=== PATIENT | female | born 1935 | race Caucasian/White ===

== ENCOUNTER → 2016-11-20 | Outpatient (CLI) | payer MEDICARE ==
--- NOTE | 2016-11-21 09:03 | MM ---
Reason for exam: screening (asymptomatic). Last mammogram was performed 1 year ago. History: Patient is postmenopausal and has history of endometrial cancer at age 31. Family history of premenopausal breast cancer in maternal grandmother at age 40 and breast cancer in maternal aunt. Taking estrogen for 38 years beginning at age 57. Physical Findings: A clinical breast exam by your physician is recommended on an annual basis and results should be correlated with mammographic findings. MG 3D Screening Mammo W/Cad Bilateral CC and MLO view(s) were taken. Prior study comparison: November 17, 2015, bilateral MG 3d screening mammo w/cad. September 23, 2014, bilateral MG screening mammo w CAD. September 11, 2013, bilateral digital screening mammo w/CAD. There are scattered fibroglandular densities. Finding: There are typically benign round calcifications in both breasts. There is no discrete abnormality. ASSESSMENT: Benign, BI-RAD 2 RECOMMENDATION: Routine screening mammogram of both breasts in 1 year.
== END | disposition home or self-care (01) ==
LOC: RADMAMWWP 12:46 → EEVIPCON 13:00
PROVIDERS: ATTEND Family Medicine
DX: Z12.31 Encounter for screening mammogram for malignant neoplasm of breast (principal); Z80.3 Family history of malignant neoplasm of breast; Z98.82 Breast implant status
CPT/HCPCS: 77063; G0202

== ENCOUNTER → 2017-11-26 | Outpatient (CLI) | payer MEDICARE ==
--- NOTE | 2017-11-27 14:30 | MM ---
Reason for exam: screening (asymptomatic). Last mammogram was performed 1 year ago. History: Patient is postmenopausal and has history of endometrial cancer at age 31. Family history of premenopausal breast cancer in maternal grandmother at age 40 and breast cancer in maternal aunt. Taking estrogen for 38 years beginning at age 57. Physical Findings: A clinical breast exam by your physician is recommended on an annual basis and results should be correlated with mammographic findings. MG 3D Screening Mammo W/Cad Bilateral CC and MLO view(s) were taken. Prior study comparison: November 20, 2016, bilateral MG 3d screening mammo w/cad. November 17, 2015, bilateral MG 3d screening mammo w/cad. There are scattered fibroglandular densities. There is a stable left breast mass back to 11/17/15. Benign calcifications bilaterally. No suspicious abnormality. ASSESSMENT: Benign, BI-RAD 2 RECOMMENDATION: Routine screening mammogram of both breasts in 1 year.
== END | disposition home or self-care (01) ==
LOC: RADMAMWWP 13:06
PROVIDERS: ATTEND Family Medicine
DX: Z12.31 Encounter for screening mammogram for malignant neoplasm of breast (principal)
CPT/HCPCS: 77063; 77067

== ENCOUNTER 2018-09-10 15:34 | Inpatient (IN) | payer MEDICARE ==
[2018-09-10] MEDS ORDERED: SODIUM CHLORIDE 0.9% 1,000 ML IV STA (17:04)
[2018-09-10] MEDS ORDERED: SODIUM CHLORIDE 0.9% 500 ML 500 ML IV STA (17:04)
[2018-09-10] MEDS ORDERED: cefTRIAXone 2,000 MG in SODIUM CHLORIDE 0.9% 100 ML IVPB STA (17:05)
--- NOTE | 2018-09-10 17:23 | ED ---
Skin/Abscess/FB HPI - General Chief complaint: Skin/Abscess/Foreign Body Stated complaint: Rash groin area Time Seen by Provider: 09/10/18 16:41 Source: patient Mode of arrival: ambulatory Limitations: no limitations - History of Present Illness Initial comments: This is an 83-year-old female to the ER for evaluation she presents today for evaluation regards to rash. Patient has 2 rashes or rashes on her lower back area on the right side that is painful she also has rash since under her legs and her vagina or vaginal area. Patient also states she has burning and itching or vaginal area as well as dysuria. Patient denies fevers she does have history of diabetes. No current abdominal pain. No modifying factors for symptoms of been increasing for the last 3 days. Family does state the patient does not have very good hygiene or showers. MD complaint: rash (Posterior back and vaginal perineal area), other (Cellulitis ) -: days(s) Tetanus Up to Date: yes Location: buttocks, genitals Severity: moderate Severity scale (1-10): 4 Quality: aching, constant Consistency: constant Improves with: none Worsens with: none Context: none Associated symptoms: other (Dysuria) Treatments Prior to Arrival: none - Related Data Home Medications Medication Instructions Recorded Confirmed Omeprazole 20 mg PO DAILY 11/29/16 09/10/18 ARIPiprazole [Abilify Maintena] 300 mg IM Q28D 09/10/18 09/10/18 Cephalexin [Keflex] 500 mg PO DAILY 09/10/18 09/10/18 Levothyroxine Sodium [Synthroid] 75 mcg PO DAILY 09/10/18 09/10/18 amLODIPine [Norvasc] 5 mg PO DAILY 09/10/18 09/10/18 Allergies Allergy/AdvReac Type Severity Reaction Status Date / Time grape [Raisin] Allergy Severe Anaphylaxis Verified 09/11/18 15:42 acetaminophen Allergy Chest Pain Verified 09/10/18 16:46 [From Darvocet-N 100] atorvastatin Allergy Dyspnea Verified 09/10/18 16:46 codeine Allergy Hallucinati Verified 09/10/18 16:46 ons erythromycin base Allergy Chest Pain Verified 09/10/18 16:46 hydrocodone Allergy Chest Pain Verified 09/10/18 16:46 hydromorphone HCl Allergy Dyspnea Verified 09/10/18 16:46 [From Dilaudid] levofloxacin [From Levaquin] Allergy Hallucinati Verified 09/10/18 16:46 ons loratadine Allergy Chest Pain Verified 09/10/18 16:46 meperidine Allergy Chest Pain Verified 09/10/18 16:46 montelukast Allergy Unknown Verified 09/10/18 16:46 morphine Allergy Unknown Verified 09/10/18 16:46 Mushroom Allergy Anaphylaxis Verified 09/11/18 15:42 oxycodone HCl Allergy Hallucinati Verified 09/10/18 16:46 [From OxyContin] ons Penicillins Allergy Unknown Verified 09/10/18 16:46 pentazocine lactate Allergy "BLOOD Verified 09/10/18 16:46 [From Talwin] PRESSURE DROPPED" prednisone Allergy Unknown Verified 09/10/18 16:46 propoxyphene napsylate Allergy Chest Pain Verified 09/10/18 16:46 [From Darvocet-N 100] risperidone [From Risperdal] Allergy Rash/Hives Verified 09/10/18 16:46 tramadol HCl [From Ultram] Allergy Hallucinati Verified 09/10/18 16:46 ons ramipril AdvReac LIGHTHEADED Verified 09/10/18 16:46 NESS sulfamethoxazole AdvReac THRUSH Verified 09/10/18 16:46 [From Bactrim] trimethoprim [From Bactrim] AdvReac THRUSH Verified 09/10/18 16:46 Review of Systems ROS Statement: Those systems with pertinent positive or pertinent negative responses have been documented in the HPI. ROS Other: All systems not noted in ROS Statement are negative. Past Medical History Past Medical History: COPD, CVA/TIA, Dementia, Diabetes Mellitus, Fibromyalgia, Hypertension, Renal Disease, Sleep Apnea/CPAP/BIPAP, Thyroid Disorder Additional Past Medical History / Comment(s): Celiac disease. NIDDMdiet controlled. MILD CVA in 2006. Hypothyroidism. 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 CATARACT. History of Any Multi-Drug Resistant Organisms: None Reported Past Surgical History: Appendectomy, Cholecystectomy, Hysterectomy, Joint Replacement, Orthopedic Surgery Additional Past Surgical History / Comment(s): TOTAL KARTIK Knees. Cervical fusion ; Left Shoulder; Thyroid surgery. CTR. EXC RT CATARACT 12/07/15. left eye surgery Past Anesthesia/Blood Transfusion Reactions: No Reported Reaction Past Psychological History: No Psychological Hx Reported Smoking Status: Never smoker Past Alcohol Use History: None Reported Past Drug Use History: None Reported - Past Family History Father Family Medical History: Cancer Additional Family Medical History / Comment(s): Father at age 79 from lung cancer. Mother Family Medical History: Diabetes Mellitus Additional Family Medical History / Comment(s): Mother at age 78 from complications from diabetes. Brother(s) Family Medical History: Myocardial Infarction (VT) Additional Family Medical History / Comment(s): Patient has one sister that lives in [place] and she does not know any medical history. General Exam - General Exam Comments Initial Comments: Patient does have zoster-like rash to right upper back Patient does have significant edema and erythema to right pelvic, perineal, vulvar area, edema and tenderness and warmth Limitations: no limitations General appearance: alert, in no apparent distress Head exam: Present: atraumatic, normocephalic, normal inspection Eye exam: Present: normal appearance, PERRL, EOMI. Absent: scleral icterus, conjunctival injection, periorbital swelling ENT exam: Present: normal exam, mucous membranes moist Neck exam: Present: normal inspection. Absent: tenderness, meningismus, lymphadenopathy Respiratory exam: Present: normal lung sounds bilaterally. Absent: respiratory distress, wheezes, rales, rhonchi, stridor Cardiovascular Exam: Present: regular rate, normal rhythm, normal heart sounds. Absent: systolic murmur, diastolic murmur, rubs, gallop, clicks GI/Abdominal exam: Present: soft, normal bowel sounds. Absent: distended, tenderness, guarding, rebound, rigid Extremities exam: Present: normal inspection, full ROM, normal capillary refill. Absent: tenderness, pedal edema, joint swelling, calf tenderness Back exam: Present: normal inspection Neurological exam: Present: alert, oriented X3, CN II-XII intact Psychiatric exam: Present: normal affect, normal mood Skin exam: Present: warm, dry, intact, normal color. Absent: rash Course Vital Signs 09/10/18 09/10/18 09/10/18 15:46 18:31 18:38 Temperature 98.4 F Pulse Rate 94 Respiratory 18 18 18 Rate Blood Pressure 134/68 150/75 155/75 O2 Sat by Pulse 96 97 Oximetry 09/10/18 20:54 Temperature 99.3 F Pulse Rate 81 Respiratory 16 Rate Blood Pressure 151/75 O2 Sat by Pulse 96 Oximetry - Reevaluation(s) Reevaluation #1: Patient medical record is reviewed Reevaluation #2: Social patient at length regarding findings, need for IV antibiotics, family is agreeable for admission - Consultations Consultation #1: spoke w Dr Horton, re admission he is aware and agreeable Medical Decision Making - Medical Decision Making 83 female the ER for evaluation patient does have pelvic cellulitis, I do believe patient also has zoster, and contact with urinary tract infection, which she with IV antibiotics and admit for continued IV antibiotics. Wound care. - Lab Data Result diagrams: 09/10/18 18:07 09/10/18 18:07 Lab Results 09/10/18 09/10/18 09/10/18 Range/Units 18:07 18:07 18:07 WBC 7.6 (3.8-10.6) k/uL RBC 5.29 (3.80-5.40) m/uL Hgb 14.7 (11.4-16.0) gm/dL Hct 45.5 (34.0-46.0) % MCV 86.0 (80.0-100.0) fL MCH 27.8 (25.0-35.0) pg MCHC 32.3 (31.0-37.0) g/dL RDW 14.9 (11.5-15.5) % Plt Count 209 (150-450) k/uL Neutrophils % 81 % Lymphocytes % 9 % Monocytes % 6 % Eosinophils % 1 % Basophils % 1 % Neutrophils # 6.1 (1.3-7.7) k/uL Lymphocytes # 0.7 L (1.0-4.8) k/uL Monocytes # 0.4 (0-1.0) k/uL Eosinophils # 0.1 (0-0.7) k/uL Basophils # 0.0 (0-0.2) k/uL Sodium 140 (137-145) mmol/L Potassium 5.4 H (3.5-5.1) mmol/L Chloride 108 H (98-107) mmol/L Carbon Dioxide 22 (22-30) mmol/L Anion Gap 10 mmol/L BUN 22 H (7-17) mg/dL Creatinine 0.95 (0.52-1.04) mg/dL Est GFR (CKD-EPI)AfAm 65 (>60 ml/min/1.73 sqM) Est GFR (CKD-EPI)NonAf 57 (>60 ml/min/1.73 sqM) Glucose 112 H (74-99) mg/dL Plasma Lactic Acid Benedict (0.7-2.0) mmol/L Calcium 9.2 (8.4-10.2) mg/dL Phosphorus 4.4 (2.5-4.5) mg/dL Magnesium 2.2 (1.6-2.3) mg/dL Total Bilirubin 1.0 (0.2-1.3) mg/dL AST 48 H (14-36) U/L ALT 26 (9-52) U/L Alkaline Phosphatase 76 (38-126) U/L Total Creatine Kinase 50 (30-135) U/L CK-MB (CK-2) 0.3 (0.0-2.4) ng/mL CK-MB (CK-2) Rel Index 0.6 Troponin I <0.012 (0.000-0.034) ng/mL Total Protein 8.1 (6.3-8.2) g/dL Albumin 4.2 (3.5-5.0) g/dL Urine Color Urine Appearance (Clear) Urine pH (5.0-8.0) Ur Specific [place] (1.001-1.035) Urine Protein (Negative) Urine Glucose (UA) (Negative) Urine Ketones (Negative) Urine Blood (Negative) Urine Nitrite (Negative) Urine Bilirubin (Negative) Urine Urobilinogen (<2.0) mg/dL Ur Leukocyte Esterase (Negative) Urine RBC (0-5) /hpf Urine WBC (0-5) /hpf Ur Squamous Epith Cells (0-4) /hpf Calcium Oxalate Crystal (None) /hpf Urine Bacteria (None) /hpf Hyaline Casts (0-2) /lpf Urine Mucus (None) /hpf 09/10/18 09/10/18 Range/Units 18:07 18:07 WBC (3.8-10.6) k/uL RBC (3.80-5.40) m/uL Hgb (11.4-16.0) gm/dL Hct (34.0-46.0) % MCV (80.0-100.0) fL MCH (25.0-35.0) pg MCHC (31.0-37.0) g/dL RDW (11.5-15.5) % Plt Count (150-450) k/uL Neutrophils % % Lymphocytes % % Monocytes % % Eosinophils % % Basophils % % Neutrophils # (1.3-7.7) k/uL Lymphocytes # (1.0-4.8) k/uL Monocytes # (0-1.0) k/uL Eosinophils # (0-0.7) k/uL Basophils # (0-0.2) k/uL Sodium (137-145) mmol/L Potassium (3.5-5.1) mmol/L Chloride (98-107) mmol/L Carbon Dioxide (22-30) mmol/L Anion Gap mmol/L BUN (7-17) mg/dL Creatinine (0.52-1.04) mg/dL Est GFR (CKD-EPI)AfAm (>60 ml/min/1.73 sqM) Est GFR (CKD-EPI)NonAf (>60 ml/min/1.73 sqM) Glucose (74-99) mg/dL Plasma Lactic Acid Benedict 1.5 (0.7-2.0) mmol/L Calcium (8.4-10.2) mg/dL Phosphorus (2.5-4.5) mg/dL Magnesium (1.6-2.3) mg/dL Total Bilirubin (0.2-1.3) mg/dL AST (14-36) U/L ALT (9-52) U/L Alkaline Phosphatase (38-126) U/L Total Creatine Kinase (30-135) U/L CK-MB (CK-2) (0.0-2.4) ng/mL CK-MB (CK-2) Rel Index Troponin I (0.000-0.034) ng/mL Total Protein (6.3-8.2) g/dL Albumin (3.5-5.0) g/dL Urine Color Yellow Urine Appearance Cloudy H (Clear) Urine pH 5.5 (5.0-8.0) Ur Specific [place] 1.021 (1.001-1.035) Urine Protein Trace H (Negative) Urine Glucose (UA) Negative (Negative) Urine Ketones Negative (Negative) Urine Blood Small H (Negative) Urine Nitrite Negative (Negative) Urine Bilirubin Negative (Negative) Urine Urobilinogen <2.0 (<2.0) mg/dL Ur Leukocyte Esterase Large H (Negative) Urine RBC 12 H (0-5) /hpf Urine WBC 50 H (0-5) /hpf Ur Squamous Epith Cells 3 (0-4) /hpf Calcium Oxalate Crystal Few H (None) /hpf Urine Bacteria Rare H (None) /hpf Hyaline Casts 6 H (0-2) /lpf Urine Mucus Many H (None) /hpf - Radiology Data Radiology results: report reviewed (CT of the pelvis that show cellulitis), image reviewed Disposition Clinical Impression: UTI (urinary tract infection), Pyelonephritis, Shingles, Vulvar cellulitis Disposition: ADMITTED IP TO THIS HOSP Condition: Fair Is patient prescribed a controlled substance at d/c from ED?: No
[2018-09-10 18:37] LABS: Basophils % (A) 1 %; Eosinophils # (A) 0.1 k/uL (0-0.7); Eosinophils % (A) 1 %; HCT 45.5 % (34.0-46.0); HGB 14.7 gm/dL (11.4-16.0); Lymphocytes # (A) 0.7 k/uL (1.0-4.8); Lymphocytes % (A) 9 %; MCH 27.8 pg (25.0-35.0); MCHC 32.3 g/dL (31.0-37.0); Monocytes # (A) 0.4 k/uL (0-1.0); Monocytes % (A) 6 %; Neutrophils # (A) 6.1 k/uL (1.3-7.7); Neutrophils % (A) 81 %; Platelet Count 209 k/uL (150-450); RBC 5.29 m/uL (3.80-5.40); RDW 14.9 % (11.5-15.5); WBC 7.6 k/uL (3.8-10.6)
[2018-09-10 18:44] LABS: Appearance,Urine Cloudy (Clear); Bacteria,Urine Rare /hpf; Bilirubin,Urine Negative (Negative); Blood,Urine Small (Negative); Calcium Oxalate Crystals,Urine Few /hpf; Color,Urine Yellow; Glucose,Urine (UA) Negative (Negative); Hyaline Casts,Urine 6 /lpf (0-2); Ketones,Urine Negative (Negative); Leukocyte Esterase,Urine Large (Negative); Mucus,Urine Many /hpf; Nitrite,Urine Negative (Negative); PH, Urine 5.5 (5.0-8.0); Protein,Urine Trace (Negative); RBC,Urine 12 /hpf (0-5); Specific Gravity,Urine 1.021 (1.001-1.035); Squamous Epithelial Cell,Urine 3 /hpf (0-4); Urobilinogen,Urine <2.0 mg/dL (<2.0); WBC,Urine 50 /hpf (0-5)
[2018-09-10 18:54] LABS: Albumin 4.2 g/dL (3.5-5.0); Calcium 9.2 mg/dL (8.4-10.2); Magnesium 2.2 mg/dL (1.6-2.3); Phosphorus 4.4 mg/dL (2.5-4.5); Total Protein 8.1 g/dL (6.3-8.2)
[2018-09-10 18:55] LABS: Potassium 5.4 mmol/L (3.5-5.1)
[2018-09-10 19:02] LABS: Creatine Kinase 50 U/L (30-135)
[2018-09-10 19:15] LABS: Creatine Kinase MB 0.3 ng/mL (0.0-2.4); Troponin I <0.012 ng/mL (0.000-0.034)
--- NOTE | 2018-09-10 20:04 | CT ---
EXAMINATION TYPE: CT pelvis w con DATE OF EXAM: 09/10/2018 COMPARISON: None HISTORY: Rash on buttocks to vaginal region CT DLP: 615.2 mGycm Automated exposure control for dose reduction was used. CONTRAST: Performed with IV Contrast, patient injected with 80 mL of Isovue 300. FINDINGS: The bladder distends smoothly. There is some fecal material retained in the large bowel. There is no free fluid in the pelvis. I see no pelvic mass. There is no evidence of pelvic lymphadenopathy. Appen sanjay is not seen. There is subcutaneous and cutaneous increased density posteriorly over the upper thighs and lower but tocks. This is more on the right side. There is no soft tissue air. There is no discrete fluid collec tion. The [place] femurs and hip joints are intact. Bony pelvis is intact. There are some spondylotic changes in the lower lumbar spine. There is no compression fracture. IMPRESSION: THERE IS SUBCUTANEOUS EDEMA ABOVE ON THE RIGHT SIDE MORE THAN THE LEFT OVER THE POSTERIOR BUTTOCKS CONSISTENT WITH CELLULITIS. NO ABSCESS SEEN. NO ACUTE ABNORMALITY SEEN WITHIN THE PELVIS.
[2018-09-10] MEDS ORDERED: ONDANSETRON 4 MG/2 ML VIAL IVP STA (20:11)
[2018-09-10] MEDS ORDERED: VANCOMYCIN IV PER PHARMACY 1 EACH MISC MISCELLANE PRN (20:27)
[2018-09-10] MEDS ORDERED: VANCOMYCIN 1,500 MG in SODIUM CHLORIDE 0.9% 250 ML IVPB STA (20:37)
[2018-09-10 22:26] LABS: Partial Thromboplastin Time 23.8 sec (22.0-30.0); Prothrombin Time 10.3 sec (9.0-12.0)
[2018-09-10] MEDS ORDERED: ONDANSETRON 4 MG/2 ML VIAL IVP PRN (23:44)
[2018-09-11] MEDS: amLODIPine 5 MG TAB PO SCH (08:07)
[2018-09-11] MEDS: LEVOTHYROXINE 75 MCG TAB PO SCH (08:07)
[2018-09-11] MEDS: ENOXAPARIN 40 MG/0.4 ML SYRINGE SQ SCH (08:08)
[2018-09-11] MEDS: PANTOPRAZOLE 40 MG TABLET PO SCH (08:23)
[2018-09-11] MEDS ORDERED: VANCOMYCIN 1,500 MG in SODIUM CHLORIDE 0.9% 250 ML IVPB SCH (09:00)
[2018-09-11] MEDS: ASPIRIN 325 MG TAB PO PRN (14:30)
[2018-09-11] MEDS: valACYclovir 500 MG TAB PO SCH ×2 (15:09→23:13)
[2018-09-11] MEDS: PREGABALIN 50 MG CAP PO SCH (20:19)
--- NOTE | 2018-09-11 23:27 | HP ---
HISTORY AND PHYSICAL CHIEF COMPLAINT: An 83-year-old female came into the emergency room due to cellulitis and rash on the right lower buttock, painful, and also left lower quadrant abdominal pain. She was found to have a UTI of significant nature and cellulitis of the right buttock and shingles of the right buttock. Pain is 6/10, associated with dysuria. Very painful rash to her right buttock. HOME MEDICATIONS: 1. Abilify injection every 28 days, 300 mg. 2. Synthroid 75 mcg daily. 3. Keflex 500 daily. 4. Norvasc 5 mg daily. 5. Omeprazole 20 daily. ALLERGIES: Multiple, see list. PAST MEDICAL HISTORY: COPD, CVA, TIA, dementia, diabetes mellitus, fibromyalgia, hypertension, renal disease, sleep apnea, hypothyroidism. SURGERIES: Appendectomy, cholecystectomy, hysterectomy, joint replacement, orthopedic surgery, bilateral knee surgery. FAMILY HISTORY: Father with lung cancer, mother with diabetes mellitus. FAMILY HISTORY: Brother with myocardial infarction. REVIEW OF SYSTEMS: Fourteen point review of systems negative except for as mentioned in HPI. PHYSICAL EXAM: Vital signs stable, afebrile. CARDIOVASCULAR: S1, S2. LUNGS: Clear. GI: Soft. INTEGUMENT: Pruritic pustules with scab formation over the right buttock area with severe erythema and perivesicular rash on the entire right buttock. LUNGS: Clear. CARDIOVASCULAR: S1, S2. MUSCULOSKELETAL: She is up ambulating. VITAL SIGNS: T-max 98.4, respiratory rate 16 to 18, blood pressure 130 to 150/60 to 70. EXTREMITIES: Cellulitis of the lower right buttock. ASSESSMENT: 1. Acute herpes simplex of the right buttock. 2. Gastroesophageal reflux disease. 3. Bipolar. PLAN: Please see further orders. IV antibiotics and antivirals. She is allergic to steroids. Maybe some Neurontin will be given for pain. Please see further orders. MMODL / IJN: [id number] /
--- NOTE | 2018-09-11 23:56 | CONS ---
CONSULTATION DATE OF SERVICE: 09/11/2018 REASON FOR CONSULTATION: 1. Gluteal rash. 2. UTI. HISTORY OF PRESENT ILLNESS: The patient is an 83-year-old wound female who was brought into the ER at [facility] on 09/10/2018 with chief complaint of a painful rash to her right gluteal area that apparently had been going on for the last few days. The patient described the rash to be painful; pain is mostly burning, 5 to 6 out of 10, and no radiation. The patient did mention it is hard to sit on that area because of the pain, so she has to change her position. She did have a small blister but no drainage or any open wound. The patient denies high-grade fever, rigors or chills. Patient also noticed some burning of urine but no frequency or any suprapubic or flank pain. With these symptoms, the patient was evaluated by the ER physician on arrival in the ER. Patient did have a CT of the pelvic area which showed some cellulitis of the gluteal area, but no other abnormality or drainable abscess. She did have a low-grade fever of 99.1; however, white count was not elevated. Urine was positive with large leukocyte esterase with 50 WBCs. Cultures are currently pending. The patient was started on vancomycin and Rocephin. Infectious Disease was consulted for further recommendations regarding antibiotic therapy. REVIEW OF SYSTEMS: Positive points have been mentioned in the HPI. Rest of the 14 systems are negative. PAST MEDICAL HISTORY: 1. COPD. 2. CVA, TIA. 3. Diabetes mellitus. 4. Fibromyalgia. 5. Hypertension. 6. Renal insufficiency. 7. Hypothyroidism. 8. Sleep apnea. 9. Celiac disease. PAST SURGICAL HISTORY: 1. Appendectomy. 2. Cholecystectomy. 3. Hysterectomy. 4. Total bilateral knee replacement. 5. Cervical fusion. SOCIAL HISTORY: No history of smoking, drinking or drug use. FAMILY HISTORY: Father from lung cancer at age of 79. Mother with history of diabetes mellitus. ALLERGIES: MULTIPLE MEDICATIONS, INCLUDING SULFA, PENICILLIN, LEVAQUIN. CURRENT MEDICATIONS: 1. Norvasc. 2. Aspirin. 3. Rocephin 1 gram daily q.12. 4. Lovenox. 5. Synthroid. 6. Zofran. 7. Protonix. 8. Vancomycin, Pharmacy to dose. PHYSICAL EXAMINATION: Blood pressure is 114/65, pulse of 78, temperature 98.8. She is 97% on room air. General description is an elderly female lying in bed in no distress. No tachypnea or accessory muscle of respiration use. HEENT examination shows no pallor or scleral icterus. Oral mucosa membrane is dry. No pharyngeal erythema or thrush. NECK: Trachea is central. No thyromegaly. LUNGS: Unlabored breathing. Clear to auscultation anteriorly. No wheeze or crackle. HEART: S1, S2. Regular rate and rhythm. ABDOMEN: Soft. No tenderness. No guarding or rigidity. EXTREMITIES: No edema of the feet. Examination of the gluteal area in the presence of the RN showed a vesicular rash involving the S2 dermatome on the right side. Minimal surrounding redness. No induration or purulent drainage. Neurologically the patient is awake, alert, oriented x3. Mood and affect normal. LABS: Urine has been cloudy with large leukocyte esterase and WBCs. Hemoglobin is 14.7, white count 7.6, BUN of 22, creatinine 0.95. DIAGNOSTIC IMPRESSION AND PLAN: 1. Patient with a right S3 dermatome zoster and less likely a secondary cellulitis. Would recommend antiviral therapy only with Lyrica for the neuropathic pain. 2. Patient who did have a positive urinalysis with a component of urinary tract infection likely. 3. Patient does have MULTIPLE ANTIBIOTIC ALLERGIES. That will limit the number of antibiotic therapies it will be safe to use. PLAN: 1. Discontinue vancomycin to decrease risk of nephrotoxicity. 2. Start the patient on Valtrex 1 gram q.8 hours. 3. Rocephin 1 gram daily for underlying UTI. 4. 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 5. We will follow up on the clinical condition and culture to further adjust medication if needed. Thank you for this consultation. Will follow this patient along with you. MMODL / IJN: [id number] / MTDD
[2018-09-12] MEDS: ASPIRIN 325 MG TAB PO PRN ×2 (00:25→13:23)
[2018-09-12] MEDS: LEVOTHYROXINE 75 MCG TAB PO SCH (05:30)
[2018-09-12] MEDS: PREGABALIN 50 MG CAP PO SCH ×2 (08:29→22:11)
[2018-09-12] MEDS: valACYclovir 500 MG TAB PO SCH ×3 (08:30→22:11)
[2018-09-12] MEDS: amLODIPine 5 MG TAB PO SCH (08:30)
[2018-09-12] MEDS: ENOXAPARIN 40 MG/0.4 ML SYRINGE SQ SCH (08:30)
[2018-09-12] MEDS: PANTOPRAZOLE 40 MG TABLET PO SCH (08:30)
[2018-09-12 09:37] LABS: Albumin 3.3 g/dL (3.5-5.0); Basophils % (A) 1 %; Calcium 8.5 mg/dL (8.4-10.2); Eosinophils # (A) 0.1 k/uL (0-0.7); Eosinophils % (A) 2 %; HGB 12.5 gm/dL (11.4-16.0); Lymphocytes # (A) 0.9 k/uL (1.0-4.8); Lymphocytes % (A) 14 %; MCH 27.1 pg (25.0-35.0); MCHC 31.2 g/dL (31.0-37.0); MCV 86.6 fL (80.0-100.0); Mean Platelet Volume 6.7; Monocytes # (A) 0.4 k/uL (0-1.0); Monocytes % (A) 6 %; Neutrophils # (A) 4.5 k/uL (1.3-7.7); Neutrophils % (A) 73 %; Platelet Count 181 k/uL (150-450); Potassium 4.3 mmol/L (3.5-5.1); RBC 4.62 m/uL (3.80-5.40); RDW 14.8 % (11.5-15.5); Total Bilirubin 0.4 mg/dL (0.2-1.3); Total Protein 6.4 g/dL (6.3-8.2); WBC 6.2 k/uL (3.8-10.6)
--- NOTE | 2018-09-12 15:40 | PN ---
PROGRESS NOTE DATE OF SERVICE: 09/12/2018 REASON FOR FOLLOWUP: 1. Right S3 dermatome zoster. 2. UTI. INTERVAL HISTORY: The patient did spike a fever of 100.7 last night for which the blood culture was repeated. Patient complaining of pain to the right gluteal area though slightly decreased in intensity. Patient denies having any chest pain or shortness of breath. No cough, no abdominal pain, no diarrhea. PHYSICAL EXAMINATION: Blood pressure 139/72 with a pulse of 69, temperature 98, she is 96% on room air. General description is an elderly female, up in the room, in no distress. RESPIRATORY SYSTEM: Unlabored breathing, clear to auscultation anteriorly. HEART: S1, S2. Regular rate and rhythm. ABDOMEN: Soft, no tenderness. LABS: Hemoglobin 12.1, white count 6.2 with a BUN of 14, creatinine 0.82. Urine culture currently pending. DIAGNOSTIC IMPRESSION AND PLAN: 1. Patient with right S3 dermatome zoster with no evidence of any secondary cellulitis. Recommend Valtrex 1 g q.8 for total of 8 days. 2. Patient with urinary tract infection, possible nephritis. We are waiting for the urine culture to finalize. Keep the patient on the Rocephin with discharge depending upon the culture report. Continue supportive care. Daughter was present at bedside. Questions were answered. MMODL / IJN: [id number] /
[2018-09-13 00:26] VITALS: RESP 16
[2018-09-13] MEDS: ASPIRIN 325 MG TAB PO PRN ×2 (04:09→12:56)
[2018-09-13 07:39] VITALS: BP 120/69; PULSE 65; TEMP 98.2
[2018-09-13 08:35] LABS: Calcium 8.5 mg/dL (8.4-10.2); Potassium 4.2 mmol/L (3.5-5.1)
[2018-09-13] MEDS: amLODIPine 5 MG TAB PO SCH (09:40)
[2018-09-13] MEDS: PANTOPRAZOLE 40 MG TABLET PO SCH (09:40)
[2018-09-13] MEDS: LEVOTHYROXINE 75 MCG TAB PO SCH (09:40)
[2018-09-13] MEDS: valACYclovir 500 MG TAB PO SCH ×2 (09:41→15:29)
[2018-09-13] MEDS: PREGABALIN 50 MG CAP PO SCH (09:41)
[2018-09-13] MEDS: ENOXAPARIN 40 MG/0.4 ML SYRINGE SQ SCH (09:41)
--- NOTE | 2018-09-13 16:08 | PN ---
PROGRESS NOTE DATE OF SERVICE: 09/13/2018 REASON FOR FOLLOWUP: 1. Right S3 dermatome zoster. 2. UTI. INTERVAL HISTORY: The patient is currently afebrile. She is breathing comfortably. Pain to the right gluteal area has decreased in intensity. The patient denies having any chest pain or shortness of breath or cough. No abdominal pain or diarrhea. PHYSICAL EXAMINATION: Blood pressure 120/69 with a pulse 55, temperature 98.2. She is 96% on room air. General description is an elderly female up in the room in no distress. RESPIRATORY SYSTEM: Unlabored breathing. Clear to auscultation anteriorly. HEART: S1, S2. Regular rate and rhythm. ABDOMEN: Soft. No tenderness. The right gluteal rash is crusting off. No new vesical lesion has been noted. The redness has decreased as well. LABS: BUN of 14, creatinine 0.96. Blood culture negative. Urine culture so far negative. DIAGNOSTIC IMPRESSION AND PLAN: 1. Patient with right S3 dermatome zoster with no cellulitis. Recommend finishing therapy with Valtrex 1 gram q.8 hours for a total of 7 days and Lyrica for post- herpetic neurologic pain. 2. Patient with possible mild urinary tract infection; short course of oral Ceftin and close outpatient followup. Daughter was present at bedside. Questions were answered. MMODL / IJN: [id number] /
== END 2018-09-13 15:37 | disposition home health service (06) | DRG 596 ==
LOC: EC 15:34 → 4SSUR 20:32 → INTOOBSV 20:32 → OBSVTOIN 09-12 14:50
PROVIDERS: ADMIT Family Medicine; ATTEND Family Medicine
DX: B02.9 Zoster without complications (principal); N39.0 Urinary tract infection, site not specified; E03.9 Hypothyroidism, unspecified; E11.9 Type 2 diabetes mellitus without complications; F03.90 Unspecified dementia, unspecified severity, without behavioral disturbance, psychotic disturbance, mood disturbance, and anxiety; G47.30 Sleep apnea, unspecified; I10 Essential (primary) hypertension; J44.9 Chronic obstructive pulmonary disease, unspecified; K21.9 Gastro-esophageal reflux disease without esophagitis; K90.0 Celiac disease; M79.7 Fibromyalgia; Z79.890 Hormone replacement therapy; Z79.899 Other long term (current) drug therapy; Z88.6 Allergy status to analgesic agent; Z88.1 Allergy status to other antibiotic agents; Z88.5 Allergy status to narcotic agent; Z88.0 Allergy status to penicillin; Z88.2 Allergy status to sulfonamides; Z88.8 Allergy status to other drugs, medicaments and biological substances; Z91.018 Allergy to other foods; Z86.73 Personal history of transient ischemic attack (TIA), and cerebral infarction without residual deficits; Z90.710 Acquired absence of both cervix and uterus; Z96.653 Presence of artificial knee joint, bilateral; Z98.1 Arthrodesis status; Z90.49 Acquired absence of other specified parts of digestive tract; Z98.42 Cataract extraction status, left eye; Z98.41 Cataract extraction status, right eye; Z96.1 Presence of intraocular lens; Z80.1 Family history of malignant neoplasm of trachea, bronchus and lung; Z82.49 Family history of ischemic heart disease and other diseases of the circulatory system; Z83.3 Family history of diabetes mellitus
CPT/HCPCS: 36415; 72193; 80048; 80053; 81001; 82550; 82553; 83605; 83735; 84100; 84484; 85025; 85610; 85730; 87040; 87086; 96361; 96365; 96366; 96375; 99284

== ENCOUNTER → 2019-01-02 | Outpatient (CLI) | payer MEDICARE ==
[2019-01-02 11:22] LABS: Basophils # (A) 0.1 k/uL (0-0.2); Basophils % (A) 1 %; Eosinophils # (A) 0.3 k/uL (0-0.7); Eosinophils % (A) 4 %; HCT 48.2 % (34.0-46.0); HGB 15.1 gm/dL (11.4-16.0); Hypochromasia Slight; Lymphocytes # (A) 1.1 k/uL (1.0-4.8); Lymphocytes % (A) 16 %; MCH 27.7 pg (25.0-35.0); MCHC 31.3 g/dL (31.0-37.0); MCV 88.4 fL (80.0-100.0); Mean Platelet Volume 7.1; Monocytes # (A) 0.3 k/uL (0-1.0); Monocytes % (A) 4 %; Neutrophils # (A) 5.4 k/uL (1.3-7.7); Neutrophils % (A) 74 %; Platelet Count 215 k/uL (150-450); RBC 5.45 m/uL (3.80-5.40); RDW 14.4 % (11.5-15.5); WBC 7.3 k/uL (3.8-10.6)
[2019-01-02 16:07] LABS: Albumin 4.3 g/dL (3.80-4.90); Albumin/Globulin Ratio 1.59 (1.60-3.17); Anion Gap 12.1 mmol/L (4.00-12.00); Calcium 9.4 mg/dL (8.7-10.3); Carbon Dioxide 22.9 mmol/L (21.6-31.8); Globulin 2.7 g/dL (1.6-3.3); LDL Cholesterol,Calculated 124.2 mg/dL (0.0-131.0); Potassium 4.2 mmol/L (3.5-5.5); Total Bilirubin 0.4 mg/dL (0.2-1.2); VLDL Calculation 39.8 mg/dL (5.00-40.00)
[2019-01-02 16:14] LABS: T4, Free (Free Thyroxine) 1.2 ng/dL (0.80-1.80)
[2019-01-02 19:58] LABS: Hemoglobin A1C 6.2 % (4.0-6.0)
== END | disposition home or self-care (01) ==
LOC: LABWHC1 10:52
PROVIDERS: ATTEND Family Medicine
DX: I10 Essential (primary) hypertension (principal); E06.3 Autoimmune thyroiditis; R73.01 Impaired fasting glucose; F03.90 Unspecified dementia, unspecified severity, without behavioral disturbance, psychotic disturbance, mood disturbance, and anxiety
CPT/HCPCS: 36415; 80053; 80061; 82607; 83036; 84439; 84443; 85025

== ENCOUNTER 2020-04-14 14:30 | Emergency (ER) | payer MEDICARE ==
[2020-04-14 14:50] VITALS: RESP 18; TEMP 98
--- NOTE | 2020-04-14 16:03 | ED ---
Back Pain HPI - General Chief Complaint: Back Pain/Injury Stated Complaint: Pulled muscle in back Time Seen by Provider: 04/14/20 14:56 Source: patient, RN notes reviewed, old records reviewed Limitations: no limitations - History of Present Illness Initial Comments: This is an 82-year-old female DF for evaluation patient Dese for evaluation of back pain right-sided back pain right-sided paraspinal pain no trauma. Taken aspirin at home for pain with no help. Symptoms 3 weeks no neurological issues no loss of bowel or bladder no weakness, no other complaints, symptoms are just not gotten better over that period of time MD Complaint: back pain, other (right back and rib injuries) -: week(s) (3) Similar Symptoms Previously: No Place: home Radiation: none Severity: moderate Severity scale (1-10): 7 Quality: sharp, aching Consistency: constant Improves With: none Worsens With: movement Context: while lifting, turning/twisting Associated Symptoms: denies other symptoms - Related Data Home Medications Medication Instructions Recorded Confirmed Omeprazole 20 mg PO DAILY 11/29/16 04/01/20 ARIPiprazole patients own 300 mg IM Q28D 09/10/18 04/01/20 [Abiliffranklin Maintena Patients Own] Levothyroxine Sodium [Synthroid] 75 mcg PO DAILY 09/10/18 04/01/20 hydrALAZINE HCL 25 mg PO BID 05/01/19 04/01/20 Losartan [Cozaar] 50 mg PO DAILY 05/29/19 04/01/20 Previous Rx's Medication Instructions Recorded Aspirin 650 mg PO BID PRN tab 09/12/18 Cephalexin [Keflex] 500 mg PO Q6HR 14 Days #64 cap 10/30/19 Allergies Allergy/AdvReac Type Severity Reaction Status Date / Time grape [Raisin] Allergy Severe Anaphylaxis Verified 04/14/20 14:50 acetaminophen Allergy Chest Pain Verified 04/14/20 14:50 [From Darvocet-N 100] atorvastatin Allergy Dyspnea Verified 04/14/20 14:50 codeine Allergy Hallucinati Verified 04/14/20 14:50 ons erythromycin base Allergy Chest Pain Verified 04/14/20 14:50 hydrocodone Allergy Chest Pain Verified 04/14/20 14:50 hydromorphone HCl Allergy Dyspnea Verified 04/14/20 14:50 [From Dilaudid] levofloxacin [From Levaquin] Allergy Hallucinati Verified 04/14/20 14:50 ons loratadine Allergy Chest Pain Verified 04/14/20 14:50 meperidine Allergy Chest Pain Verified 04/14/20 14:50 montelukast Allergy Unknown Verified 04/14/20 14:50 morphine Allergy Unknown Verified 04/14/20 14:50 Mushroom Allergy Anaphylaxis Verified 04/14/20 14:50 oxycodone HCl Allergy Hallucinati Verified 04/14/20 14:50 [From OxyContin] ons Penicillins Allergy Unknown Verified 04/14/20 14:50 pentazocine lactate Allergy "BLOOD Verified 04/14/20 14:50 [From Talwin] PRESSURE DROPPED" prednisone Allergy Unknown Verified 04/14/20 14:50 propoxyphene napsylate Allergy Chest Pain Verified 04/14/20 14:50 [From Darvocet-N 100] risperidone [From Risperdal] Allergy Rash/Hives Verified 04/14/20 14:50 tramadol HCl [From Ultram] Allergy Hallucinati Verified 04/14/20 14:50 ons ramipril AdvReac LIGHTHEADED Verified 04/14/20 14:50 NESS sulfamethoxazole AdvReac THRUSH Verified 04/14/20 14:50 [From Bactrim] trimethoprim [From Bactrim] AdvReac THRUSH Verified 04/14/20 14:50 Review of Systems ROS Statement: Those systems with pertinent positive or pertinent negative responses have been documented in the HPI. ROS Other: All systems not noted in ROS Statement are negative. Past Medical History Past Medical History: COPD, CVA/TIA, Dementia, Diabetes Mellitus, Fibromyalgia, Renal Disease, Sleep Apnea/CPAP/BIPAP, Thyroid Disorder Additional Past Medical History / Comment(s): Celiac disease. NIDDMdiet controlled. MILD CVA in 2006. Hypothyroidism. 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 CATARACT.shingles 09/28,uti History of Any Multi-Drug Resistant Organisms: None Reported Past Surgical History: Appendectomy, Cholecystectomy, Hysterectomy, Joint Replacement, Orthopedic Surgery Additional Past Surgical History / Comment(s): TOTAL KARTIK Knees. Cervical fusion; Left Shoulder; Thyroid surgery. CTR. EXC RT CATARACT 12/07/15. Past Anesthesia/Blood Transfusion Reactions: No Reported Reaction Past Psychological History: No Psychological Hx Reported Smoking Status: Never smoker Past Alcohol Use History: None Reported Past Drug Use History: None Reported - Past Family History Father Family Medical History: Cancer Additional Family Medical History / Comment(s): Father at age 79 from lung cancer. Mother Family Medical History: Diabetes Mellitus Additional Family Medical History / Comment(s): Mother at age 78 from complications from diabetes. Brother(s) Family Medical History: Myocardial Infarction ([place]) Additional Family Medical History / Comment(s): Patient has one sister that lives in [place] and she does not know any medical history. General Exam - General Exam Comments Initial Comments: Right-sided rib pain right paraspinal tenderness right chest wall tenderness Limitations: no limitations General appearance: alert, in no apparent distress Head exam: Present: atraumatic, normocephalic, normal inspection Eye exam: Present: normal appearance, PERRL, EOMI. Absent: scleral icterus, conjunctival injection, periorbital swelling ENT exam: Present: normal exam, mucous membranes moist Neck exam: Present: normal inspection. Absent: tenderness, meningismus, lymphadenopathy Respiratory exam: Present: normal lung sounds bilaterally. Absent: respiratory distress, wheezes, rales, rhonchi, stridor Cardiovascular Exam: Present: regular rate, normal rhythm, normal heart sounds. Absent: systolic murmur, diastolic murmur, rubs, gallop, clicks GI/Abdominal exam: Present: soft, normal bowel sounds. Absent: distended, tenderness, guarding, rebound, rigid Extremities exam: Present: normal inspection, full ROM, normal capillary refill. Absent: tenderness, pedal edema, joint swelling, calf tenderness Back exam: Present: normal inspection Neurological exam: Present: alert, oriented X3, CN II-XII intact Psychiatric exam: Present: normal affect, normal mood Skin exam: Present: warm, dry, intact, normal color. Absent: rash Course Vital Signs 04/14/20 14:46 Temperature 98.0 F Pulse Rate 97 Respiratory 18 Rate Blood Pressure 157/66 O2 Sat by Pulse 97 Oximetry - Reevaluation(s) Reevaluation #1: 04/14/20 16:02 Medical records reviewed Reevaluation #2: 04/14/20 16:02 Patient has significant ALLERGIES to pain medications Medical Decision Making - Radiology Data Radiology results: report reviewed (CT head and pelvis and chest x-ray with rib series negative for acute disease), image reviewed Disposition Clinical Impression: Thoracic back pain, Mid back pain Disposition: HOME SELF-CARE Condition: Good Instructions (If sedation given, give patient instructions): Acute Low Back Pain (ED) Is patient prescribed a controlled substance at d/c from ED?: No Referrals: Kaushik Love [Primary Care Provider] - 1-2 days
--- NOTE | 2020-04-14 16:04 | CT ---
EXAMINATION TYPE: CT abdomen pelvis wo con DATE OF EXAM: 04/14/2020 HISTORY: Right flank pain. CT DLP: 655 mGycm. Automated Exposure Control for Dose Reduction was Utilized. TECHNIQUE: CT scan of the abdomen and pelvis is performed without oral or IV contrast. COMPARISON: CT abdomen and pelvis October 30, 2019 FINDINGS: Within the limitations of a non-contrast study, the following observations are made. LUNG BASES: Portion visualization for coronary artery calcification and/or stent. Calcifications righ t infrahilar level partially imaged probable lymph nodes centrally. LIVER/GB: Gallbladder not seen and presumed surgically absent similar to prior. PANCREAS: Mild generalized fat replaced atrophy. SPLEEN: A few calcifications throughout the spleen consistent with product of old granulomatous disea se. ADRENALS: No significant abnormality is seen. KIDNEYS: No renal stones or hydronephrosis is present bilaterally. Mildly distended bladder. BOWEL: Suboptimal evaluation without enteric contrast. No suspicious small or large bowel dilatation. Sigmoid colonic diverticulosis without convincing CT evidence for acute diverticulitis.. GENITAL ORGANS: Uterus is surgically absent or markedly atrophic. Scattered pelvic phleboliths. LYMPH NODES: No greater than 1cm abdominal or pelvic lymph nodes are appreciated. OSSEOUS STRUCTURES: Scoliotic curvature. Moderate to severe disc space narrowing lumbosacral junction . Moderate spurring in the visualized thoracic spine. Moderate narrowing and acetabular spurring in b oth hips.. OTHER: No significant additional abnormality is seen. IMPRESSION: No renal stones or hydronephrosis is seen bilaterally. No significant new or acute findin g.
[2020-04-14] MEDS ORDERED: LIDOCAINE 5% PATCH TOPICAL STA (16:26)
--- NOTE | 2020-04-14 16:30 | XR ---
EXAMINATION TYPE: XR ribs RT w pa chest xray DATE OF EXAM: 04/14/2020 CLINICAL HISTORY: Chest and lower right rib pain. TECHNIQUE: Single frontal view of the chest is obtained. A frontal and oblique images of the right-si ded ribs. COMPARISON: Prior chest x-ray February 10, 2010. FINDINGS: There is background chronic parenchymal change without suspicious new focal air space opac ity, pleural effusion, or pneumothorax seen. The cardiac silhouette size remains within normal limit s with atherosclerotic change in the aortic knob. Multilevel spurring in the thoracic spine. Dedicated images of the right-sided ribs show no acute displaced fractures. Overlying soft tissues ar e unremarkable. IMPRESSION: 1. Chronic parenchymal changes without acute pulmonary process. 2. No acute displaced right-sided rib fracture is seen.
[2020-04-14 16:59] VITALS: BP 150/60; PULSE 88
== END 2020-04-14 16:59 | disposition home or self-care (01) ==
LOC: EC 14:30
DX: M54.6 Pain in thoracic spine (principal); E11.9 Type 2 diabetes mellitus without complications; E03.9 Hypothyroidism, unspecified; G47.30 Sleep apnea, unspecified; Z79.890 Hormone replacement therapy; Z79.899 Other long term (current) drug therapy; Z88.0 Allergy status to penicillin; Z88.1 Allergy status to other antibiotic agents; Z88.2 Allergy status to sulfonamides; Z88.5 Allergy status to narcotic agent; Z88.6 Allergy status to analgesic agent; Z88.8 Allergy status to other drugs, medicaments and biological substances; Z91.018 Allergy to other foods; Z98.1 Arthrodesis status; Z98.41 Cataract extraction status, right eye; Z99.89 Dependence on other enabling machines and devices; Z86.73 Personal history of transient ischemic attack (TIA), and cerebral infarction without residual deficits; X50.1XXA Overexertion from prolonged static or awkward postures, initial encounter
CPT/HCPCS: 74176; 99284

== ENCOUNTER 2020-04-17 00:29 | Observation (INO) | payer MEDICARE ==
[2020-04-17] MEDS ORDERED: ASPIRIN 81 MG PO STA (01:01)
--- NOTE | 2020-04-17 01:09 | ED ---
General Adult HPI - General Chief complaint: Arrhythmia/Palpitations Stated complaint: palpitations Time Seen by Provider: 04/17/20 00:33 Source: patient, EMS, RN notes reviewed, old records reviewed Mode of arrival: EMS Limitations: no limitations - History of Present Illness Initial comments: 84-year-old female patient past history of reported COPD dementia type 2 diabetes presents ED chief complaint of palpitations, chest pressure and augusto rtness of breath. Patient reports that this began approximately one hour ago when it woke her up. Patient reports of the chest pressure and palpitations lasted for about 40 minutes. Patient was that she is still having some shortness of breath. Denies any other acute complaints. - Related Data Home Medications Medication Instructions Recorded Confirmed ARIPiprazole patients own 300 mg IM Q28D 09/10/18 04/14/20 [Abilizeth Maintena Patients Own] Levothyroxine Sodium [Synthroid] 75 mcg PO DAILY 09/10/18 04/14/20 Losartan [Cozaar] 50 mg PO DAILY 05/29/19 04/14/20 Aspirin [Harper Aspirin EC] 81 mg PO DAILY 04/14/20 04/14/20 Omeprazole [PriLOSEC] 40 mg PO DAILY 04/14/20 04/14/20 hydrALAZINE HCL [Apresoline] 50 mg PO TID-W/MEALS 04/14/20 04/14/20 Allergies Allergy/AdvReac Type Severity Reaction Status Date / Time grape [Raisin] Allergy Severe Anaphylaxis Verified 04/14/20 16:17 acetaminophen Allergy Chest Pain Verified 04/14/20 16:17 [From Darvocet-N 100] atorvastatin Allergy Dyspnea Verified 04/14/20 16:17 codeine Allergy Hallucinati Verified 04/17/20 00:39 ons erythromycin base Allergy Chest Pain Verified 04/17/20 00:39 hydrocodone Allergy Chest Pain Verified 04/17/20 00:39 hydromorphone HCl Allergy Dyspnea Verified 04/17/20 00:39 [From Dilaudid] levofloxacin [From Levaquin] Allergy Hallucinati Verified 04/17/20 00:39 ons loratadine Allergy Chest Pain Verified 04/17/20 00:39 meperidine Allergy Chest Pain Verified 04/17/20 00:39 montelukast Allergy Unknown Verified 04/17/20 00:39 morphine Allergy Unknown Verified 04/17/20 00:39 Mushroom Allergy Anaphylaxis Verified 04/17/20 00:39 oxycodone HCl Allergy Hallucinati Verified 04/17/20 00:39 [From OxyContin] ons Penicillins Allergy Unknown Verified 04/17/20 00:39 pentazocine lactate Allergy "BLOOD Verified 04/17/20 00:39 [From Talwin] PRESSURE DROPPED" prednisone Allergy Unknown Verified 04/17/20 00:39 propoxyphene napsylate Allergy Chest Pain Verified 04/17/20 00:39 [From Darvocet-N 100] risperidone [From Risperdal] Allergy Rash/Hives Verified 04/17/20 00:39 tramadol HCl [From Ultram] Allergy Hallucinati Verified 04/17/20 00:39 ons ramipril AdvReac LIGHTHEADED Verified 04/17/20 00:39 NESS sulfamethoxazole AdvReac THRUSH Verified 04/17/20 00:39 [From Bactrim] trimethoprim [From Bactrim] AdvReac THRUSH Verified 04/17/20 00:39 Review of Systems ROS Statement: Those systems with pertinent positive or pertinent negative responses have been documented in the HPI. ROS Other: All systems not noted in ROS Statement are negative. Past Medical History Past Medical History: COPD, CVA/TIA, Dementia, Diabetes Mellitus, Fibromyalgia, Renal Disease, Sleep Apnea/CPAP/BIPAP, Thyroid Disorder Additional Past Medical History / Comment(s): Celiac disease. NIDDMdiet controlled. MILD CVA in 2006. Hypothyroidism. 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 CATARACT.shingles 09/28,uti History of Any Multi-Drug Resistant Organisms: None Reported Past Surgical History: Appendectomy, Cholecystectomy, Hysterectomy, Joint Replacement, Orthopedic Surgery Additional Past Surgical History / Comment(s): TOTAL KARTIK Knees. Cervical fusion; Left Shoulder; Thyroid surgery. CTR. EXC RT CATARACT 12/07/15. Past Anesthesia/Blood Transfusion Reactions: No Reported Reaction Past Psychological History: No Psychological Hx Reported Smoking Status: Never smoker Past Alcohol Use History: None Reported Past Drug Use History: None Reported - Past Family History Father Family Medical History: Cancer Additional Family Medical History / Comment(s): Father at age 79 from lung cancer. Mother Family Medical History: Diabetes Mellitus Additional Family Medical History / Comment(s): Mother at age 78 from complications from diabetes. Brother(s) Family Medical History: Myocardial Infarction ([place]) Additional Family Medical History / Comment(s): Patient has one sister that lives in [place] and she does not know any medical history. General Exam - General Exam Comments Initial Comments: Constitutional: NAD, AOX3, Pt has pleasant affect. HEENT: NC/AT, trachea midline, neck supple, no lymphadenopathy. Mucous membranes moist. Eyes PERRLA, EOM intact. There is no scleral icterus. No pallor noted. Cardiopulmonary: RRR, no murmurs, rubs or gallops, no JVD noted. Lungs CTAB in anterior and posterior sagastume. No peripheral edema. Abdominal exam: Abdomen soft and non-distended. Abdomen non-tender to palpation in all 4 quadrants. Bowel sounds active in LLQ. No hepatosplenomegaly. No ecchymosis Neuro: CN II-XII grossly intact. No raccon eyes. MSK: No posterior calf tenderness bilaterally, homans sign negative bilaterally. Posterior tibialis and radial pulse +2 bilaterally. Sensation intact in upper and lower extremities. Full active ROM in upper and lower extremities. Limitations: no limitations Course Vital Signs 04/17/20 00:30 Temperature 97.1 F L Pulse Rate 81 Respiratory 18 Rate Blood Pressure 184/77 O2 Sat by Pulse 96 Oximetry Medical Decision Making - Medical Decision Making 84-year-old female patient presents a chief complaint of chest pain shortness of breath or palpitations when she was woken from sleep about an hour before presentation to Hospital. Upon evaluation patient denies any current chest pain or shortness of breath port she is having some heart palpitations still. The monitor is reading normal sinus rhythm. EKG is nonischemic. Laboratory investigations are overall unremarkable. With exception of d-dimer being elevated. Due to this a CT is performed this did not display evidence of pulmonary embolism. Minimal pulmonary interstitial density. Patient will be admitted for chest pain 2 troponins and further evaluation. Case discussed with Dr. Rogers. - Lab Data Result diagrams: 04/17/20 01:05 04/17/20 01:05 Lab Results 04/17/20 04/17/20 04/17/20 Range/Units 01:05 01:05 01:05 WBC 7.3 (3.8-10.6) k/uL RBC 4.85 (3.80-5.40) m/uL Hgb 13.7 (11.4-16.0) gm/dL Hct 42.2 (34.0-46.0) % MCV 87.1 (80.0-100.0) fL MCH 28.2 (25.0-35.0) pg MCHC 32.4 (31.0-37.0) g/dL RDW 14.4 (11.5-15.5) % Plt Count 213 (150-450) k/uL Neutrophils % 66 % Lymphocytes % 21 % Monocytes % 5 % Eosinophils % 5 % Basophils % 1 % Neutrophils # 4.8 (1.3-7.7) k/uL Lymphocytes # 1.5 (1.0-4.8) k/uL Monocytes # 0.4 (0-1.0) k/uL Eosinophils # 0.3 (0-0.7) k/uL Basophils # 0.1 (0-0.2) k/uL PT 9.5 (9.0-12.0) sec INR 0.9 (<1.2) APTT 23.8 (22.0-30.0) sec D-Dimer 0.93 H (<0.60) mg/L FEU Sodium 138 (137-145) mmol/L Potassium 4.3 (3.5-5.1) mmol/L Chloride 107 (98-107) mmol/L Carbon Dioxide 19 L (22-30) mmol/L Anion Gap 12 mmol/L BUN 17 (7-17) mg/dL Creatinine 0.93 (0.52-1.04) mg/dL Est GFR (CKD-EPI)AfAm 67 (>60 ml/min/1.73 sqM) Est GFR (CKD-EPI)NonAf 58 (>60 ml/min/1.73 sqM) Glucose 156 H (74-99) mg/dL Calcium 8.9 (8.4-10.2) mg/dL Magnesium 2.1 (1.6-2.3) mg/dL Total Bilirubin 0.3 (0.2-1.3) mg/dL AST 20 (14-36) U/L ALT 15 (4-34) U/L Alkaline Phosphatase 108 (38-126) U/L Troponin I (0.000-0.034) ng/mL NT-Pro-B Natriuret Pep pg/mL Total Protein 6.6 (6.3-8.2) g/dL Albumin 3.7 (3.5-5.0) g/dL 04/17/20 04/17/20 Range/Units 01:05 01:05 WBC (3.8-10.6) k/uL RBC (3.80-5.40) m/uL Hgb (11.4-16.0) gm/dL Hct (34.0-46.0) % MCV (80.0-100.0) fL MCH (25.0-35.0) pg MCHC (31.0-37.0) g/dL RDW (11.5-15.5) % Plt Count (150-450) k/uL Neutrophils % % Lymphocytes % % Monocytes % % Eosinophils % % Basophils % % Neutrophils # (1.3-7.7) k/uL Lymphocytes # (1.0-4.8) k/uL Monocytes # (0-1.0) k/uL Eosinophils # (0-0.7) k/uL Basophils # (0-0.2) k/uL PT (9.0-12.0) sec INR (<1.2) APTT (22.0-30.0) sec D-Dimer (<0.60) mg/L FEU Sodium (137-145) mmol/L Potassium (3.5-5.1) mmol/L Chloride (98-107) mmol/L Carbon Dioxide (22-30) mmol/L Anion Gap mmol/L BUN (7-17) mg/dL Creatinine (0.52-1.04) mg/dL Est GFR (CKD-EPI)AfAm (>60 ml/min/1.73 sqM) Est GFR (CKD-EPI)NonAf (>60 ml/min/1.73 sqM) Glucose (74-99) mg/dL Calcium (8.4-10.2) mg/dL Magnesium (1.6-2.3) mg/dL Total Bilirubin (0.2-1.3) mg/dL AST (14-36) U/L ALT (4-34) U/L Alkaline Phosphatase (38-126) U/L Troponin I <0.012 (0.000-0.034) ng/mL NT-Pro-B Natriuret Pep 433 pg/mL Total Protein (6.3-8.2) g/dL Albumin (3.5-5.0) g/dL Disposition Clinical Impression: Chest pain, Palpitations Disposition: ADMITTED IP TO THIS HOSP Condition: Serious Is patient prescribed a controlled substance at d/c from ED?: No Referrals: Kaushik Love [Primary Care Provider] - 1-2 days
[2020-04-17 01:20] LABS: Albumin 3.7 g/dL (3.5-5.0); Calcium 8.9 mg/dL (8.4-10.2); Magnesium 2.1 mg/dL (1.6-2.3); Potassium 4.3 mmol/L (3.5-5.1); Total Bilirubin 0.3 mg/dL (0.2-1.3); Total Protein 6.6 g/dL (6.3-8.2)
[2020-04-17 01:26] LABS: INR 0.9 (<1.2); Partial Thromboplastin Time 23.8 sec (22.0-30.0); Prothrombin Time 9.5 sec (9.0-12.0)
[2020-04-17 01:28] LABS: D-Dimer 0.93 mg/L FEU (<0.60)
--- NOTE | 2020-04-17 01:28 | XR ---
EXAMINATION TYPE: XR chest 2V DATE OF EXAM: 04/17/2020 COMPARISON: 04/14/2020 HISTORY: Rib pain TECHNIQUE: 2 views FINDINGS: Heart is normal. Lungs are clear of consolidation. Costophrenic angles are clear. Bony thor ax is intact. There are chest leads. IMPRESSION: No active cardiopulmonary disease. Normal heart. No change.
[2020-04-17 01:30] LABS: Basophils # (A) 0.1 k/uL (0-0.2); Basophils % (A) 1 %; Eosinophils # (A) 0.3 k/uL (0-0.7); Eosinophils % (A) 5 %; HCT 42.2 % (34.0-46.0); HGB 13.7 gm/dL (11.4-16.0); Lymphocytes # (A) 1.5 k/uL (1.0-4.8); Lymphocytes % (A) 21 %; MCH 28.2 pg (25.0-35.0); MCHC 32.4 g/dL (31.0-37.0); MCV 87.1 fL (80.0-100.0); Mean Platelet Volume 7.8; Monocytes # (A) 0.4 k/uL (0-1.0); Monocytes % (A) 5 %; Neutrophils # (A) 4.8 k/uL (1.3-7.7); Neutrophils % (A) 66 %; Platelet Count 213 k/uL (150-450); RBC 4.85 m/uL (3.80-5.40); RDW 14.4 % (11.5-15.5); WBC 7.3 k/uL (3.8-10.6)
[2020-04-17] MEDS ORDERED: SODIUM CHLORIDE 0.9% 500 ML 500 ML IV ONE (02:07)
--- NOTE | 2020-04-17 02:17 | CT ---
EXAMINATION TYPE: CT chest angio for PE DATE OF EXAM: 04/17/2020 COMPARISON: None HISTORY: R/O PE Chest pain CT DLP: 508.40 mGycm Automated exposure control for dose reduction was used. CONTRAST: Performed with IV Contrast, patient injected with 80 mL of Isovue 370. Multiple axial sections were obtained from the thoracic inlet to the diaphragm with IV contrast and 3 -D post processed images. There is no mediastinal adenopathy. Thoracic aorta is intact without evidence of aneurysm or dissecti on. There are no hilar masses. Heart size is fairly normal. There is no pericardial effusion. The arlin gs are clear of consolidation. There is no evidence of a pulmonary mass. There is minimal interstitia l density in the posterior lung sagastume. There is minimal subsegmental atelectasis in the lingula left upper lobe. The bony thorax is intact. There is spurring of the thoracic spine. Sternum is intact. The ribs appea r intact. There is normal contrast opacification of the pulmonary arteries. There are no filling defects. IMPRESSION: No evidence of pulmonary embolism. Minimal pulmonary interstitial density. No suspicious pulmonary mass. Normal heart.
[2020-04-17] MEDS ORDERED: NALOXONE 0.4 MG/ML 1 ML VIAL IV PRN (02:46)
[2020-04-17] MEDS ORDERED: NITROGLYCERIN SL TABS 0.4 MG TAB SUBLINGUAL PRN (02:50)
[2020-04-17] MEDS ORDERED: 0.9% NACL WITH KCL 20 MEQ/L 1,000 ML IV SCH (03:00)
[2020-04-17] MEDS: SODIUM CHLORIDE 0.9% 1,000 ML IV SCH ×2 (04:29→16:59)
[2020-04-17] MEDS: hydrALAZINE HCL 50 MG TAB PO SCH ×3 (07:12→16:56)
--- NOTE | 2020-04-17 07:16 | P.HPIM ---
History of Present Illness H&P Date: 04/17/20 Chief Complaint: chest pain 84 year old female with hypertension , hypothyroid, borderline diabetes patient comes in with chest pain , she reports pain started suddenly while sleeping about an hour before arrival, central chest pain , more of a tightness, with some difficulty breathing, 5/10 in severity, associated with some sweating . no nausea no dizziness. she also felt her heart was racing, all this lasted for about 40 minutes and started to feel better. she reports occasional similar episodes over the past few weeks with activity and improves with resting . she reports remote history of palpitations but not sure of what type. she denies any recent travel or hospitalization . denies any fever , chills, or URI symptoms in the ED, EKG showed NSR, troponins negative. d dimer elevated and patient had CTA of the chest , showed no acute PE Review of Systems Pertinent positives as noted in HPI. All other systems were reviewed and are negative Past Medical History Past Medical History: COPD, CVA/TIA, Dementia, Diabetes Mellitus, Fibromyalgia, Renal Disease, Sleep Apnea/CPAP/BIPAP, Thyroid Disorder Additional Past Medical History / Comment(s): Celiac disease. NIDDMdiet controlled. MILD CVA in 2006. Hypothyroidism. 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 CATARACT.shingles 09/28,uti History of Any Multi-Drug Resistant Organisms: None Reported Past Surgical History: Appendectomy, Cholecystectomy, Hysterectomy, Joint Re placement, Orthopedic Surgery Additional Past Surgical History / Comment(s): TOTAL KARTIK Knees. Cervical fusion; Left Shoulder; Thyroid surgery. CTR. EXC RT CATARACT 12/07/15. Past Anesthesia/Blood Transfusion Reactions: No Reported Reaction Past Psychological History: No Psychological Hx Reported Smoking Status: Never smoker Past Alcohol Use History: None Reported Additional Past Alcohol Use History / Comment(s): Her son occasionally stays with her according to the patient. Past Drug Use History: None Reported - Past Family History Father Family Medical History: Cancer Additional Family Medical History / Comment(s): Father at age 79 from lung cancer. Mother Family Medical History: Diabetes Mellitus Additional Family Medical History / Comment(s): Mother at age 78 from complications from diabetes. Brother(s) Family Medical History: Myocardial Infarction ([place]) Additional Family Medical History / Comment(s): Patient has one sister that lives in [place] and she does not know any medical history. Medications and Allergies Home Medications Medication Instructions Recorded Confirmed Type ARIPiprazole patients own 300 mg IM Q28D 09/10/18 04/14/20 History [Kameron Andersen Patients Own] Levothyroxine Sodium [Synthroid] 75 mcg PO DAILY 09/10/18 04/14/20 History Losartan [Cozaar] 50 mg PO DAILY 05/29/19 04/14/20 History Aspirin [[place] Aspirin EC] 81 mg PO DAILY 04/14/20 04/14/20 History Omeprazole [PriLOSEC] 40 mg PO DAILY 04/14/20 04/14/20 History hydrALAZINE HCL [Apresoline] 50 mg PO TID-W/MEALS 04/14/20 04/14/20 History Allergies Allergy/AdvReac Type Severity Reaction Status Date / Time grape [Raisin] Allergy Severe Anaphylaxis Verified 04/14/20 16:17 acetaminophen Allergy Chest Pain Verified 04/14/20 16:17 [From Darvocet-N 100] atorvastatin Allergy Dyspnea Verified 04/14/20 16:17 codeine Allergy Hallucinati Verified 04/17/20 00:39 ons erythromycin base Allergy Chest Pain Verified 04/17/20 00:39 hydrocodone Allergy Chest Pain Verified 04/17/20 00:39 hydromorphone HCl Allergy Dyspnea Verified 04/17/20 00:39 [From Dilaudid] levofloxacin [From Levaquin] Allergy Hallucinati Verified 04/17/20 00:39 ons loratadine Allergy Chest Pain Verified 04/17/20 00:39 meperidine Allergy Chest Pain Verified 04/17/20 00:39 montelukast Allergy Unknown Verified 04/17/20 00:39 morphine Allergy Unknown Verified 04/17/20 00:39 Mushroom Allergy Anaphylaxis Verified 04/17/20 00:39 oxycodone HCl Allergy Hallucinati Verified 04/17/20 00:39 [From OxyContin] ons Penicillins Allergy Unknown Verified 04/17/20 00:39 pentazocine lactate Allergy "BLOOD Verified 04/17/20 00:39 [From Talwin] PRESSURE DROPPED" prednisone Allergy Unknown Verified 04/17/20 00:39 propoxyphene napsylate Allergy Chest Pain Verified 04/17/20 00:39 [From Darvocet-N 100] risperidone [From Risperdal] Allergy Rash/Hives Verified 04/17/20 00:39 tramadol HCl [From Ultram] Allergy Hallucinati Verified 04/17/20 00:39 ons ramipril AdvReac LIGHTHEADED Verified 04/17/20 00:39 NESS sulfamethoxazole AdvReac THRUSH Verified 04/17/20 00:39 [From Bactrim] trimethoprim [From Bactrim] AdvReac THRUSH Verified 04/17/20 00:39 Physical Exam Vitals: Vital Signs Temp Pulse Pulse Resp BP BP Pulse Ox 04/17/20 04:23 97.6 F 80 17 185/74 97 04/17/20 04:02 97.9 F 80 18 146/60 94 L 04/17/20 04:00 77 16 151/63 97 04/17/20 03:30 69 19 172/73 96 04/17/20 03:00 69 17 167/73 97 04/17/20 02:00 67 18 184/77 96 04/17/20 00:30 97.1 F L 81 18 184/77 96 Intake and Output 04/16/20 04/16/20 04/17/20 14:59 22:59 06:59 Intake Total 0 Balance 0 Intake: Oral 0 Other: # Voids 0 Weight 77.111 kg Constitutional: No acute distress, conversant, pleasant Eyes: Anicteric sclerae, moist conjunctiva, no lid-lag Pupils equal round reactive to light ENMT: NC/AT Oropharynx clear, no erythema, or exudates Neck: Supple, FROM, no masses, or JVD No carotid bruits No thyromegaly Lungs: Clear to auscultation Clear to percussion Normal respiratory effort, no accessory muscle use Cardiovascular: Heart regular in rate and rhythm, No murmurs, gallops, or rubs No peripheral edema Abdominal: Soft Nontender, no guarding, rebound or rigidity Abdomen moving with respiration Normoactive bowel sounds No hepatomegaly, No splenomegaly No palpable mass No abdominal wall hernia noted Skin: Normal temperature, tone, texture, turgor No induration No subcutaneous nodules No rash, lesions No ulcers Extremities: No digital cyanosis No clubbing Pedal pulses intact and symmetrical Radial pulses intact and symmetrical No calf tenderness Psychiatric: Alert and oriented to person, place and time Appropriate affect fair judgement Neuro Muscles Strength 5/5 in all 4 extremities Sensation to light touch grossly present throughout Cranial nerves II-XII grossly intact No focal sensory deficits Lymphatics: no palpable cervical or supraclavicular , or inguinal lymph nodes Results CBC & Chem 7: 04/17/20 01:05 04/17/20 01:05 Labs: Abnormal Lab Results - Last 24 Hours (Table) 04/17/20 04/17/20 Range/Units 01:05 01:05 D-Dimer 0.93 H (<0.60) mg/L FEU Carbon Dioxide 19 L (22-30) mmol/L Glucose 156 H (74-99) mg/dL Assessment and Plan Assessment: atypical chest pain , rule out ACS aspirin , nitro trend troponin monitoring analyst CTA of chest no acute PE ( had elevated trop) pain control cardiology eval IVF hydration with NS 0.9% chronic conditions hypothyroid hypertension h/o CAD , CVA resume home meds verify home meds CODE STATUS:full code DVT prophylaxis: heparin sc tid Discussed with: Patient, ER, Anticipated length of stay < than [address]: home A total of 75 minutes was spent on the care of this complex patient more than 50% of the time was spent in counseling and care coordination.
[2020-04-17] MEDS: LOSARTAN 50 MG TAB PO SCH (08:50)
--- NOTE | 2020-04-17 09:52 | P.CRDCN ---
History of Present Illness Consult date: 04/17/20 Chief complaint: Chest pain History of present illness: This is a very pleasant 82-year-old female patient with a past medical history significant for hypertension as well as underlying dementia presented to the emergency department complaining of chest discomfort. She was in her usual state of health when she was sleeping and she woke up complaining of chest discomfort. She described the discomfort as sharp, in the central chest, without any radiation to the arms or neck or shoulders, and without any associated symptoms of shortness of breath or sweating or dizziness or syncope. No feeling of heart racing or heart fluttering. Because the pain continues about 5/10 in intensity she decided to come to the emergency department. She d id not have any fever or chills and no cough. The EKG showed sinus rhythm without any significant ST or T-wave abnormalities. She underwent 3 sets of cardiac enzymes and these came in to be also unremarkable. No prior history of coronary artery disease or coronary revascularization. The patient is not quite sure if she does follow with any [employer] on a regular basis. Currently she is chest pain-free. Past Medical History Past Medical History: COPD, CVA/TIA, Dementia, Diabetes Mellitus, Fibromyalgia, Renal Disease, Sleep Apnea/CPAP/BIPAP, Thyroid Disorder Additional Past Medical History / Comment(s): Celiac disease. NIDDMdiet controlled. MILD CVA in 2006. Hypothyroidism. 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 CATARACT.shingles 09/28,uti History of Any Multi-Drug Resistant Organisms: None Reported Past Surgical History: Appendectomy, Cholecystectomy, Hysterectomy, Joint Replac ement, Orthopedic Surgery Additional Past Surgical History / Comment(s): TOTAL KARTIK Knees. Cervical fusion; Left Shoulder; Thyroid surgery. CTR. EXC RT CATARACT 12/07/15. Past Anesthesia/Blood Transfusion Reactions: No Reported Reaction Past Psychological History: No Psychological Hx Reported Smoking Status: Never smoker Past Alcohol Use History: None Reported Additional Past Alcohol Use History / Comment(s): Her son occasionally stays with her according to the patient. Past Drug Use History: None Reported - Past Family History Father Family Medical History: Cancer Additional Family Medical History / Comment(s): Father at age 79 from lung cancer. Mother Family Medical History: Diabetes Mellitus Additional Family Medical History / Comment(s): Mother at age 78 from co mplications from diabetes. Brother(s) Family Medical History: Myocardial Infarction ([place]) Additional Family Medical History / Comment(s): Patient has one sister that lives in [place] and she does not know any medical history. Medications and Allergies Home Medications Medication Instructions Recorded Confirmed Type ARIPiprazole patients own 300 mg IM Q28D 09/10/18 04/14/20 History [Kameron [place] Patients Own] Levothyroxine Sodium [Synthroid] 75 mcg PO DAILY 09/10/18 04/14/20 History Losartan [Cozaar] 50 mg PO DAILY 05/29/19 04/14/20 History Aspirin [[place] Aspirin EC] 81 mg PO DAILY 04/14/20 04/14/20 History Omeprazole [PriLOSEC] 40 mg PO DAILY 04/14/20 04/14/20 History hydrALAZINE HCL [Apresoline] 50 mg PO TID-W/MEALS 04/14/20 04/14/20 History Allergies Allergy/AdvReac Type Severity Reaction Status Date / Time grape [Raisin] Allergy Severe Anaphylaxis Verified 04/14/20 16:17 acetaminophen Allergy Chest Pain Verified 04/14/20 16:17 [From Darvocet-N 100] atorvastatin Allergy Dyspnea Verified 04/14/20 16:17 codeine Allergy Hallucinati Verified 04/17/20 00:39 ons erythromycin base Allergy Chest Pain Verified 04/17/20 00:39 hydrocodone Allergy Chest Pain Verified 04/17/20 00:39 hydromorphone HCl Allergy Dyspnea Verified 04/17/20 00:39 [From Dilaudid] levofloxacin [From Levaquin] Allergy Hallucinati Verified 04/17/20 00:39 ons loratadine Allergy Chest Pain Verified 04/17/20 00:39 meperidine Allergy Chest Pain Verified 04/17/20 00:39 montelukast Allergy Unknown Verified 04/17/20 00:39 morphine Allergy Unknown Verified 04/17/20 00:39 Mushroom Allergy Anaphylaxis Verified 04/17/20 00:39 oxycodone HCl Allergy Hallucinati Verified 04/17/20 00:39 [From OxyContin] ons Penicillins Allergy Unknown Verified 04/17/20 00:39 pentazocine lactate Allergy "BLOOD Verified 04/17/20 00:39 [From Talwin] PRESSURE DROPPED" prednisone Allergy Unknown Verified 04/17/20 00:39 propoxyphene napsylate Allergy Chest Pain Verified 04/17/20 00:39 [From Darvocet-N 100] risperidone [From Risperdal] Allergy Rash/Hives Verified 04/17/20 00:39 tramadol HCl [From Ultram] Allergy Hallucinati Verified 04/17/20 00:39 ons ramipril AdvReac LIGHTHEADED Verified 04/17/20 00:39 NESS sulfamethoxazole AdvReac THRUSH Verified 04/17/20 00:39 [From Bactrim] trimethoprim [From Bactrim] AdvReac THRUSH Verified 04/17/20 00:39 Physical Exam Vitals: Vital Signs Temp Pulse Pulse Resp BP BP Pulse Ox 04/17/20 08:04 97.5 F L 68 16 124/66 04/17/20 04:23 97.6 F 80 17 185/74 97 04/17/20 04:02 97.9 F 80 18 146/60 94 L 04/17/20 04:00 77 16 151/63 97 04/17/20 03:30 69 19 172/73 96 04/17/20 03:00 69 17 167/73 97 04/17/20 02:00 67 18 184/77 96 04/17/20 00:30 97.1 F L 81 18 184/77 96 Intake and Output 04/16/20 04/17/20 04/17/20 22:59 06:59 14:59 Intake Total 0 Balance 0 Intake: Oral 0 Other: # Voids 0 Weight 77.111 kg - Constitutional General appearance: no acute distress - Respiratory Respiratory: bilateral: CTA - Cardiovascular Rhythm: regular Heart sounds: normal: S1, S2 Abnormal Heart Sounds: systolic murmur Results 04/17/20 01:05 04/17/20 01:05 Cardiac Enzymes 04/17/20 04/17/20 04/17/20 Range/Units 01:05 01:05 04:55 AST 20 (14-36) U/L Troponin I <0.012 <0.012 (0.000-0.034) ng/mL 04/17/20 Range/Units 06:39 AST (14-36) U/L Troponin I <0.012 (0.000-0.034) ng/mL Coagulation 04/17/20 Range/Units 01:05 PT 9.5 (9.0-12.0) sec APTT 23.8 (22.0-30.0) sec CBC 04/17/20 Range/Units 01:05 WBC 7.3 (3.8-10.6) k/uL RBC 4.85 (3.80-5.40) m/uL Hgb 13.7 (11.4-16.0) gm/dL Hct 42.2 (34.0-46.0) % Plt Count 213 (150-450) k/uL Comprehensive Metabolic Panel 04/17/20 Range/Units 01:05 Sodium 138 (137-145) mmol/L Potassium 4.3 (3.5-5.1) mmol/L Chloride 107 (98-107) mmol/L Carbon Dioxide 19 L (22-30) mmol/L BUN 17 (7-17) mg/dL Creatinine 0.93 (0.52-1.04) mg/dL Glucose 156 H (74-99) mg/dL Calcium 8.9 (8.4-10.2) mg/dL AST 20 (14-36) U/L ALT 15 (4-34) U/L Alkaline Phosphatase 108 (38-126) U/L Total Protein 6.6 (6.3-8.2) g/dL Albumin 3.7 (3.5-5.0) g/dL Current Medications Generic Name Dose Route Start Last Admin Trade Name Freq PRN Reason Stop Dose Admin Aspirin 325 mg 04/18/20 09:00 Aspirin PO DAILY VANIA Hydralazine HCl 50 mg 04/17/20 07:30 04/17/20 07:12 Apresoline PO 50 mg TID-W/MEALS VANIA Administration Sodium Chloride 1,000 mls @ 75 mls/hr 04/17/20 03:15 04/17/20 04:29 Saline 0.9% IV 75 mls/hr .[id number] VANIA Administration Losartan Potassium 50 mg 04/17/20 09:00 04/17/20 08:50 Cozaar PO 50 mg DAILY VANIA Administration Naloxone HCl 0.2 mg 04/17/20 02:46 Narcan IV Q2M PRN Opioid Reversal Nitroglycerin 0.4 mg 04/17/20 02:50 Nitrostat SUBLINGUAL Q5M PRN Chest Pain Intake and Output 08/03/2904/17/20 04/17/20 22:59 06:59 14:59 Intake Total 0 Balance 0 Intake: Oral 0 Other: # Voids 0 Weight 77.111 kg 04/17/20 01:05 04/17/20 01:05 Assessment and Plan Assessment: Assessment #1 chest discomfort #2 hypertension #3 mild underlying dementia Plan #1 acute coronary event was ruled out #2 PE was ruled out #3 aortic dissection was ruled out #4 obtaining the previous medical records from the office #5 add oral nitrates the current medical regimen #6 follow up on the echocardiogram Thank you for allowing us participate in her care
[2020-04-17] MEDS ORDERED: ISOSORBIDE MONONITRATE ER 30 MG TAB.ER.24H PO STA (10:12)
[2020-04-18 04:07] VITALS: RESP 16
[2020-04-18] MEDS: SODIUM CHLORIDE 0.9% 1,000 ML IV SCH (04:26)
[2020-04-18] MEDS: hydrALAZINE HCL 50 MG TAB PO SCH ×2 (06:38→11:54)
[2020-04-18 08:16] VITALS: BP 150/66; PULSE 84; TEMP 97.9
[2020-04-18 08:24] LABS: Calcium 8.5 mg/dL (8.4-10.2); Potassium 4.5 mmol/L (3.5-5.1)
--- NOTE | 2020-04-18 08:38 | P.DS ---
Providers Date of admission: 04/17/20 03:46 Expected date of discharge: 04/18/20 Attending physician: Daniel Parham MD Consults: 04/17/20 02:46 Consult Physician Stat Consulting Provider: Vasquez Chavez Consult Reason/Comments: chest pain, palpitations Do you want consulting provider notified?: Yes Primary care physician: Kaushik [facility] Course: 84-year-old female with PMH of hypertension, hypothyroidism initially presented to the ED for chest pain that suddenly woke her up. She reported the pain as chest tightness associated with some shortness of breath, diaphoresis and palpitations. She reported that the pain lasted for about 40 minutes until she started to feel better. Patient reports similar episodes over the past couple of months that could occur at rest and with exertion. In the ED, blood pressure is elevated at 184/77. Her vital signs were otherwise stable. CBC was unremarkable. Her d-dimer was positive but CTA chest ruled out PE. CMP showed bicarbonate of 19. BNP was 433. Troponin was less than 0.0123 with EKG showing normal sinus rhythm with T-wave abnormalities. Acute coronary syndrome was ruled out. Cardiology was consulted and recommended adding Imdur to her medication regimen. Cardiology also recommended echocardiogram. Echocardiogram was pending at the time of this note. Patient was seen and examined this morning. No acute events overnight. She reports complete resolution of her chest pain. She denies any chest pain, shortness breath or palpitations. No nausea or vomiting. No dizziness, fever or chills. General: [non toxic], [no distress], [appears at stated age] Derm: [warm], [dry] Head: [atraumatic], [normocephalic], [symmetric] Eyes: [EOMI], [no lid lag], [anicteric sclera] Mouth: [no lip lesion], [mucus membranes moist] Cardiovascular: [S1S2 reg], [systolic murmur], [positive DP pulse bilateral], Lungs: [CTA bilateral], [no rhonchi, no rales] , [no accessory muscle use] Abdominal: [soft], [ nontender to palpation], [no guarding], [no appreciable organomegaly] Ext: [no gross muscle atrophy], [no edema], [no contractures] Neuro: [no focal neuro deficits] Psych: [Alert], [oriented], [appropriate affect] chest pain hypothyroidism hypertension history of CVA Acute coronary syndrome has been ruled out. CTA chest ruled out PE and aortic dissection. Cardiology is consulted and recommended addition of Imdur. Echocardiogram is pending. Patient is on athletic monitor. Patient is not on statin due to ALLERGY. Continue aspirin. Follow cardiology recommendations. Restart Synthroid. BP 151/63. Continue hydralazine and Imdur. Monitor vitals, adjust medications if necessary. Continue aspirin. Patient is not on statin due to ALLERGY. [Patient admitted for chest pain. ACS ruled out. Cardiology on board. Echocardiogram pending. Possible DC home today pending results of echo and cardiology clearance.] Pertinent Studies: Chest x-ray, chest CTA, echocardiogram Patient Condition at Discharge: Stable Plan - Discharge Summary Discharge Rx Participant: Yes New Discharge Prescriptions: Continue ARIPiprazole patients own [Abilify Maintena Patients Own] 300 mg IM Q28D Levothyroxine Sodium [Synthroid] 75 mcg PO DAILY Losartan [Cozaar] 50 mg PO DAILY Omeprazole [PriLOSEC] 40 mg PO DAILY hydrALAZINE HCL [Apresoline] 50 mg PO TID-W/MEALS Aspirin [[place] Aspirin EC] 81 mg PO DAILY Methyl Salicylate/Menthol [Salonpas Patch] 1 patch TOPICAL Q8H PRN PRN Reason: Pain Discharge Medication List ARIPiprazole patients own [Abilify Maint[place] Patients Own] 300 mg IM Q28D 09/10 [History] Levothyroxine Sodium [Synthroid] 75 mcg PO DAILY 09/10/18 [History] Losartan [Cozaar] 50 mg PO DAILY 05/29/19 [History] Aspirin [[place] Aspirin EC] 81 mg PO DAILY 04/14/20 [History] Omeprazole [PriLOSEC] 40 mg PO DAILY 04/14/20 [History] hydrALAZINE HCL [Apresoline] 50 mg PO TID-W/MEALS 04/14/20 [History] Methyl Salicylate/Menthol [Salonpas Patch] 1 patch TOPICAL Q8H PRN 04/17/20 [History] Follow up Appointment(s)/Referral(s): Kaushik Love [Primary Care Provider] - 1-2 days Vasquez Chavez MD [STAFF PHYSICIAN] - 1 Week Activity/Diet/Wound Care/Special Instructions: Diet: Cardiac Follow-up PCP within 3 days of discharge. Follow-up with cardiology within 1 week of discharge. Take all medications as advised. Come back to the ED or call 911 for worsening chest pain, shortness breath, palpitations or dizziness. Discharge Disposition: HOME SELF-CARE
[2020-04-18] MEDS ORDERED: LEVOTHYROXINE 75 MCG TAB PO SCH (09:00)
[2020-04-18] MEDS ORDERED: ISOSORBIDE MONONITRATE ER 30 MG TAB.ER.24H PO SCH (09:00)
[2020-04-18] MEDS ORDERED: ASPIRIN 325 MG TAB PO SCH (09:00)
[2020-04-18] MEDS: LOSARTAN 50 MG TAB PO SCH (09:09)
--- NOTE | 2020-04-18 11:15 | P.PN ---
Subjective Progress Note Date: 04/18/20 Principal diagnosis: Chest pain This is a very pleasant 82-year-old female patient with a past medical history significant for hypertension as well as underlying dementia presented to the emergency department complaining of chest discomfort. She was in her usual state of health when she was sleeping and she woke up complaining of chest discomfort. She described the discomfort as sharp, in the central chest, without any radiation to the arms or neck or shoulders, and without any associated symptoms of shortness of breath or sweating or dizziness or syncope. No feeling of heart racing or heart fluttering. Because the pain continues about 5/10 in intensity she decided to come to the emergency department. She did not have any fever or chills and no cough. The EKG showed sinus rhythm without any significant ST or T-wave abnormalities. She underwent 3 sets of cardiac enzymes and these came in to be also unremarkable. No prior history of coronary artery disease or coronary revascularization. The patient was seen today April [id number]. She has been asymptomatic from a cardiovascular standpoint overview. From the cardiac standpoint she can be discharged home. Objective - Vital Signs Vital signs: Vital Signs Temp 97.9 F 04/18/20 08:14 Pulse 84 04/18/20 08:14 Resp 16 04/18/20 08:14 BP 150/66 04/18/20 08:14 Pulse Ox 96 04/18/20 08:14 Intake & Output 04/17/20 04/18/20 04/18/20 18:59 06:59 18:59 Intake Total 765 120 Balance 765 120 Intake: Intake, IV Titration 525 Amount Sodium Chloride 0.9% 1, 525 000 ml @ 75 mls/hr IV . [id number] [facility] Rx#:[id number] Oral 240 120 Other: Voiding Method Toilet # Voids 1 1 - Constitutional General appearance: Present: no acute distress - Respiratory Respiratory: bilateral: CTA - Cardiovascular Rhythm: regular Heart sounds: normal: S1, S2 - Labs CBC & Chem 7: 04/17/20 01:05 04/18/20 07:26 Labs: Abnormal Lab Results - Last 24 Hours (Table) 04/18/20 Range/Units 07:26 Chloride 109 H (98-107) mmol/L Glucose 114 H (74-99) mg/dL LDL Cholesterol, Calc 100 H (0-99) mg/dL Assessment and Plan Assessment: Assessment #1 chest discomfort #2 hypertension #3 mild underlying dementia Plan #1 acute coronary event was ruled out #2 PE was ruled out #3 aortic dissection was ruled out #4 the patient has been asymptomatic #5 she can be discharged home
--- NOTE | 2020-04-18 16:00 | ECHOF ---
Referral Reason:chest pain MEASUREMENTS -------- HEIGHT: 172.7 cm WEIGHT: 77.1 kg BP: 124/66 IVSd: 1.4 cm (0.6 - 1.1) LVIDd: 3.5 cm (3.9 - 5.3) LVPWd: 1.6 cm (0.6 - 1.1) IVSs: 1.8 cm LVIDs: 1.8 cm LVPWs: 1.9 cm LAESV Index (A-L): 37.70 ml/m Ao Diam: 2.8 cm (2.0 - 3.7) MV EXCURSION: 9.514 mm (> 18.000) MV EF SLOPE: 50 mm/s (70 - 150) EPSS: 0.5 cm MV E Earl: 0.94 m/s MV DecT: 184 ms MV A Earl: 0.75 m/s MV E/A Ratio: 1.25 AV maxP.60 mmHg AV meanP.98 mmHg RAP: 5.00 mmHg RVSP: 40.64 mmHg FINDINGS -------- This was a technically difficult study with suboptimal apical views. The left ventricular size is normal. There is moderate concentric left ventricular hypertrophy. O verall left ventricular systolic function is normal with, an EF between 55 - 60 %. The RV was not well visualized. LA is moderately dilated 34-39 ml/m2 The right atrium was not well visualized. 5.0mg of Lumason was utilized for enhancement of images Interatrial and interventricular septum intact. The aortic valve was not well visualized. There is no evidence of aortic regurgitation. There is no evidence of aortic stenosis. The mitral valve was not well visualized. No mitral regurgitation. [id number] tricuspid regurgitation present. There is mild to moderate pulmonary hypertension. The right ventricular systolic pressure, as measured by Doppler, is 40.64mmHg. Trace/mild (physiologic) pulmonic regurgitation. The aortic root size is normal. IVC Not well visulized. There is no pericardial effusion. CONCLUSIONS -------- 1. The left ventricular size is normal. 2. There is moderate concentric left ventricular hypertrophy. 3. Overall left ventricular systolic function is normal with, an EF between 55 - 60 %. 4. LA is moderately dilated 34-39 ml/m2 5. [id number] tricuspid regurgitation present. 6. There is mild to moderate pulmonary hypertension. 7. The right ventricular systolic pressure, as measured by Doppler, is 40.64mmHg. 8. Trace/mild (physiologic) pulmonic regurgitation. FILER FINISH: Celeste Mendoza RDCS
== END 2020-04-18 12:50 | disposition home or self-care (01) ==
LOC: EC 00:29 → 3NCARDOBS 03:46
PROVIDERS: ADMIT Internal Medicine; ATTEND Internal Medicine
DX: R07.89 Other chest pain (principal); R00.2 Palpitations; R06.02 Shortness of breath; J44.9 Chronic obstructive pulmonary disease, unspecified; F03.90 Unspecified dementia, unspecified severity, without behavioral disturbance, psychotic disturbance, mood disturbance, and anxiety; E11.9 Type 2 diabetes mellitus without complications; Z79.82 Long term (current) use of aspirin; Z79.890 Hormone replacement therapy; Z79.899 Other long term (current) drug therapy; Z88.1 Allergy status to other antibiotic agents; Z88.5 Allergy status to narcotic agent; Z88.0 Allergy status to penicillin; Z88.2 Allergy status to sulfonamides; Z88.8 Allergy status to other drugs, medicaments and biological substances; Z91.018 Allergy to other foods; Z86.73 Personal history of transient ischemic attack (TIA), and cerebral infarction without residual deficits; M79.7 Fibromyalgia; N28.9 Disorder of kidney and ureter, unspecified; G47.30 Sleep apnea, unspecified; Z99.89 Dependence on other enabling machines and devices; E03.9 Hypothyroidism, unspecified; K90.0 Celiac disease; Z86.19 Personal history of other infectious and parasitic diseases; Z87.440 Personal history of urinary (tract) infections; Z98.41 Cataract extraction status, right eye; Z90.49 Acquired absence of other specified parts of digestive tract; Z90.710 Acquired absence of both cervix and uterus; Z96.653 Presence of artificial knee joint, bilateral; Z98.1 Arthrodesis status; Z98.890 Other specified postprocedural states; Z80.1 Family history of malignant neoplasm of trachea, bronchus and lung; Z83.3 Family history of diabetes mellitus; Z82.49 Family history of ischemic heart disease and other diseases of the circulatory system
CPT/HCPCS: 93005 ×2; 96360; 96361; 99285; 36415; 85379; 83880; 80061; 80053; 80048; 83735; 84484; 85025; 85610; 85730; 71046; 71275; G0378 ×2; C8929; Q9950; Q9967; 93306

== ENCOUNTER 2020-07-27 12:37 | Observation (INO) | payer MEDICARE ==
[2020-07-27] MEDS ORDERED: METOCLOPRAMIDE 5 MG/ML 2 ML VIAL IVP STA (12:55)
[2020-07-27] MEDS ORDERED: MECLIZINE 12.5 MG TAB PO STA (12:55)
[2020-07-27] MEDS ORDERED: SODIUM CHLORIDE 0.9% 1,000 ML IV STA (12:56)
--- NOTE | 2020-07-27 13:01 | ED ---
General Adult HPI - General Chief complaint: Dizziness Stated complaint: Dizziness Time Seen by Provider: 07/27/20 12:47 Source: patient, family, RN notes reviewed Mode of arrival: wheelchair Limitations: no limitations - History of Present Illness Initial comments: patient is a pleasant 85-year-old female presenting to the emergency Department with complaints of dizziness. Onset of symptoms was this morning. Sudden onset. Symptoms have slightly improved since onset however have not resolved. Patient feels like she has some blurry vision. Patient states she is dizzy and has a spinning type sensation. Symptoms are worse with upright position and movement. Symptoms do improve with lying down. No history of similar symptoms previously. No confusion or speech from his. No isolated area of weakness. - Related Data Home Medications Medication Instructions Recorded Confirmed Levothyroxine Sodium [Synthroid] 75 mcg PO DAILY 09/10/18 07/27/20 Aspirin [[place] Aspirin EC] 81 mg PO DAILY 04/14/20 07/27/20 Omeprazole [PriLOSEC] 40 mg PO DAILY PRN 04/14/20 07/27/20 hydrALAZINE HCL [Apresoline] 50 mg PO TID-W/MEALS 04/14/20 07/27/20 ARIPiprazole [Abilify Maintena] 300 mg PO Q28D 07/27/20 07/27/20 Isosorbide Mononitrate ER [Imdur] 30 mg PO HS 07/27/20 07/27/20 Losartan Potassium [Cozaar] 100 mg PO DAILY@1200 07/27/20 07/27/20 Allergies Allergy/AdvReac Type Severity Reaction Status Date / Time grape [Raisin] Allergy Severe Anaphylaxis Verified 07/27/20 13:21 acetaminophen Allergy Chest Pain Verified 07/27/20 13:21 [From Darvocet-N 100] atorvastatin Allergy Dyspnea Verified 07/27/20 13:21 codeine Allergy Hallucinati Verified 07/27/20 13:21 ons erythromycin base Allergy Chest Pain Verified 07/27/20 13:21 hydrocodone Allergy Chest Pain Verified 07/27/20 13:21 hydromorphone HCl Allergy Dyspnea Verified 07/27/20 13:21 [From Dilaudid] levofloxacin [From Levaquin] Allergy Hallucinati Verified 07/27/20 13:21 ons loratadine Allergy Chest Pain Verified 07/27/20 13:21 meperidine Allergy Chest Pain Verified 07/27/20 13:21 montelukast Allergy Unknown Verified 07/27/20 13:21 morphine Allergy Unknown Verified 07/27/20 13:21 Mushroom Allergy Anaphylaxis Verified 07/27/20 13:21 oxycodone HCl Allergy Hallucinati Verified 07/27/20 13:21 [From OxyContin] ons Penicillins Allergy Unknown Verified 07/27/20 13:21 pentazocine lactate Allergy "BLOOD Verified 07/27/20 13:21 [From Talwin] PRESSURE DROPPED" prednisone Allergy Unknown Verified 07/27/20 13:21 propoxyphene napsylate Allergy Chest Pain Verified 07/27/20 13:21 [From Darvocet-N 100] risperidone [From Risperdal] Allergy Rash/Hives Verified 07/27/20 13:21 tramadol HCl [From Ultram] Allergy Hallucinati Verified 07/27/20 13:21 ons ramipril AdvReac LIGHTHEADED Verified 07/27/20 13:21 NESS sulfamethoxazole AdvReac THRUSH Verified 07/27/20 13:21 [From Bactrim] trimethoprim [From Bactrim] AdvReac THRUSH Verified 07/27/20 13:21 Review of Systems ROS Statement: Those systems with pertinent positive or pertinent negative responses have been documented in the HPI. ROS Other: All systems not noted in ROS Statement are negative. Constitutional: Denies: fever Eyes: Denies: eye pain ENT: Denies: ear pain Respiratory: Denies: cough, dyspnea Cardiovascular: Denies: chest pain Endocrine: Denies: fatigue Gastrointestinal: Denies: abdominal pain Genitourinary: Denies: dysuria Musculoskeletal: Denies: back pain Skin: Denies: rash Neurological: Reports: vertigo. Denies: headache, weakness Past Medical History Past Medical History: COPD, CVA/TIA, Dementia, Diabetes Mellitus, Fibromyalgia, Renal Disease, Sleep Apnea/CPAP/BIPAP, Thyroid Disorder Additional Past Medical History / Comment(s): Celiac disease. NIDDMdiet controlled. MILD CVA in 2006. Hypothyroidism. 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 CATARACT.shingles 09/28,uti History of Any Multi-Drug Resistant Organisms: None Reported Past Surgical History: Appendectomy, Cholecystectomy, Hysterectomy, Joint Replacement, Orthopedic Surgery Additional Past Surgical History / Comment(s): TOTAL KARTIK Knees. Cervical fusion; Left Shoulder; Thyroid surgery. CTR. EXC RT CATARACT 12/07/15. Past Anesthesia/Blood Transfusion Reactions: No Reported Reaction Past Psychological History: No Psychological Hx Reported Smoking Status: Never smoker Past Alcohol Use History: None Reported Past Drug Use History: None Reported - Past Family History Father Family Medical History: Cancer Additional Family Medical History / Comment(s): Father at age 79 from lung cancer. Mother Family Medical History: Diabetes Mellitus Additional Family Medical History / Comment(s): Mother at age 78 from complications from diabetes. Brother(s) Family Medical History: Myocardial Infarction ([place]) Additional Family Medical History / Comment(s): Patient has one sister that lives in [place] and she does not know any medical history. General Exam Limitations: no limitations General appearance: alert, in no apparent distress Head exam: Present: atraumatic, normocephalic Eye exam: Present: normal appearance, PERRL, EOMI. Absent: nystagmus ENT exam: Present: normal oropharynx Neck exam: Present: normal inspection Respiratory exam: Present: normal lung sounds bilaterally Cardiovascular Exam: Present: regular rate, normal rhythm GI/Abdominal exam: Present: soft. Absent: tenderness Extremities exam: Present: normal inspection Neurological exam: Present: alert, oriented X3, CN II-XII intact. Absent: motor sensory deficit Expanded Neurological exam: Present: protecting the airway Speech: Present: fluid speech Cranial nerves: EOM's Intact: Normal, Facial Sensation: Normal Motor strength exam: RUE: 5, LUE: 5, RLE: 5, LLE: 5 Eye Response: (4) open spontaneously Motor Response: (6) obeys commands Verbal Response: (5) oriented Psychiatric exam: Present: normal affect, normal mood Skin exam: Present: normal color Course Vital Signs 07/27/20 07/27/20 07/27/20 12:41 13:22 14:53 Temperature 97.8 F Pulse Rate 98 66 79 Respiratory 16 16 16 Rate Blood Pressure 93/49 106/51 143/60 O2 Sat by Pulse 94 L 99 98 Oximetry 07/27/20 16:50 Temperature Pulse Rate 64 Respiratory 16 Rate Blood Pressure 141/66 O2 Sat by Pulse 99 Oximetry EKG Findings - EKG Comments: EKG Findings:: normal sinus rhythm at 69. Sinus arrhythmia. [place] 150. QRS 70. QT 422. QTC 452. Normal axis. Normal QRS. No acute ST change. Medical Decision Making - Medical Decision Making atient reevaluated and was feeling somewhat better however unable to get up or walk without assistance despite several medications. Patient and family updated on results. Case discussed with Dr. yap, who will admit covering for Dr. Love - Lab Data Result diagrams: 07/27/20 13:10 07/27/20 13:10 Lab Results 07/27/20 07/27/20 07/27/20 Range/Units 13:10 13:10 13:10 WBC 8.9 (3.8-10.6) k/uL RBC 4.80 (3.80-5.40) m/uL Hgb 13.4 (11.4-16.0) gm/dL Hct 40.2 (34.0-46.0) % MCV 83.8 (80.0-100.0) fL MCH 28.0 (25.0-35.0) pg MCHC 33.4 (31.0-37.0) g/dL RDW 14.1 (11.5-15.5) % Plt Count 252 (150-450) k/uL MPV 7.7 Neutrophils % 87 % Lymphocytes % 8 % Monocytes % 3 % Eosinophils % 1 % Basophils % 1 % Neutrophils # 7.7 (1.3-7.7) k/uL Lymphocytes # 0.7 L (1.0-4.8) k/uL Monocytes # 0.3 (0-1.0) k/uL Eosinophils # 0.1 (0-0.7) k/uL Basophils # 0.1 (0-0.2) k/uL PT 9.8 (9.0-12.0) sec INR 0.9 (<1.2) APTT 21.4 L (22.0-30.0) sec Sodium 134 L (137-145) mmol/L Potassium 4.2 (3.5-5.1) mmol/L Chloride 103 (98-107) mmol/L Carbon Dioxide 20 L (22-30) mmol/L Anion Gap 11 mmol/L BUN 29 H (7-17) mg/dL Creatinine 1.62 H (0.52-1.04) mg/dL Est GFR (CKD-EPI)AfAm 34 (>60 ml/min/1.73 sqM) Est GFR (CKD-EPI)NonAf 29 (>60 ml/min/1.73 sqM) Glucose 177 H (74-99) mg/dL Calcium 9.3 (8.4-10.2) mg/dL Total Bilirubin 0.5 (0.2-1.3) mg/dL AST 23 (14-36) U/L ALT 16 (4-34) U/L Alkaline Phosphatase 93 (38-126) U/L Total Protein 7.5 (6.3-8.2) g/dL Albumin 4.1 (3.5-5.0) g/dL - Radiology Data Radiology results: report reviewed (Computed tomography scan of the brain shows degenerative and nonspecific white matter changes most typical of remote ischemia without acute hemorrhage or mass effect.) Disposition Clinical Impression: Vertigo Disposition: ADMITTED IP TO THIS HOSP Is patient prescribed a controlled substance at d/c from ED?: No Referrals: Kaushik Love [Primary Care Provider] - 1-2 days Decision Time: 16:53
[2020-07-27 13:40] LABS: Albumin 4.1 g/dL (3.5-5.0); Calcium 9.3 mg/dL (8.4-10.2); Potassium 4.2 mmol/L (3.5-5.1); Total Bilirubin 0.5 mg/dL (0.2-1.3); Total Protein 7.5 g/dL (6.3-8.2)
[2020-07-27 13:58] LABS: Basophils # (A) 0.1 k/uL (0-0.2); Basophils % (A) 1 %; Eosinophils # (A) 0.1 k/uL (0-0.7); Eosinophils % (A) 1 %; HCT 40.2 % (34.0-46.0); HGB 13.4 gm/dL (11.4-16.0); Lymphocytes # (A) 0.7 k/uL (1.0-4.8); Lymphocytes % (A) 8 %; MCHC 33.4 g/dL (31.0-37.0); MCV 83.8 fL (80.0-100.0); Mean Platelet Volume 7.7; Monocytes # (A) 0.3 k/uL (0-1.0); Monocytes % (A) 3 %; Neutrophils # (A) 7.7 k/uL (1.3-7.7); Neutrophils % (A) 87 %; Platelet Count 252 k/uL (150-450); RDW 14.1 % (11.5-15.5); WBC 8.9 k/uL (3.8-10.6)
[2020-07-27 14:08] LABS: INR 0.9 (<1.2); Prothrombin Time 9.8 sec (9.0-12.0)
[2020-07-27 14:09] LABS: Partial Thromboplastin Time 21.4 sec (22.0-30.0)
--- NOTE | 2020-07-27 14:14 | CT ---
EXAMINATION TYPE: CT brain wo con DATE OF EXAM: 07/27/2020 COMPARISON: 02/10/2010 HISTORY: Weakness, blurred vision with history of CVA CT DLP: 1066.4 mGycm Automated exposure control for dose reduction was used. FINDINGS: [id number] degenerative change of the greater frontal lobe component. Low-attenuation the white matter is nonspecific but most typical remote microvascular ischemia. No acute hemorrhage or mass ef fect. No midline shift. Craniocervical junction maintained. Sella turcica has a normal appearance. IMPRESSION: DEGENERATIVE AND NONSPECIFIC WHITE MATTER CHANGES MOST TYPICAL REMOTE ISCHEMIA WITH NO EVIDENCE OF AC MARIALUISA HEMORRHAGE OR MASS EFFECT.
[2020-07-27] MEDS ORDERED: SODIUM CHLORIDE 0.9% 500 ML 500 ML IV STA (14:35)
[2020-07-27] MEDS ORDERED: diazePAM 2 MG TAB PO STA (16:19)
[2020-07-27] MEDS ORDERED: SCOPOLAMINE 1.5MG/72HR PATCH TRANSDERM STA (16:19)
[2020-07-27] MEDS ORDERED: NALOXONE 0.4 MG/ML 1 ML VIAL IV PRN (16:53)
[2020-07-27] MEDS ORDERED: MECLIZINE 25 MG TAB PO PRN (16:54)
[2020-07-27] MEDS ORDERED: PANTOPRAZOLE 40 MG TABLET PO PRN (18:00)
--- NOTE | 2020-07-27 18:03 | P.HPIM ---
History of Present Illness H&P Date: 07/27/20 Patient is an 85-year-old female with a PMH of type II DM, COPD, and hypothyroidism who presented to the emergency room with complaints of dizziness. The patient reports that her symptoms started earlier today when she was in her shower. She describes it as a spinning sensation and lightheadedness, which improved with sitting down. Whenever she tried to stand back up, her symptoms worsened, at which time she asked her daughter to take her to the hospital. Reports never having such symptoms the past. Denied falls or loss of consciousness. Denied a change in her bowel movements or urinary complaints. Denied changes in her oral intake. Noted that her symptoms lasted for roughly 30 minutes. Notes that her symptoms recurred when she attempted to walk in the emergency room. Denied experiencing weakness or numbness at any time. Denied facial asymmetry or changes in her speech. Also denied hearing issues. Patient underwent an extensive evaluation in the emergency room. Her vital signs upon presentation were BP 93/49, pulse of 98, SpO2 94% on room air and a temperature 97.8. Laboratory evaluation revealed BUN of 29 (up from a baseline of 13), creatinine of 1.62 (up from baseline of 0.8), sodium 134, potassium 4.2, CO2 20, glucose 177. CT brain in the emergency room was negative for acute intracranial abnormalities with EKG showing normal sinus rhythm with sinus arrhythmia at [address]/T-wave changes noted as reviewed by me. Review of Systems Pertinent positives and negatives as discussed in HPI, a complete review of systems was performed and all other systems are negative. Past Medical History Past Medical History: COPD, CVA/TIA, Dementia, Diabetes Mellitus, Fibromyalgia, Renal Disease, Sleep Apnea/CPAP/BIPAP, Thyroid Disorder Additional Past Medical History / Comment(s): Celiac disease. NIDDMdiet controlled. MILD CVA in 2006. Hypothyroidism. 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 CATARACT.shingles 09/28,uti History of Any Multi-Drug Resistant Organisms: None Reported Past Surgical History: Appendectomy, Cholecystectomy, Hysterectomy, Joint Replacement, Orthopedic Surgery Additional Past Surgical History / Comment(s): TOTAL KARTIK Knees. Cervical fusion; Left Shoulder; Thyroid surgery. CTR. EXC RT CATARACT 12/07/15. Past Anesthesia/Blood Transfusion Reactions: No Reported Reaction Past Psychological History: No Psychological Hx Reported Smoking Status: Never smoker Past Alcohol Use History: None Reported Past Drug Use History: None Reported - Past Family History Father Family Medical History: Cancer Additional Family Medical History / Comment(s): Father at age 79 from lung cancer. Mother Family Medical History: Diabetes Mellitus Additional Family Medical History / Comment(s): Mother at age 78 from complications from diabetes. Brother(s) Family Medical History: Myocardial Infarction ([place]) Additional Family Medical History / Comment(s): Patient has one sister that lives in [place] and she does not know any medical history. Medications and Allergies Home Medications Medication Instructions Recorded Confirmed Type Levothyroxine Sodium [Synthroid] 75 mcg PO DAILY 09/10/18 07/27/20 History Aspirin [[place] Aspirin EC] 81 mg PO DAILY 04/14/20 07/27/20 History Omeprazole [PriLOSEC] 40 mg PO DAILY PRN 04/14/20 07/27/20 History hydrALAZINE HCL [Apresoline] 50 mg PO TID-W/MEALS 04/14/20 07/27/20 History ARIPiprazole [Abilify Maintena] 300 mg PO Q28D 07/27/20 07/27/20 History Isosorbide Mononitrate ER [Imdur] 30 mg PO HS 07/27/20 07/27/20 History Losartan Potassium [Cozaar] 100 mg PO DAILY@1200 07/27/20 07/27/20 History Allergies Allergy/AdvReac Type Severity Reaction Status Date / Time grape [Raisin] Allergy Severe Anaphylaxis Verified 07/27/20 13:21 acetaminophen Allergy Chest Pain Verified 07/27/20 13:21 [From Darvocet-N 100] atorvastatin Allergy Dyspnea Verified 07/27/20 13:21 codeine Allergy Hallucinati Verified 07/27/20 13:21 ons erythromycin base Allergy Chest Pain Verified 07/27/20 13:21 hydrocodone Allergy Chest Pain Verified 07/27/20 13:21 hydromorphone HCl Allergy Dyspnea Verified 07/27/20 13:21 [From Dilaudid] levofloxacin [From Levaquin] Allergy Hallucinati Verified 07/27/20 13:21 ons loratadine Allergy Chest Pain Verified 07/27/20 13:21 meperidine Allergy Chest Pain Verified 07/27/20 13:21 montelukast Allergy Unknown Verified 07/27/20 13:21 morphine Allergy Unknown Verified 07/27/20 13:21 Mushroom Allergy Anaphylaxis Verified 07/27/20 13:21 oxycodone HCl Allergy Hallucinati Verified 07/27/20 13:21 [From OxyContin] ons Penicillins Allergy Unknown Verified 07/27/20 13:21 pentazocine lactate Allergy "BLOOD Verified 07/27/20 13:21 [From Talwin] PRESSURE DROPPED" prednisone Allergy Unknown Verified 07/27/20 13:21 propoxyphene napsylate Allergy Chest Pain Verified 07/27/20 13:21 [From Darvocet-N 100] risperidone [From Risperdal] Allergy Rash/Hives Verified 07/27/20 13:21 tramadol HCl [From Ultram] Allergy Hallucinati Verified 07/27/20 13:21 ons ramipril AdvReac LIGHTHEADED Verified 07/27/20 13:21 NESS sulfamethoxazole AdvReac THRUSH Verified 07/27/20 13:21 [From Bactrim] trimethoprim [From Bactrim] AdvReac THRUSH Verified 07/27/20 13:21 Physical Exam Vitals: Vital Signs Temp Pulse Resp BP Pulse Ox 07/27/20 16:50 64 16 141/66 99 07/27/20 14:53 79 16 143/60 98 07/27/20 13:22 66 16 106/51 99 07/27/20 12:41 97.8 F 98 16 93/49 94 L Intake and Output 07/27/20 07/27/20 07/27/20 06:59 14:59 22:59 Other: Weight 77.111 kg General: non toxic, no distress, appears at stated age, normal weight Derm: no unusual rashes/lesions no unusual ecchymoses, warm, dry Head: atraumatic, normocephalic, symmetric Eyes: EOMI, no lid lag, anicteric sclera, pupils equal round reactive to light ENT: Nose and ears atraumatic, no thrush, no pharyngeal erythema Neck: No thyromegaly, no cervical lymphadenopathy, trachea midline, supple Mouth: no lip lesion, mucus membranes somewhat dry Cardiovascular: S1S2 reg, no murmur, positive posterior tibial pulse bilateral, no edema, capillary refill less than 2 seconds Lungs: CTA bilateral, no rhonchi, no rales , no accessory muscle use Abdominal: soft, nontender to palpation, no guarding, no appreciable organomegaly, normal bowel sounds Ext: no gross muscle atrophy, muscle strength 5 out of 5 in all 4 extremities grossly, no contractures, Neuro: CN II-XI grossly intact, light touch intact all 4 extremities, finger to nose within normal limits, Psych: Alert, oriented, appropriate affect Results CBC & Chem 7: 07/27/20 13:10 07/27/20 13:10 Labs: Abnormal Lab Results - Last 24 Hours (Table) 07/27/20 07/27/20 07/27/20 Range/Units 13:10 13:10 13:10 Lymphocytes # 0.7 L (1.0-4.8) k/uL APTT 21.4 L (22.0-30.0) sec Sodium 134 L (137-145) mmol/L Carbon Dioxide 20 L (22-30) mmol/L BUN 29 H (7-17) mg/dL Creatinine 1.62 H (0.52-1.04) mg/dL Glucose 177 H (74-99) mg/dL Assessment and Plan Plan: Lightheadedness and vertigo, suspected orthostatic hypotension -Less likely CVA due to the highly positional nature of her symptoms -Orthostatic vital signs were not performed in the emergency room. Asked the RN to immediately test orthostatics. -Continue with IV fluids -Fall precautions -Anti-emetics -Meclizine when necessary Hyponatremia -Likely due to poor oral intake -Monitor BMP for now HTN -Hold off on antihypertensives Chronic conditions: Type II DM, hypothyroidism -Diet controlled diabetes as per patient -Insulin sliding scale blood glucose monitoring -Check A1c -C/w home synthroid dose DVT prophylaxis -Heparin subq The patient is admitted with an anticipated less than 2 midnight stay for evaluation of lightheadedness CODE STATUS: Full Code Discussed with: patient Anticipated discharge date: in am Anticipated discharge place: home A total of 40 minutes was spent on the care of this complex patient more than 50% of the time was spent in counseling and care coordination.
[2020-07-27 18:15] LABS: Glucose,Whole Blood 93 mg/dL (75-99)
[2020-07-27] MEDS: METOCLOPRAMIDE 10 MG TAB PO SCH ×2 (18:30→20:13)
[2020-07-27 19:48] LABS: Glucose,Whole Blood 163 mg/dL (75-99)
[2020-07-27] MEDS: INSULIN ASPART (NovoLOG) 100 UNIT/ML VIAL SQ SCH (20:12)
[2020-07-27 22:23] LABS: Appearance,Urine Clear (Clear); Bilirubin,Urine Negative (Negative); Blood,Urine Negative (Negative); Color,Urine Light Yellow; Glucose,Urine (UA) Negative (Negative); Ketones,Urine Negative (Negative); Leukocyte Esterase,Urine Large (Negative); Mucus,Urine Rare /hpf; Nitrite,Urine Negative (Negative); Protein,Urine Negative (Negative); RBC,Urine 3 /hpf (0-5); Specific Gravity,Urine 1.008 (1.001-1.035); Squamous Epithelial Cell,Urine 1 /hpf (0-4); Urobilinogen,Urine <2.0 mg/dL (<2.0); WBC,Urine 31 /hpf (0-5)
[2020-07-27] MEDS: HEPARIN SODIUM,PORCINE 5,000 UNIT/ML 1 ML VIAL SQ SCH (23:12)
[2020-07-28 04:36] LABS: Hemoglobin A1C 6.4 % (4.0-6.0)
[2020-07-28 06:28] LABS: Glucose,Whole Blood 110 mg/dL (75-99)
[2020-07-28] MEDS: METOCLOPRAMIDE 10 MG TAB PO SCH (06:30)
[2020-07-28] MEDS ORDERED: LEVOTHYROXINE 75 MCG TAB PO SCH (06:30)
[2020-07-28] MEDS: INSULIN ASPART (NovoLOG) 100 UNIT/ML VIAL SQ SCH (06:31)
[2020-07-28 07:33] LABS: Calcium 8.6 mg/dL (8.4-10.2); Potassium 4.5 mmol/L (3.5-5.1)
[2020-07-28 08:16] VITALS: BP 133/64; PULSE 55; RESP 16; TEMP 98.1
[2020-07-28] MEDS: HEPARIN SODIUM,PORCINE 5,000 UNIT/ML 1 ML VIAL SQ SCH (08:27)
--- NOTE | 2020-07-28 08:53 | P.DS ---
Providers Date of admission: 07/27/20 16:53 Expected date of discharge: 07/28/20 Attending physician: Florencia Cline MD Primary care physician: [facility] Course: This is a 85-year-old female with past medical history significant for type 2 diabetes, COPD, hypertension, and hypothyroidism who presented to the emergency room with complaint of dizziness and symptoms suggestive for orthostatic hypotension. Patient was evaluated in the ER and computed tomography scan of the brain showed no acute intracranial findings. Patient was noted to have a low blood pressure on presentation in the 90s over 40s range. There was no ev idence of infection. Patient was placed on observation. Twelve-lead EKG showed normal sinus rhythm with no acute ischemic changes. Her blood pressure medications were held and blood pressure improved significantly. Orthostatic blood pressure checked and negative. Patient had no dizziness whatsoever at the morning of my evaluation. She was up to the bathroom with no difficulty. I recommended decreasing her antihypertensive medication doses. We will decrease losartan dose from 100 mg to 50 mg daily. Decrease hydralazine dose from 50 mg 3 times a day to 10 mg 3 times a day. Patient encouraged to continue to monitor her blood pressure at home 2 or 3 times a day. Follow-up with PCP as directed. Patient will be discharged home in a stable condition. For further details about this hospitalization please refer to the electronic chart. Time spent on discharge > 30 minutes including counseling and coordination of care Patient Condition at Discharge: Fair Plan - Discharge Summary Discharge Rx Participant: No New Discharge Prescriptions: New Losartan [Cozaar] 50 mg PO DAILY #30 tab hydrALAZINE HCL 10 mg PO TID #90 tablet Continue Levothyroxine Sodium [Synthroid] 75 mcg PO DAILY Omeprazole [PriLOSEC] 40 mg PO DAILY PRN PRN Reason: GERD Aspirin [[place] Aspirin EC] 81 mg PO DAILY ARIPiprazole [Abilify Maintena] 300 mg PO Q28D Isosorbide Mononitrate ER [Imdur] 30 mg PO HS Discontinued hydrALAZINE HCL [Apresoline] 50 mg PO TID-W/MEALS Losartan Potassium [Cozaar] 100 mg PO DAILY@1200 Discharge Medication List Levothyroxine Sodium [Synthroid] 75 mcg PO DAILY 09/10/18 [History] Aspirin [[place] Aspirin EC] 81 mg PO DAILY 04/14/20 [History] Omeprazole [PriLOSEC] 40 mg PO DAILY PRN 04/14/20 [History] ARIPiprazole [Abilify Maintena] 300 mg PO Q28D 07/27/20 [History] Isosorbide Mononitrate ER [Imdur] 30 mg PO HS 07/27/20 [History] Losartan [Cozaar] 50 mg PO DAILY #30 tab 07/28/20 [Rx] hydrALAZINE HCL 10 mg PO TID #90 tablet 07/28/20 [Rx] Follow up Appointment(s)/Referral(s): Kaushik Love [Primary Care Provider] - 1-2 days Discharge Disposition: HOME SELF-CARE
[2020-07-28] MEDS ORDERED: ASPIRIN 81 MG PO SCH (09:00)
== END 2020-07-28 11:55 | disposition home or self-care (01) ==
LOC: EC 12:37 → 3NCARDOBS 16:53
PROVIDERS: ADMIT Internal Medicine; ATTEND Internal Medicine
DX: R42 Dizziness and giddiness (principal); E87.1 Hypo-osmolality and hyponatremia; H53.8 Other visual disturbances; R03.1 Nonspecific low blood-pressure reading; E03.9 Hypothyroidism, unspecified; E11.9 Type 2 diabetes mellitus without complications; I10 Essential (primary) hypertension; J44.9 Chronic obstructive pulmonary disease, unspecified; F03.90 Unspecified dementia, unspecified severity, without behavioral disturbance, psychotic disturbance, mood disturbance, and anxiety; M79.7 Fibromyalgia; G47.30 Sleep apnea, unspecified; Z99.89 Dependence on other enabling machines and devices; K90.0 Celiac disease; Z79.82 Long term (current) use of aspirin; Z79.890 Hormone replacement therapy; Z79.899 Other long term (current) drug therapy; Z88.6 Allergy status to analgesic agent; Z88.1 Allergy status to other antibiotic agents; Z88.5 Allergy status to narcotic agent; Z88.0 Allergy status to penicillin; Z88.2 Allergy status to sulfonamides; Z88.8 Allergy status to other drugs, medicaments and biological substances; Z91.018 Allergy to other foods; Z86.73 Personal history of transient ischemic attack (TIA), and cerebral infarction without residual deficits; Z87.448 Personal history of other diseases of urinary system; Z86.19 Personal history of other infectious and parasitic diseases; Z87.440 Personal history of urinary (tract) infections; Z98.41 Cataract extraction status, right eye; Z90.49 Acquired absence of other specified parts of digestive tract; Z90.710 Acquired absence of both cervix and uterus; Z96.653 Presence of artificial knee joint, bilateral; Z98.1 Arthrodesis status; Z98.890 Other specified postprocedural states; Z80.1 Family history of malignant neoplasm of trachea, bronchus and lung; Z83.3 Family history of diabetes mellitus; Z82.49 Family history of ischemic heart disease and other diseases of the circulatory system
CPT/HCPCS: 96361 ×2; 96372; 96374; 99285; 36415; 93005; 80053; 80048; 85025; 85610; 85730; 81001; 87086; 83036; 70450; G0378 ×2; J1644; J2765

== ENCOUNTER 2020-09-22 02:31 | Emergency (ER) | payer MEDICARE ==
[2020-09-22 02:39] VITALS: TEMP 97.9
--- NOTE | 2020-09-22 02:50 | ED ---
Fall HPI - General Chief Complaint: Fall Stated Complaint: Fall, head injury Time Seen by Provider: 09/22/20 02:33 Source: patient, family, RN notes reviewed, old records reviewed Mode of arrival: wheelchair Limitations: no limitations - History of Present Illness Initial Comments: This is a 85-year-old female DF for evaluation patient presents today for evaluation regards to fall patient fell out of bed landing on her right side. Multiple complaints right wrist pain left foot pain right elbow pain right shoulder pain she did hit her head she has some mild neck pain and some having some also some hip pain. Patient denies loss of consciousness. History of multiple falls. Patient's brought in by daughter. Patient has no other symptoms of weakness or dizziness. No chest pain. No shortness of breath. Patient does have a skin tear to right elbow forearm area which is bleeding MD Complaint: fall -: hour(s) Fall From: standing, out of bed When Fall Occurred: 1 hour [employer] Fall Witnessed: yes, by family Place Fall Occurred: home Loss of Consciousness: none Prolonged Down Time?: no Symptoms Prior to Fall: none Location: head, neck Location - Extremities: Right: Shoulder, Elbow, Forearm, Thigh Severity: moderate Severity scale (1-10): 3 Quality: burning Context: tripped/slipped Associated Symptoms: denies - Related Data Home Medications Medication Instructions Recorded Confirmed Levothyroxine Sodium [Synthroid] 75 mcg PO DAILY 09/10/18 07/27/20 Aspirin [[place] Aspirin EC] 81 mg PO DAILY 04/14/20 07/27/20 Omeprazole [PriLOSEC] 40 mg PO DAILY PRN 04/14/20 07/27/20 ARIPiprazole [Abilify Maintena] 300 mg PO Q28D 07/27/20 07/27/20 Isosorbide Mononitrate ER [Imdur] 30 mg PO HS 07/27/20 07/27/20 Previous Rx's Medication Instructions Recorded Losartan [Cozaar] 50 mg PO DAILY #30 tab 07/28/20 hydrALAZINE HCL 10 mg PO TID #90 tablet 07/28/20 Allergies Allergy/AdvReac Type Severity Reaction Status Date / Time grape [Raisin] Allergy Severe Anaphylaxis Verified 07/27/20 13:21 acetaminophen Allergy Chest Pain Verified 07/27/20 13:21 [From Darvocet-N 100] atorvastatin Allergy Dyspnea Verified 07/27/20 13:21 codeine Allergy Hallucinati Verified 07/27/20 13:21 ons erythromycin base Allergy Chest Pain Verified 07/27/20 13:21 hydrocodone Allergy Chest Pain Verified 07/27/20 13:21 hydromorphone HCl Allergy Dyspnea Verified 07/27/20 13:21 [From Dilaudid] levofloxacin [From Levaquin] Allergy Hallucinati Verified 07/27/20 13:21 ons loratadine Allergy Chest Pain Verified 07/27/20 13:21 meperidine Allergy Chest Pain Verified 07/27/20 13:21 montelukast Allergy Unknown Verified 07/27/20 13:21 morphine Allergy Unknown Verified 07/27/20 13:21 Mushroom Allergy Anaphylaxis Verified 07/27/20 13:21 oxycodone HCl Allergy Hallucinati Verified 07/27/20 13:21 [From OxyContin] ons Penicillins Allergy Unknown Verified 07/27/20 13:21 pentazocine lactate Allergy "BLOOD Verified 07/27/20 13:21 [From Talwin] PRESSURE DROPPED" prednisone Allergy Unknown Verified 07/27/20 13:21 propoxyphene napsylate Allergy Chest Pain Verified 07/27/20 13:21 [From Darvocet-N 100] risperidone [From Risperdal] Allergy Rash/Hives Verified 07/27/20 13:21 tramadol HCl [From Ultram] Allergy Hallucinati Verified 07/27/20 13:21 ons ramipril AdvReac LIGHTHEADED Verified 07/27/20 13:21 NESS sulfamethoxazole AdvReac THRUSH Verified 07/27/20 13:21 [From Bactrim] trimethoprim [From Bactrim] AdvReac THRUSH Verified 07/27/20 13:21 Review of Systems ROS Statement: Those systems with pertinent positive or pertinent negative responses have been documented in the HPI. ROS Other: All systems not noted in ROS Statement are negative. Past Medical History Past Medical History: COPD, CVA/TIA, Dementia, Diabetes Mellitus, Fibromyalgia, Renal Disease, Sleep Apnea/CPAP/BIPAP, Thyroid Disorder Additional Past Medical History / Comment(s): Celiac disease. NIDDMdiet controlled. MILD CVA in 2006. Hypothyroidism. 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 CATARACT.shingles 09/28,uti History of Any Multi-Drug Resistant Organisms: None Reported Past Surgical History: Appendectomy, Cholecystectomy, Hysterectomy, Joint Replacement, Orthopedic Surgery Additional Past Surgical History / Comment(s): TOTAL KARTIK Knees. Cervical fusion; Left Shoulder; Thyroid surgery. CTR. EXC RT CATARACT 12/07/15. Past Anesthesia/Blood Transfusion Reactions: No Reported Reaction Past Psychological History: No Psychological Hx Reported Smoking Status: Never smoker Past Alcohol Use History: None Reported Past Drug Use History: None Reported - Past Family History Father Family Medical History: Cancer Additional Family Medical History / Comment(s): Father at age 79 from lung cancer. Mother Family Medical History: Diabetes Mellitus Additional Family Medical History / Comment(s): Mother at age 78 from complications from diabetes. Brother(s) Family Medical History: Myocardial Infarction ([place]) Additional Family Medical History / Comment(s): Patient has one sister that lives in [place] and she does not know any medical history. General Exam - General Exam Comments Initial Comments: Patient does have a 3 cm skin tear to her right elbow area which is bleeding Limitations: no limitations General appearance: alert, in no apparent distress Head exam: Present: atraumatic, normocephalic, normal inspection Eye exam: Present: normal appearance, PERRL, EOMI. Absent: scleral icterus, conjunctival injection, periorbital swelling ENT exam: Present: normal exam, mucous membranes moist Neck exam: Present: normal inspection. Absent: tenderness, meningismus, lymphadenopathy Respiratory exam: Present: normal lung sounds bilaterally. Absent: respiratory distress, wheezes, rales, rhonchi, stridor Cardiovascular Exam: Present: regular rate, normal rhythm, normal heart sounds. Absent: systolic murmur, diastolic murmur, rubs, gallop, clicks GI/Abdominal exam: Present: soft, normal bowel sounds. Absent: distended, tenderness, guarding, rebound, rigid Extremities exam: Present: normal inspection, full ROM, normal capillary refill. Absent: tenderness, pedal edema, joint swelling, calf tenderness Back exam: Present: normal inspection Neurological exam: Present: alert, oriented X3, CN II-XII intact Psychiatric exam: Present: normal affect, normal mood Skin exam: Present: warm, dry, intact, normal color. Absent: rash Course Vital Signs 09/22/20 02:34 Temperature 97.9 F Pulse Rate 70 Respiratory 18 Rate Blood Pressure 158/67 O2 Sat by Pulse 98 Oximetry - Reevaluation(s) Reevaluation #1: 09/22/20 04:09 Medical record is reviewed Reevaluation #2: 09/22/20 04:10 Patient is amateur here in the ER Reevaluation #3: 09/22/20 04:10 Patient not requiring any pain control, after pressure management devices place to right forearm leading has stopped wound is repaired with wound care, Dermabond Reevaluation #4: 09/22/20 04:10 Patient family informed of results and questions have been answered Medical Decision Making - Medical Decision Making 85 female status post trip and fall out of bed with skin tear right forearm abrasion, no injury from the fall. Patient can be discharged - Radiology Data Radiology results: report reviewed (CT brain C-spine chest and pelvis x-ray, right hip x-ray right elbow x-ray bilateral wrist x-ray and right shoulder x-ray negative for traumatic injury), image reviewed Disposition Clinical Impression: Fall, Skin tear, Abrasion of right forearm Disposition: HOME SELF-CARE Condition: Good Instructions (If sedation given, give patient instructions): Fall Prevention for Older Adults (ED), Abrasion (ED) Is patient prescribed a controlled substance at d/c from ED?: No Referrals: John Reyes MD [REFERRING] - 1-2 days
--- NOTE | 2020-09-22 03:34 | CT ---
EXAM: CT Head Without Intravenous Contrast CLINICAL HISTORY: ITS.REASON CT Reason: fall TECHNIQUE: Axial computed tomography images of the head/brain without intravenous contrast. CTDI is 28.435 mGy and DLP is 684.25 mGy-cm. This CT exam was performed using one or more of the following dose reduction techniques: automated exposure control, adjustment of the mA and/or kV according to patient size, and/or use of iterative reconstruction technique. COMPARISON: No relevant prior studies available. FINDINGS: Brain: No hemorrhage or mass effect. Ventricles: No hydrocephalus. Bones/joints: Unremarkable. Soft tissues: Unremarkable. Sinuses: Unremarkable. Mastoid air cells: Clear. IMPRESSION: No acute hemorrhage, hydrocephalus, or mass effect. EXAM: CT Cervical Spine Without Intravenous Contrast CLINICAL HISTORY: ITS.REASON CT Reason: fall TECHNIQUE: Axial computed tomography images of the cervical spine without intravenous contrast. CTDI is 28.435 mGy and DLP is 684.25 mGy-cm. This CT exam was performed using one or more of the following dose reduction techniques: automated exposure control, adjustment of the mA and/or kV according to patient size, and/or use of iterative reconstruction technique. COMPARISON: No relevant prior studies available. FINDINGS: Vertebrae: No acute fracture. Chronic minimal anterolisthesis of C3 on C4 and C4 on C5. Discs/spinal canal/neural foramina: Multilevel degenerative disc disease with mild canal stenosis at C4-5 through C6-7. Soft tissues: No prevertebral swelling. IMPRESSION: No acute fracture or subluxation.
[2020-09-22] MEDS ORDERED: LIDOCAINE/EPINEPHR/TETRACAINE 5 ML BOTTLE TOPICAL ONE (03:51)
--- NOTE | 2020-09-22 03:52 | XR ---
EXAM: XR Right Elbow Complete, 3 or More Views CLINICAL HISTORY: ITS.REASON XR Reason: fall TECHNIQUE: Frontal, lateral and oblique views of the right elbow. COMPARISON: No relevant prior studies available. FINDINGS: Bones/joints: No acute fracture. No dislocation. Soft tissues: Unremarkable. IMPRESSION: No acute osseous abnormalities.
--- NOTE | 2020-09-22 03:52 | XR ---
EXAM: XR Bilateral Wrists Complete, 3 or More Views CLINICAL HISTORY: ITS.REASON XR Reason: pain TECHNIQUE: Frontal, lateral and oblique views of the bilateral wrists. COMPARISON: No relevant prior studies available. FINDINGS: Bones/joints: No acute fracture. No dislocation. Moderate degenerative changes at the bilateral first CMC joint. Soft tissues: Unremarkable. No radiopaque foreign body. IMPRESSION: No acute osseous abnormalities.
--- NOTE | 2020-09-22 03:53 | XR ---
EXAM: XR Right Shoulder Complete, 2 or More Views CLINICAL HISTORY: ITS.REASON XR Reason: fall TECHNIQUE: Two or more views of the right shoulder. COMPARISON: No relevant prior studies available. FINDINGS: Bones/joints: No acute fracture. No dislocation. Mild AC joint and shoulder joint osteoarthrosis. Prior rotator cuff repair. Soft tissues: Unremarkable. IMPRESSION: No acute osseous abnormalities.
--- NOTE | 2020-09-22 03:54 | XR ---
EXAM: XR Chest, 1 View CLINICAL HISTORY: ITS.REASON XR Reason: fall TECHNIQUE: Frontal view of the chest. COMPARISON: No relevant prior studies available. FINDINGS: Lungs: No consolidation or mass. Pleural space: No acute findings Heart: No cardiomegaly. Bones/joints: No acute findings. IMPRESSION: No acute cardiopulmonary process.
--- NOTE | 2020-09-22 03:54 | XR ---
EXAM: XR Pelvis Complete, 3 or More Views CLINICAL HISTORY: ITS.REASON XR Reason: fall TECHNIQUE: Frontal and lateral or oblique views of the pelvis. COMPARISON: No relevant prior studies available. FINDINGS: Bones/joints: No acute fracture. No dislocation. Mild bilateral hip osteoarthrosis. Soft tissues: Unremarkable. IMPRESSION: No acute findings.
[2020-09-22] MEDS ORDERED: ACETAMINOPHEN TAB 500 MG TAB PO STA (04:13)
[2020-09-22] MEDS: TOPICAL SKIN ADHESIVE 1 EACH AMP TOPICAL ONE ×4 (04:23→04:39)
[2020-09-22 04:55] VITALS: BP 178/81; PULSE 71; RESP 20
== END 2020-09-22 05:06 | disposition home or self-care (01) ==
LOC: EC 02:31
DX: S51.011A Laceration without foreign body of right elbow, initial encounter (principal); S50.811A Abrasion of right forearm, initial encounter; E11.36 Type 2 diabetes mellitus with diabetic cataract; J44.9 Chronic obstructive pulmonary disease, unspecified; F03.90 Unspecified dementia, unspecified severity, without behavioral disturbance, psychotic disturbance, mood disturbance, and anxiety; E03.9 Hypothyroidism, unspecified; G47.30 Sleep apnea, unspecified; Z79.890 Hormone replacement therapy; Z79.82 Long term (current) use of aspirin; Z79.899 Other long term (current) drug therapy; Z91.048 Other nonmedicinal substance allergy status; Z88.6 Allergy status to analgesic agent; Z88.5 Allergy status to narcotic agent; Z88.8 Allergy status to other drugs, medicaments and biological substances; Z88.1 Allergy status to other antibiotic agents; Z88.0 Allergy status to penicillin; Z88.2 Allergy status to sulfonamides; Z98.1 Arthrodesis status; Z86.73 Personal history of transient ischemic attack (TIA), and cerebral infarction without residual deficits; Z99.89 Dependence on other enabling machines and devices; W06.XXXA Fall from bed, initial encounter
CPT/HCPCS: 70450; 71045; 72125; 73502; 99284

== ENCOUNTER 2021-10-04 09:07 | Emergency (ER) | payer MEDICARE ==
--- NOTE | 2021-10-04 09:41 | ED ---
General Adult HPI - General Chief complaint: Extremity Injury, Lower Stated complaint: Fall/weak Time Seen by Provider: 10/04/21 09:08 Source: patient, EMS Mode of arrival: EMS Limitations: altered mental status - History of Present Illness Initial comments: Dictation was produced using [employer] dictation software. please excuse any grammatical, word or spelling errors. Chief Complaint: Patient is an 86-year-old female presents with daughter for concerns of injury after fall History of Present Illness: Patient is a 86-year-old female she had an unwitnessed fall approximately 3 days ago. She's been complaining of right hip right knee and head pain. Patient denies any loss of consciousness. Patient has a history of dementia and is a poor historian. Daughter states that patient allegedly fell recently. Patient is minimally ambulatory since the fall. She was brought here to make sure she doesn't have any injuries. She does not take anticoagulation medications. Patient has no other complaints at this time. The ROS documented in this emergency department record has been reviewed and confirmed by me. Those systems with pertinent positive or negative responses have been documented in the HPI. All other systems are other negative and/or noncontributory. PHYSICAL EXAM: General Impression: Alert and oriented x3, not in acute distress HEENT: Normocephalic atraumatic, extra-ocular movements intact, pupils equal and reactive to light bilaterally, mucous membranes moist. Cardiovascular: Heart regular rate and rhythm Chest: Able to complete full sentences, no retractions, no tachypnea Abdomen: abdomen soft, non-tender, non-distended, no organomegaly Musculoskeletal: Pulses present and equal in all extremities, no peripheral edema Motor: no focal deficits noted Neurological: CN II-XII grossly intact, no focal motor or sensory deficits noted Skin: Intact with no visualized rashes Psych: Normal affect and mood ED course: She is 86-year-old female presents with right hip right knee and head pain after fall 3 days ago. Vital Signs upon arrival are within acceptable limits. Physical examination is benign. No obvious signs of injury. 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 The x-ray shows no occult fractures. Computed tomography scan of the head and C-spine shows no acute processes. Patient discharged. EKG interpretation: Ventricular rate 59, sinus bradycardia, CA interval 142, QRS 70, QTc 457. No CA prolongation, no QTC prolongation, no ST or T-wave changes noted. EKG compared to 07/27/2020 showing no changes. Overall, this EKG is unremarkable - Related Data Home Medications Medication Instructions Recorded Confirmed Levothyroxine Sodium [Synthroid] 75 mcg PO DAILY 09/10/18 10/04/21 ARIPiprazole [Abilify Maintena] 300 mg PO Q28D 07/27/20 10/04/21 Isosorbide Mononitrate ER [Imdur] 30 mg PO DAILY 07/27/20 10/04/21 Donepezil [Aricept] 10 mg PO HS 10/04/21 10/04/21 Losartan Potassium [Cozaar] 100 mg PO HS 10/04/21 10/04/21 Omeprazole [PriLOSEC] 20 mg PO DAILY PRN 10/04/21 10/04/21 hydrALAZINE HCL 50 mg PO TID 10/04/21 10/04/21 Allergies Allergy/AdvReac Type Severity Reaction Status Date / Time grape [Raisin] Allergy Severe Anaphylaxis Verified 10/04/21 09:17 acetaminophen Allergy Chest Pain Verified 10/04/21 09:17 [From Darvocet-N 100] atorvastatin Allergy Dyspnea Verified 10/04/21 09:17 codeine Allergy Hallucinati Verified 10/04/21 09:17 ons erythromycin base Allergy Chest Pain Verified 10/04/21 09:17 hydrocodone Allergy Chest Pain Verified 10/04/21 09:17 hydromorphone HCl Allergy Dyspnea Verified 10/04/21 09:17 [From Dilaudid] levofloxacin [From Levaquin] Allergy Hallucinati Verified 10/04/21 09:17 ons loratadine Allergy Chest Pain Verified 10/04/21 09:17 meperidine Allergy Chest Pain Verified 10/04/21 09:17 montelukast Allergy Unknown Verified 10/04/21 09:17 morphine Allergy Unknown Verified 10/04/21 09:17 Mushroom Allergy Anaphylaxis Verified 10/04/21 09:17 oxycodone HCl Allergy Hallucinati Verified 10/04/21 09:17 [From OxyContin] ons Penicillins Allergy Unknown Verified 10/04/21 09:17 pentazocine lactate Allergy "BLOOD Verified 10/04/21 09:17 [From Talwin] PRESSURE DROPPED" prednisone Allergy Unknown Verified 10/04/21 09:17 propoxyphene napsylate Allergy Chest Pain Verified 10/04/21 09:17 [From Darvocet-N 100] risperidone [From Risperdal] Allergy Rash/Hives Verified 10/04/21 09:17 tramadol HCl [From Ultram] Allergy Hallucinati Verified 10/04/21 09:17 ons ramipril AdvReac LIGHTHEADED Verified 10/04/21 09:17 NESS sulfamethoxazole AdvReac THRUSH Verified 10/04/21 09:17 [From Bactrim] trimethoprim [From Bactrim] AdvReac THRUSH Verified 10/04/21 09:17 Review of Systems ROS Statement: Those systems with pertinent positive or pertinent negative responses have been documented in the HPI. ROS Other: All systems not noted in ROS Statement are negative. Past Medical History Past Medical History: COPD, CVA/TIA, Dementia, Diabetes Mellitus, Fibromyalgia, Renal Disease, Sleep Apnea/CPAP/BIPAP, Thyroid Disorder Additional Past Medical History / Comment(s): Celiac disease. NIDDMdiet controlled. MILD CVA in 2006. Hypothyroidism. 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 CATARACT.shingles 09/28,uti History of Any Multi-Drug Resistant Organisms: None Reported Past Surgical History: Appendectomy, Cholecystectomy, Hysterectomy, Joint Replacement, Orthopedic Surgery Additional Past Surgical History / Comment(s): TOTAL KARTIK Knees. Cervical fusion; Left Shoulder; Thyroid surgery. CTR. EXC RT CATARACT 12/07/15. Past Anesthesia/Blood Transfusion Reactions: No Reported Reaction Past Psychological History: No Psychological Hx Reported Smoking Status: Never smoker Past Alcohol Use History: None Reported Past Drug Use History: None Reported - Past Family History Father Family Medical History: Cancer Additional Family Medical History / Comment(s): Father at age 79 from lung cancer. Mother Family Medical History: Diabetes Mellitus Additional Family Medical History / Comment(s): Mother at age 78 from complications from diabetes. Brother(s) Family Medical History: Myocardial Infarction ([place]) Additional Family Medical History / Comment(s): Patient has one sister that lives in [place] and she does not know any medical history. General Exam Limitations: altered mental status Course Vital Signs 10/04/21 09:11 Temperature 97.8 F Pulse Rate 62 Respiratory 16 Rate Blood Pressure 184/67 O2 Sat by Pulse 96 Oximetry Disposition Clinical Impression: Hip strain, Knee strain, Head contusion Disposition: HOME SELF-CARE Condition: Good Instructions (If sedation given, give patient instructions): Fall Prevention for Older Adults (ED) Is patient prescribed a controlled substance at d/c from ED?: No Referrals: Kaushik Love [Primary Care Provider] - 1-2 days
--- NOTE | 2021-10-04 10:11 | XR ---
EXAMINATION TYPE: XR knee 4V RT DATE OF EXAM: 10/04/2021 COMPARISON: NONE HISTORY: Pain TECHNIQUE: four views are submitted. FINDINGS: Diffuse osteopenia with extensive postsurgical changes. Vascular calcifications are noted. No definit e acute fracture or dislocation. Soft tissue edema noted. IMPRESSION: 1. No definite acute fracture or dislocation.
--- NOTE | 2021-10-04 10:13 | XR ---
EXAMINATION TYPE: XR Hip RT and AP Pelvis DATE OF EXAM: 10/04/2021 COMPARISON: NONE HISTORY: Pain TECHNIQUE: A single AP view of the pelvis is obtained. Two views of the right hip are obtained. FINDINGS: There is no acute fracture/dislocation evident in the pelvis. Arthropathy of the hips bila terally correlate for femoral acetabular impingement. Degenerative change of the spine. Vascular calc ifications. Diffuse osteopenia. IMPRESSION: 1. Arthropathy correlate for femoral acetabular impingement.
--- NOTE | 2021-10-04 10:21 | CT ---
EXAMINATION TYPE: CT brain mona valentin DATE OF EXAM: 10/04/2021 COMPARISON: 09/22/2020 HISTORY: Fall CT DLP: 1389.[address] of the brain was performed. The ventricles, basal cisterns and sulci overlying the cerebral convexities demonstrate mild enlargem ent. There is no evidence for intracranial hemorrhage or sulcal effacement. There is decreased attenuatio n about the periventricular white matter and deep white matter of both cerebral hemispheres, compatib le with chronic small vessel ischemia. No mass effects are seen. If symptoms persist consider MRI. Osseous calvarium is intact. IMPRESSION: 1. Age related atrophic and chronic small vessel ischemic change without acute intracranial process seen at this time. CT Cervical Spine: Unenhanced CT of the cervical spine was performed with bone and soft tissue window settings submitted . Coronal and sagittal reconstruction is obtained. There is normal alignment and prevertebral soft tissues. No evidence for acute cervical fracture . Scattered degenerative disc disease and spondylosis. Biapical scarring. IMPRESSION: 1. No evidence for acute fracture or subluxation of the cervical spine.
[2021-10-04 11:58] VITALS: BP 189/75; PULSE 60; RESP 12; TEMP 98.1
== END 2021-10-04 12:05 | disposition home or self-care (01) ==
LOC: EC 09:07
DX: S76.011A Strain of muscle, fascia and tendon of right hip, initial encounter (principal); S86.811A Strain of other muscle(s) and tendon(s) at lower leg level, right leg, initial encounter; S00.83XA Contusion of other part of head, initial encounter; J44.9 Chronic obstructive pulmonary disease, unspecified; F03.90 Unspecified dementia, unspecified severity, without behavioral disturbance, psychotic disturbance, mood disturbance, and anxiety; E11.9 Type 2 diabetes mellitus without complications; E07.9 Disorder of thyroid, unspecified; Z88.5 Allergy status to narcotic agent; Z88.0 Allergy status to penicillin; Z88.2 Allergy status to sulfonamides; Z88.1 Allergy status to other antibiotic agents; Z86.73 Personal history of transient ischemic attack (TIA), and cerebral infarction without residual deficits; Z90.49 Acquired absence of other specified parts of digestive tract; Z90.710 Acquired absence of both cervix and uterus; Z96.653 Presence of artificial knee joint, bilateral; W18.30XA Fall on same level, unspecified, initial encounter
CPT/HCPCS: 70450; 72125; 73502; 93005; 99284

== ENCOUNTER 2022-06-17 14:44 | Inpatient (IN) | payer MEDICARE ==
--- NOTE | 2022-06-17 15:32 | ED ---
Altered Mental Status HPI - General Chief Complaint: Altered Mental Status Stated Complaint: failure to thrive Time Seen by Provider: 06/17/22 15:02 Source: EMS Mode of arrival: EMS Limitations: altered mental status - History of Present Illness Initial Comments: This patient has an 86-year-old woman coming to emergency to have evaluation for altered mental status. Patient does reportedly have some underlying dementia, but family noted she was not able to participate in feeding herself today. When I reviewed patient's she states she does not feel well. She is not able to be more specific. She specifically denies having pain. She does admit to having cough. MD Complaint: altered mental status -: hour(s) Associated Symptoms: cough - Related Data Home Medications Medication Instructions Recorded Confirmed Levothyroxine Sodium [Synthroid] 75 mcg PO DAILY 09/10/18 10/04/21 ARIPiprazole [Abilify Maintena] 300 mg PO Q28D 07/27/20 10/04/21 Isosorbide Mononitrate ER [Imdur] 30 mg PO DAILY 07/27/20 10/04/21 Donepezil [Aricept] 10 mg PO HS 10/04/21 10/04/21 Losartan Potassium [Cozaar] 100 mg PO HS 10/04/21 10/04/21 Omeprazole [PriLOSEC] 20 mg PO DAILY PRN 10/04/21 10/04/21 hydrALAZINE HCL 50 mg PO TID 10/04/21 10/04/21 Allergies Allergy/AdvReac Type Severity Reaction Status Date / Time grape [Raisin] Allergy Severe Anaphylaxis Verified 06/17/22 14:50 acetaminophen Allergy Chest Pain Verified 06/17/22 14:50 [From Darvocet-N 100] atorvastatin Allergy Dyspnea Verified 06/17/22 14:50 codeine Allergy Hallucinati Verified 06/17/22 14:50 ons erythromycin base Allergy Chest Pain Verified 06/17/22 14:50 hydrocodone Allergy Chest Pain Verified 06/17/22 14:50 hydromorphone HCl Allergy Dyspnea Verified 06/17/22 14:50 [From Dilaudid] levofloxacin [From Levaquin] Allergy Hallucinati Verified 06/17/22 14:50 ons loratadine Allergy Chest Pain Verified 06/17/22 14:50 meperidine Allergy Chest Pain Verified 06/17/22 14:50 montelukast Allergy Unknown Verified 06/17/22 14:50 morphine Allergy Unknown Verified 06/17/22 14:50 Mushroom Allergy Anaphylaxis Verified 06/17/22 14:50 oxycodone HCl Allergy Hallucinati Verified 06/17/22 14:50 [From OxyContin] ons Penicillins Allergy Unknown Verified 06/17/22 14:50 pentazocine lactate Allergy "BLOOD Verified 06/17/22 14:50 [From Talwin] PRESSURE DROPPED" prednisone Allergy Unknown Verified 06/17/22 14:50 propoxyphene napsylate Allergy Chest Pain Verified 06/17/22 14:50 [From Darvocet-N 100] risperidone [From Risperdal] Allergy Rash/Hives Verified 06/17/22 14:50 tramadol HCl [From Ultram] Allergy Hallucinati Verified 06/17/22 14:50 ons ramipril AdvReac LIGHTHEADED Verified 06/17/22 14:50 NESS sulfamethoxazole AdvReac THRUSH Verified 06/17/22 14:50 [From Bactrim] trimethoprim [From Bactrim] AdvReac THRUSH Verified 06/17/22 14:50 Review of Systems ROS Statement: Those systems with pertinent positive or pertinent negative responses have been documented in the HPI. ROS Other: All systems not noted in ROS Statement are negative. Constitutional: Denies: fever Respiratory: Reports: cough. Denies: dyspnea Cardiovascular: Denies: chest pain Gastrointestinal: Denies: abdominal pain Neurological: Denies: headache Past Medical History Past Medical History: COPD, CVA/TIA, Dementia, Diabetes Mellitus, Fibromyalgia, Renal Disease, Sleep Apnea/CPAP/BIPAP, Thyroid Disorder Additional Past Medical History / Comment(s): Celiac disease. NIDDMdiet contro lled. MILD CVA in 2006. Hypothyroidism. 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 CATARACT.shingles 09/28,uti History of Any Multi-Drug Resistant Organisms: None Reported Past Surgical History: Appendectomy, Cholecystectomy, Hysterectomy, Joint Replacement, Orthopedic Surgery Additional Past Surgical History / Comment(s): TOTAL KARTIK Knees. Cervical fusion; Left Shoulder; Thyroid surgery. CTR. EXC RT CATARACT 12/07/15. Past Anesthesia/Blood Transfusion Reactions: No Reported Reaction Past Psychological History: No Psychological Hx Reported Smoking Status: Never smoker Past Alcohol Use History: None Reported Past Drug Use History: None Reported - Past Family History Father Family Medical History: Cancer Additional Family Medical History / Comment(s): Father at age 79 from lung cancer. Mother Family Medical History: Diabetes Mellitus Additional Family Medical History / Comment(s): Mother at age 78 from complications from diabetes. Brother(s) Family Medical History: Myocardial Infarction ([place]) Additional Family Medical History / Comment(s): Patient has one sister that lives in [place] and she does not know any medical history. General Exam Limitations: altered mental status General appearance: alert, in no apparent distress Head exam: Present: atraumatic, normocephalic Eye exam: Present: normal appearance. Absent: scleral icterus, conjunctival injection ENT exam: Present: mucous membranes dry Neck exam: Present: normal inspection Respiratory exam: Present: normal lung sounds bilaterally. Absent: respiratory distress, wheezes, rales, rhonchi, stridor Cardiovascular Exam: Present: regular rate, normal rhythm, normal heart sounds. Absent: systolic murmur, diastolic murmur, rubs, gallop GI/Abdominal exam: Present: soft. Absent: distended, tenderness, guarding, rebound, rigid, mass Extremities exam: Present: normal inspection, normal capillary refill. Absent: pedal edema, calf tenderness Neurological exam: Present: alert. Absent: oriented X3 (Patient is oriented to person and aware she is in the health care setting not able to state the date.), motor sensory deficit Skin exam: Present: warm, dry, intact, normal color. Absent: rash Course Vital Signs 06/17/22 06/17/22 14:45 14:49 Temperature 99.2 F Pulse Rate 82 Respiratory 18 20 Rate Blood Pressure 112/65 O2 Sat by Pulse 96 Oximetry Disposition Referrals: None,Stated [Primary Care Provider] - 1-2 days
--- NOTE | 2022-06-17 15:35 | XR ---
EXAMINATION TYPE: XR chest 1V portable DATE OF EXAM: 06/17/2022 COMPARISON: 09/22/2020 HISTORY: Altered mental status TECHNIQUE: Single view FINDINGS: There is no heart failure nor confluent pneumonic infiltrate. Costophrenic angles are clear . The bony thorax is intact. IMPRESSION: No active chronic pulmonary disease. No adverse change.
--- NOTE | 2022-06-17 15:44 | CT ---
EXAMINATION TYPE: CT brain wo con DATE OF EXAM: 06/17/2022 COMPARISON: 10/04/2021 HISTORY: Altered mental status CT DLP: 1176.4 mGycm Automated exposure control for dose reduction was used. There is cerebral cortical atrophy. There is no mass effect or midline shift. No sign of intracranial hemorrhage. There is some hypodensity in the periventricular white matter. The calvarium is intact s kull base is intact. IMPRESSION: Cerebral atrophy. Chronic small vessel ischemia. No acute intracranial abnormality. No change.
[2022-06-17 16:29] LABS: Basophils % (A) 0 %; Eosinophils % (A) 0 %; HGB 13.7 gm/dL (11.4-16.0); Lymphocytes # (A) 0.4 k/uL (1.0-4.8); Lymphocytes % (A) 3 %; MCH 28.6 pg (25.0-35.0); MCHC 32.7 g/dL (31.0-37.0); MCV 87.5 fL (80.0-100.0); Monocytes # (A) 0.5 k/uL (0-1.0); Monocytes % (A) 4 %; Neutrophils # (A) 11.8 k/uL (1.3-7.7); Neutrophils % (A) 92 %; Platelet Count 219 k/uL (150-450); RDW 13.9 % (11.5-15.5); WBC 12.8 k/uL (3.8-10.6)
[2022-06-17 16:34] LABS: Albumin 4.5 g/dL (3.5-5.0); Calcium 9.8 mg/dL (8.4-10.2); Potassium 5.2 mmol/L (3.5-5.1); Total Bilirubin 0.4 mg/dL (0.2-1.3); Total Protein 7.9 g/dL (6.3-8.2)
[2022-06-17 16:57] LABS: Glucose,Whole Blood 126 mg/dL (70-110)
[2022-06-17 17:43] LABS: Appearance,Urine Clear (Clear); Bilirubin,Urine Negative (Negative); Blood,Urine Negative (Negative); Color,Urine Yellow; Glucose,Urine (UA) Negative (Negative); Ketones,Urine Negative (Negative); Leukocyte Esterase,Urine Negative (Negative); Nitrite,Urine Negative (Negative); PH, Urine 6.5 (5.0-8.0); Protein,Urine Trace (Negative); Specific Gravity,Urine 1.014 (1.001-1.035); Urobilinogen,Urine <2.0 mg/dL (<2.0)
[2022-06-17] MEDS ORDERED: NALOXONE 0.4 MG/ML 1 ML VIAL IV PRN (17:50)
[2022-06-17] MEDS ORDERED: PANTOPRAZOLE 40 MG TABLET PO PRN (17:53)
[2022-06-17] MEDS: SODIUM CHLORIDE 0.9% 1,000 ML IV SCH (18:13)
[2022-06-17] MEDS ORDERED: hydrALAZINE HCL 25 MG TAB PO STA (21:01)
[2022-06-17] MEDS ORDERED: ACETAMINOPHEN IV (For NPO) 1,000 MG in EMPTY BAG 1 BAG IVPB PRN (22:05)
[2022-06-17] MEDS ORDERED: hydrALAZINE HCL 20 MG/ML 1 ML VIAL IVP STA (22:08)
[2022-06-17] MEDS: hydrALAZINE HCL 50 MG TAB PO SCH (22:34)
[2022-06-17] MEDS: LOSARTAN 50 MG TAB PO SCH (22:34)
[2022-06-18 00:23] LABS: ABG Base Excess 1.1 mmol/L; ABG HCO3 26 mmol/L (21-25); ABG Oxygen Saturation 93.8 % (94-97); ABG PCO2 40 mmHg (35-45); ABG PH 7.42 (7.35-7.45); ABG PO2 69 mmHg (83-108); ABG TCO2 27 mmol/L (19-24); Allen Test Performed? Yes
--- NOTE | 2022-06-18 00:29 | P.HPIM ---
History of Present Illness H&P Date: 06/17/22 The patient is an 86-year-old female with a PMH of dementia, type II DM, hypertension, hypothyroidism who was brought into the emergency room by EMS due to gradually worsening confusion and lethargy. History obtained from the chart and the patient's daughter (Danuta) via phone. She reports that her mother has been eating and drinking less than usual over the past 3-4 days and that she was having difficulty walking earlier today which prompted her to activate EMS. The patient does have a history of baseline dementia although is normally able to ambulate and do some of her ADLs. At time of interview, the patient was somnolent and was not answering any questions. The patient was febrile in the emergency room with T-max 102.3F with laboratory evaluation remarkable for coronavirus PCR positive, BUN 22, creatinine 1.31, and WBC count 12.8. Chest x- ray was unremarkable with CT brain also unremarkable. Review of systems: Unable to obtain due to mental status Physical examination: General: non toxic, no distress, appears at stated age, normal weight Derm: no unusual rashes/lesions, warm Head: atraumatic, normocephalic, symmetric Eyes: EOMI, no lid lag, anicteric sclera, pupils equal round reactive to light ENT: Nose and ears atraumatic Neck: No cervical lymphadenopathy, trachea midline, supple Mouth: no lip lesion, mucus membranes somewhat dry Cardiovascular: S1S2 reg, no murmur, positive dorsalis pedis pulse bilateral, no edema Lungs: Mild scattered rough car, no rales, no accessory muscle use Abdominal: soft, nontender to palpation, no guarding Ext: No gross muscle atrophy, no contractures, unable to assess since patient not following all commands Neuro: Moving all extremities, no gross focal neuro deficits Psych: Somnolent, arouses and answers basic questions with sternal rub Assessment/plan Sepsis, possibly secondary to COVID -Follow-up blood cultures -Zinc, vitamin C, vitamin D -Patient not requiring supplemental oxygen at this time -UA unremarkable -Start Remdesevir -Continue IV fluids Hyperkalemia, likely secondary to poor oral intake -Continue with IV fluids and monitor Chronic kidney disease, at baseline Altered mental status, likely toxic metabolic encephalopathy with baseline dementia in setting of sepsis -Continue with above management Chronic conditions: Type II DM, hypertension, hypothyroidism -Continue with home medications -Insulin sliding scale and blood glucose monitoring DVT prophylaxis -Heparin subcu The patient is admitted with an anticipated greater than 2 midnight stay for evaluation of sepsis CODE STATUS: Full Code Discussed with: Daughter Anticipated discharge date: 2-[address]: Home Past Medical History Past Medical History: COPD, CVA/TIA, Dementia, Diabetes Mellitus, Fibromyalgia, Renal Disease, Sleep Apnea/CPAP/BIPAP, Thyroid Disorder Additional Past Medical History / Comment(s): Celiac disease. NIDDMdiet controlled. MILD CVA in 2006. Hypothyroidism. 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 CATARACT.shingles 09/28,uti History of Any Multi-Drug Resistant Organisms: None Reported Past Surgical History: Appendectomy, Cholecystectomy, Hysterectomy, Joint Repla cement, Orthopedic Surgery Additional Past Surgical History / Comment(s): TOTAL KARTIK Knees. Cervical fusion; Left Shoulder; Thyroid surgery. CTR. EXC RT CATARACT 12/07/15. Past Anesthesia/Blood Transfusion Reactions: No Reported Reaction Past Psychological History: No Psychological Hx Reported Smoking Status: Never smoker Past Alcohol Use History: None Reported Past Drug Use History: None Reported - Past Family History Father Family Medical History: Cancer Additional Family Medical History / Comment(s): Father at age 79 from lung cancer. Mother Family Medical History: Diabetes Mellitus Additional Family Medical History / Comment(s): Mother at age 78 from complications from diabetes. Brother(s) Family Medical History: Myocardial Infarction ([place]) Additional Family Medical History / Comment(s): Patient has one sister that lives in [place] and she does not know any medical history. Medications and Allergies Home Medications Medication Instructions Recorded Confirmed Type Levothyroxine Sodium [Synthroid] 75 mcg PO AC-[id number] 09/10/18 06/17/22 History ARIPiprazole [Abilify Maintena] 300 mg IM Q21D 07/27/20 06/17/22 History Isosorbide Mononitrate ER [Imdur] 30 mg PO DAILY 07/27/20 06/17/22 History Losartan Potassium [Cozaar] 100 mg PO HS 10/04/21 06/17/22 History hydrALAZINE HCL 50 mg PO TID 10/04/21 06/17/22 History ARIPiprazole [Abilify] 5 mg PO DAILY@1700 06/17/22 06/17/22 History Ibuprofen [Motrin Ib] 600 mg PO DAILY PRN 06/17/22 06/17/22 History Omeprazole Magnesium [PriLOSEC OTC] 20 mg PO DAILY PRN 06/17/22 06/17/22 History Allergies Allergy/AdvReac Type Severity Reaction Status Date / Time grape [Raisin] Allergy Severe Anaphylaxis Verified 06/17/22 16:11 amlodipine Allergy Rash/Hives Verified 06/17/22 16:11 & Chest Pain atorvastatin Allergy Dyspnea Verified 06/17/22 16:11 corn Allergy Anaphylaxis Verified 06/17/22 16:11 Corticosteroids Allergy Dyspnea/Chest Verified 06/17/22 16:11 (Glucocorticoids) Pain gabapentin Allergy Unknown Verified 06/17/22 16:11 glimepiride [From DUETACT] Allergy Unknown Verified 06/17/22 16:11 hydromorphone HCl Allergy Dyspnea Verified 06/17/22 16:11 [From Dilaudid] macadamia nut oil Allergy Anaphylaxis Verified 06/17/22 16:11 Mushroom Allergy Anaphylaxis Verified 06/17/22 16:11 oxycodone HCl Allergy Dyspnea & Verified 06/17/22 16:11 [From OxyContin] Hallucinations Penicillins Allergy Rash/Chest Verified 06/17/22 16:11 Pain pentazocine lactate Allergy "Blood Verified 06/17/22 16:11 [From Talwin] Pressure Dropped" pioglitazone [From DUETACT] Allergy Unknown Verified 06/17/22 16:11 risperidone [From Risperdal] Allergy Rash/Hives Verified 06/17/22 16:11 rosuvastatin [From Crestor] Allergy Dyspnea & Verified 06/17/22 16:11 Muscle Cramps tetracycline Allergy Unknown Verified 06/17/22 16:11 codeine AdvReac Hallucinations/Chest Verified 06/17/22 16:11 Pain doxycycline AdvReac Abdominal Verified 06/17/22 16:11 Pain & Muscle Pain erythromycin base AdvReac Chest Pain Verified 06/17/22 16:11 gluten AdvReac Nausea & Verified 06/17/22 16:11 Vomiting & Diarrhea hydrocodone AdvReac Chest Pain Verified 06/17/22 16:11 levofloxacin [From Levaquin] AdvReac Hallucinati Verified 06/17/22 16:11 ons loratadine AdvReac Chest Pain Verified 06/17/22 16:11 meperidine AdvReac Chest Pain Verified 06/17/22 16:11 montelukast AdvReac Unknown Verified 06/17/22 16:11 morphine AdvReac Hallucinati Verified 06/17/22 16:11 ons prednisone AdvReac Chest Pain Verified 06/17/22 16:11 propoxyphene napsylate AdvReac Chest Pain Verified 06/17/22 16:11 [From Darvocet-N 100] ramipril AdvReac "Lightheade Verified 06/17/22 16:11 dness" sulfamethoxazole AdvReac Causes Verified 06/17/22 16:11 [From Bactrim] Thrush tramadol HCl [From Ultram] AdvReac Hallucinati Verified 06/17/22 16:11 ons trimethoprim [From Bactrim] AdvReac Causes Verified 06/17/22 16:11 Thrush cottonwood Allergy Anaphylaxis Uncoded 06/17/22 16:11 pickles Allergy Anaphylaxis Uncoded 06/17/22 16:11 Physical Exam Vitals: Vital Signs Temp Pulse Pulse Resp BP BP Pulse Ox 06/17/22 21:00 102.3 F H 77 18 194/64 95 06/17/22 19:54 72 174/86 06/17/22 19:23 100.7 F H 76 18 184/68 95 06/17/22 14:49 20 06/17/22 14:45 99.2 F 82 18 112/65 96 Intake and Output 06/17/22 06/17/22 06/18/22 14:59 22:59 06:59 Other: Weight 68.039 kg Results CBC & Chem 7: 06/17/22 15:45 06/17/22 15:45 Labs: Abnormal Lab Results - Last 24 Hours (Table) 06/17/22 06/17/22 06/17/22 Range/Units 15:00 15:45 15:45 WBC 12.8 H (3.8-10.6) k/uL Neutrophils # 11.8 H (1.3-7.7) k/uL Lymphocytes # 0.4 L (1.0-4.8) k/uL Sodium 135 L (137-145) mmol/L Potassium 5.2 H (3.5-5.1) mmol/L BUN 22 H (7-17) mg/dL Creatinine 1.31 H (0.52-1.04) mg/dL Glucose 129 H (74-99) mg/dL POC Glucose (mg/dL) (70-110) mg/dL Urine Protein (Negative) Coronavirus (PCR) Detected A (Not Detectd) 06/17/22 06/17/22 Range/Units 16:41 16:55 WBC (3.8-10.6) k/uL Neutrophils # (1.3-7.7) k/uL Lymphocytes # (1.0-4.8) k/uL Sodium (137-145) mmol/L Potassium (3.5-5.1) mmol/L BUN (7-17) mg/dL Creatinine (0.52-1.04) mg/dL Glucose (74-99) mg/dL POC Glucose (mg/dL) 126 H (70-110) mg/dL Urine Protein Trace H (Negative) Coronavirus (PCR) (Not Detectd)
[2022-06-18] MEDS ORDERED: CALCIUM GLUCONATE IN NACL 2 GM in SALINE 1 100ML.BAG IVPB ONE (02:09)
[2022-06-18] MEDS ORDERED: SODIUM POLYSTYRENE SULFONATE 30 GM/120 ML BOTTLE RECTAL STA (02:09)
[2022-06-18 07:23] LABS: Glucose,Whole Blood 110 mg/dL (70-110)
[2022-06-18] MEDS ORDERED: REMDESIVIR 200 MG in SODIUM CHLORIDE 0.9% 250 ML IVPB ONE (08:00)
[2022-06-18] MEDS: INSULIN ASPART (NovoLOG) 100 UNIT/ML VIAL SQ SCH ×4 (08:08→20:34)
[2022-06-18] MEDS: ZINC SULFATE 220 MG CAP PO SCH (09:14)
[2022-06-18] MEDS: ASCORBIC ACID 500 MG TAB PO SCH (09:14)
[2022-06-18] MEDS: ISOSORBIDE MONONITRATE ER 30 MG TAB.ER.24H PO SCH (09:14)
[2022-06-18] MEDS: CHOLECALCIFEROL 125 MCG (5000 IU) TABLET PO SCH (09:14)
[2022-06-18] MEDS: SODIUM CHLORIDE 0.9% 1,000 ML IV SCH (09:15)
[2022-06-18] MEDS: hydrALAZINE HCL 50 MG TAB PO SCH ×3 (09:15→23:15)
[2022-06-18] MEDS: LEVOTHYROXINE 75 MCG TAB PO SCH (09:15)
[2022-06-18] MEDS: HEPARIN SODIUM,PORCINE/PF 5,000 UNIT/0.5 ML SYRINGE SQ SCH ×3 (09:15→23:15)
[2022-06-18 11:44] LABS: Glucose,Whole Blood 118 mg/dL (70-110)
--- NOTE | 2022-06-18 13:36 | P.PN ---
Subjective Progress Note Date: 06/18/22 Patient has dementia and is a poor historian. Continues to report some nausea and vomiting. Continues to report abdominal pain. Gen: awake, alert HEENT: normocephalic, atraumatic, good hearing acuity, moist mucous membranes Resp: good air exchange, breathing comfortably with no accessory muscle use CVS: good distal perfusion x 4, GI: soft, NTTP, ND : no SPT, no CVAT, mejia catheter not present MSK: no pitting edema, no clubbing Neuro: non-focal, moving all extremities Psych: cooperative, euthymic mood Assessment/plan: Sepsis, possibly secondary to COVID -Follow-up blood cultures -Zinc, vitamin C, vitamin D -Patient not requiring supplemental oxygen at this time -UA unremarkable -Start Remdesevir -consulted pulmonology for consideration of continuation for 3 days -Started dexamethasone -Patient is empirically on ceftriaxone -Procalcitonin pending. -Continue IV fluids Hyperkalemia, likely secondary to poor oral intake -Continue with IV fluids and monitor Chronic kidney disease, at baseline Altered mental status, likely toxic metabolic encephalopathy with baseline dementia in setting of sepsis -Continue with above management Chronic conditions: Type II DM, hypertension, hypothyroidism -Continue with home medications -Insulin sliding scale and blood glucose monitoring DVT prophylaxis -Heparin subcu The patient is admitted with an anticipated greater than 2 midnight stay for evaluation of sepsis CODE STATUS: Full Code Discussed with: Daughter Anticipated discharge date: 2-[address]: Home Objective - Vital Signs Vital signs: Vital Signs Temp 98.2 F 06/18/22 08:00 Pulse 74 06/18/22 08:00 Resp 18 06/18/22 08:00 BP 190/70 06/18/22 08:00 Pulse Ox 94 L 06/18/22 08:00 FiO2 Intake & Output 06/17/22 06/18/22 06/18/22 18:59 06:59 18:59 Weight 68.039 kg 68.039 kg Other: Voiding Method External Catheter External Catheter - Labs CBC & Chem 7: 06/17/22 15:45 06/17/22 15:45 Labs: Abnormal Lab Results - Last 24 Hours (Table) 06/17/22 06/17/22 06/17/22 Range/Units 15:00 15:45 15:45 WBC 12.8 H (3.8-10.6) k/uL Neutrophils # 11.8 H (1.3-7.7) k/uL Lymphocytes # 0.4 L (1.0-4.8) k/uL ABG pO2 (83-108) mmHg ABG HCO3 (21-25) mmol/L ABG Total CO2 (19-24) mmol/L ABG O2 Saturation (94-97) % Sodium 135 L (137-145) mmol/L Potassium 5.2 H (3.5-5.1) mmol/L BUN 22 H (7-17) mg/dL Creatinine 1.31 H (0.52-1.04) mg/dL Glucose 129 H (74-99) mg/dL POC Glucose (mg/dL) (70-110) mg/dL Urine Protein (Negative) Coronavirus (PCR) Detected A (Not Detectd) 06/17/22 06/17/22 06/18/22 Range/Units 16:41 16:55 00:21 WBC (3.8-10.6) k/uL Neutrophils # (1.3-7.7) k/uL Lymphocytes # (1.0-4.8) k/uL ABG pO2 69 L (83-108) mmHg ABG HCO3 26 H (21-25) mmol/L ABG Total CO2 27 H (19-24) mmol/L ABG O2 Saturation 93.8 L (94-97) % Sodium (137-145) mmol/L Potassium (3.5-5.1) mmol/L BUN (7-17) mg/dL Creatinine (0.52-1.04) mg/dL Glucose (74-99) mg/dL POC Glucose (mg/dL) 126 H (70-110) mg/dL Urine Protein Trace H (Negative) Coronavirus (PCR) (Not Detectd) 06/18/22 Range/Units 11:42 WBC (3.8-10.6) k/uL Neutrophils # (1.3-7.7) k/uL Lymphocytes # (1.0-4.8) k/uL ABG pO2 (83-108) mmHg ABG HCO3 (21-25) mmol/L ABG Total CO2 (19-24) mmol/L ABG O2 Saturation (94-97) % Sodium (137-145) mmol/L Potassium (3.5-5.1) mmol/L BUN (7-17) mg/dL Creatinine (0.52-1.04) mg/dL Glucose (74-99) mg/dL POC Glucose (mg/dL) 118 H (70-110) mg/dL Urine Protein (Negative) Coronavirus (PCR) (Not Detectd)
[2022-06-18] MEDS: DEXAMETHASONE SOD PHOSPHATE 10 MG/ML 1 ML VIAL IVP SCH (16:25)
[2022-06-18] MEDS: ARIPiprazole 5 MG TAB PO SCH (16:25)
[2022-06-18 16:47] LABS: Glucose,Whole Blood 166 mg/dL (70-110)
[2022-06-18 20:32] LABS: Glucose,Whole Blood 155 mg/dL (70-110)
[2022-06-18] MEDS: LOSARTAN 50 MG TAB PO SCH (20:34)
[2022-06-19] MEDS: SODIUM CHLORIDE 0.9% 1,000 ML IV SCH ×2 (00:26→11:14)
[2022-06-19] MEDS: ISOSORBIDE MONONITRATE ER 30 MG TAB.ER.24H PO SCH (08:50)
[2022-06-19] MEDS: LEVOTHYROXINE 75 MCG TAB PO SCH (08:51)
[2022-06-19] MEDS: hydrALAZINE HCL 50 MG TAB PO SCH ×3 (08:51→20:45)
[2022-06-19] MEDS: CHOLECALCIFEROL 125 MCG (5000 IU) TABLET PO SCH (08:51)
[2022-06-19] MEDS: INSULIN ASPART (NovoLOG) 100 UNIT/ML VIAL SQ SCH ×4 (08:51→20:43)
[2022-06-19] MEDS: ZINC SULFATE 220 MG CAP PO SCH (08:51)
[2022-06-19] MEDS: ASCORBIC ACID 500 MG TAB PO SCH (08:51)
[2022-06-19] MEDS: HEPARIN SODIUM,PORCINE/PF 5,000 UNIT/0.5 ML SYRINGE SQ SCH ×2 (08:51→15:20)
[2022-06-19 08:54] LABS: Glucose,Whole Blood 106 mg/dL (70-110)
[2022-06-19] MEDS: DEXAMETHASONE SOD PHOSPHATE 10 MG/ML 1 ML VIAL IVP SCH (08:59)
[2022-06-19 09:13] LABS: Basophils # (A) 0.01 X 10*3/uL (0.00-0.10); Basophils % (A) 0.1 %; Eosinophils # (A) 0 X 10*3/uL (0.04-0.35); Eosinophils % (A) 0 %; HCT 47.1 % (37.2-46.3); HGB 14.9 g/dL (12.0-15.0); Immature Grans, Automated 0.3 %; Lymphocytes # (A) 0.98 X 10*3/uL (0.90-5.00); Lymphocytes % (A) 12.7 %; MCH 28.3 pg (27.0-32.0); MCHC 31.6 g/dL (32.0-37.0); MCV 89.4 fL (80.0-97.0); Mean Platelet Volume 10.9 fL (9.5-12.2); Monocytes # (A) 0.32 X 10*3/uL (0.20-1.00); Monocytes % (A) 4.2 %; NRBC Per 100 WBC 0 /100 WBCS (0.0-0.0); Neutrophils # (A) 6.37 X 10*3/uL (1.80-7.70); Neutrophils % (A) 82.7 %; Platelet Count 208 X 10*3/uL (140-440); RBC 5.27 X 10*6/uL (4.10-5.20); RDW 14.5 % (11.5-14.5)
[2022-06-19 09:31] LABS: Magnesium 2.2 mg/dL (1.5-2.4)
[2022-06-19 10:09] LABS: African American GFR (CKD) 59.9 (60.0-200.0); Anion Gap 13.9 mmol/L (10.00-18.00); BUN/Creat Ratio 22.7 Ratio (12.00-20.00); Blood Urea Nitrogen 22.7 mg/dL (9.0-27.0); Carbon Dioxide 18.1 mmol/L (20.0-27.5); Non-African American GFR(CKD) 51.7 (60.0-200.0); Potassium 5.2 mmol/L (3.5-5.5)
[2022-06-19] MEDS: IOPAMIDOL CONTRAST (ORAL USE) VIAL PO PRN ×2 (10:37→11:23)
[2022-06-19 11:18] LABS: Glucose,Whole Blood 142 mg/dL (70-110)
--- NOTE | 2022-06-19 11:54 | P.PN ---
Subjective Progress Note Date: 06/19/22 Patient has dementia and is a poor historian. Continues to report some nausea and vomiting. Continues to report abdominal pain. Gen: awake, alert HEENT: normocephalic, atraumatic, good hearing acuity, moist mucous membranes Resp: good air exchange, breathing comfortably with no accessory muscle use CVS: good distal perfusion x 4, GI: soft, NTTP, ND : no SPT, no CVAT, mejia catheter not present MSK: no pitting edema, no clubbing Neuro: non-focal, moving all extremities Psych: cooperative, euthymic mood Assessment/plan: Sepsis, possibly secondary to COVID Abdominal Pain Nausea and Diarrhea -Follow-up blood cultures -Zinc, vitamin C, vitamin D -Patient not requiring supplemental oxygen at this time -UA unremarkable -Start Remdesevir -consulted pulmonology for consideration of continuation for 3 days -Started dexamethasone -Patient is empirically on ceftriaxone -Procalcitonin pending. -Continue IV fluids -CT Abd/Pelvis with contrast is pending. Hyperkalemia, likely secondary to poor oral intake -Continue with IV fluids and monitor Chronic kidney disease, at baseline Altered mental status, likely toxic metabolic encephalopathy with baseline dementia in setting of sepsis -Continue with above management Chronic conditions: Type II DM, hypertension, hypothyroidism -Continue with home medications -Insulin sliding scale and blood glucose monitoring DVT prophylaxis -Heparin subcu The patient is admitted with an anticipated greater than 2 midnight stay for evaluation of sepsis CODE STATUS: Full Code Discussed with: Daughter Anticipated discharge date: 2-[address]: Home Objective - Vital Signs Vital signs: Vital Signs Temp 98.8 F 06/19/22 07:50 Pulse 77 06/19/22 07:50 Resp 16 06/19/22 07:50 BP 157/63 06/19/22 07:50 Pulse Ox 93 L 06/19/22 07:50 FiO2 Intake & Output 06/18/22 06/19/22 06/19/22 18:59 06:59 18:59 Other: Voiding Method External Catheter # Voids 1 1 # Bowel Movements 2 - Labs CBC & Chem 7: 06/19/22 05:41 06/19/22 05:41 Labs: Abnormal Lab Results - Last 24 Hours (Table) 06/18/22 06/18/22 06/19/22 Range/Units 16:46 20:31 05:41 RBC 5.27 H (4.10-5.20) X 10*6/uL Hct 47.1 H (37.2-46.3) % MCHC 31.6 L (32.0-37.0) g/dL Eosinophils # 0 L (0.04-0.35) X 10*3/uL Carbon Dioxide (20.0-27.5) mmol/L Est GFR (CKD-EPI)AfAm (60.0-200.0) Est GFR (CKD-EPI)NonAf (60.0-200.0) BUN/Creatinine Ratio (12.00-20.00) Ratio Glucose (70-110) mg/dL POC Glucose (mg/dL) 166 H 155 H (70-110) mg/dL 06/19/22 06/19/22 Range/Units 05:41 11:17 RBC (4.10-5.20) X 10*6/uL Hct (37.2-46.3) % MCHC (32.0-37.0) g/dL Eosinophils # (0.04-0.35) X 10*3/uL Carbon Dioxide 18.1 L (20.0-27.5) mmol/L Est GFR (CKD-EPI)AfAm 59.9 L (60.0-200.0) Est GFR (CKD-EPI)NonAf 51.7 L (60.0-200.0) BUN/Creatinine Ratio 22.70 H (12.00-20.00) Ratio Glucose 119 H (70-110) mg/dL POC Glucose (mg/dL) 142 H (70-110) mg/dL Microbiology - Last 24 Hours (Table) 06/17/22 15:45 Blood Culture - Preliminary Blood No Growth after 24 hours
--- NOTE | 2022-06-19 13:15 | CT ---
EXAMINATION TYPE: CT abdomen pelvis w con DATE OF EXAM: 06/19/2022 COMPARISON: 04/14/2020 INDICATION: covid, abd pain, diarrhea DLP: 918.4 mGycm, Automated exposure control for dose reduction was used. CONTRAST: 80 mL of Isovue 370. Study performed with Oral Contrast TECHNIQUE: Axial images were obtained from above the diaphragm to the pubic rami in the axial plane a t 5 mm thick sections. Reconstructed images are reviewed on the computer in the coronal plane. FINDINGS: Limited CT sections are obtained the lung bases. The lung bases are clear. CT ABDOMEN: Subcutaneous emphysema is evident. This could be related to injections. Liver: Normal Spleen: Normal Pancreas: Normal Adrenal glands: The adrenal glands are normal. Gallbladder: Not identified. Kidneys: No masses are evident. No hydronephrosis is present. No cysts are present. Delayed images were obtained through the kidneys, which remain unremarkable. Aorta: Vascular calcification is within the aorta. Inferior vena cava: Normal. CT PELVIS: Loops of bowel within the abdomen and pelvis are normal. There are loops of bowel which are incom pletely distended or lack oral contrast limiting their evaluation. Distended loops of bowel appear un remarkable. Appendix: Normal as visualized. Urinary bladder: Normal. Genitourinary structures: Uterus and ovaries are not identified. Osseous structures: No suspicious lytic or sclerotic lesions are evident. Degenerative changes are at the bilateral hips. Sacroiliac joint vacuum phenomenon is present. Degenerative disc changes and fac et hypertrophy is present within the lumbar spine IMPRESSIONS: 1. No suspicious acute changes CT abdomen and pelvis. 2. Small amount subcutaneous emphysema is present could be related to subcutaneous injections.
[2022-06-19 16:10] VITALS: BMI 23.5
--- NOTE | 2022-06-19 16:16 | P.CNPUL ---
History of Present Illness Consult date: 06/19/22 Chief complaint: COVID 19 History of present illness: A 86-year-old female patient, who is resting comfortably in bed, a poor historian who claims to have been vaccinated for COVID 19. The patient has dementia, hypertension, hypothyroidism, diabetes mellitus as comorbid conditions. The patient has been noted to have diminished oral intake and more difficulty with mobility and walking. She came into the hospital. He'll Covid 19 PCR came back positive. Creatinine is at 1.4 with BNF 22. Chest x-ray shows no acute abnormalities and a CAT scan of the brain was also negative. That she is being given Decadron. She is on room air oxygen. He is also on accommodation vitamin C and vitamin D and zinc. No nausea. No vomiting. No diarrhea. No abdominal pain. No other significant events. The pro calcitonin Level Is low on the rest enzymatic markers have not been checked. Review of Systems ROS unobtainable: due to mental status Past Medical History Past Medical History: COPD, CVA/TIA, Dementia, Diabetes Mellitus, Fibromyalgia, Renal Disease, Sleep Apnea/CPAP/BIPAP, Thyroid Disorder Additional Past Medical History / Comment(s): Celiac disease. NIDDMdiet controlled. MILD CVA in 2006. Hypothyroidism. 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 CATARACT.shingles 09/28,uti History of Any Multi-Drug Resistant Organisms: None Reported Past Surgical History: Appendectomy, Cholecystectomy, Hysterectomy, Joint Replacement, Orthopedic Surgery Additional Past Surgical History / Comment(s): TOTAL KARTIK Knees. Cervical fusion; Left Shoulder; Thyroid surgery. CTR. EXC RT CATARACT 12/07/15. Past Anesthesia/Blood Transfusion Reactions: No Reported Reaction Past Psychological History: No Psychological Hx Reported Smoking Status: Never smoker Past Alcohol Use History: None Reported Past Drug Use History: None Reported - Past Family History Father Family Medical History: Cancer Additional Family Medical History / Comment(s): Father at age 79 from lung cancer. Mother Family Medical History: Diabetes Mellitus Additional Family Medical History / Comment(s): Mother at age 78 from complications from diabetes. Brother(s) Family Medical History: Myocardial Infarction ([place]) Additional Family Medical History / Comment(s): Patient has one sister that lives in [place] and she does not know any medical history. Medications and Allergies Home Medications Medication Instructions Recorded Confirmed Type Levothyroxine Sodium [Synthroid] 75 mcg PO AC-BRKFST 09/10/18 06/17/22 History ARIPiprazole [Abilify Maintena] 300 mg IM Q21D 07/27/20 06/17/22 History Isosorbide Mononitrate ER [Imdur] 30 mg PO DAILY 07/27/20 06/17/22 History Losartan Potassium [Cozaar] 100 mg PO HS 10/04/21 06/17/22 History hydrALAZINE HCL 50 mg PO TID 10/04/21 06/17/22 History ARIPiprazole [Abilify] 5 mg PO DAILY@1700 06/17/22 06/17/22 History Ibuprofen [Motrin Ib] 600 mg PO DAILY PRN 06/17/22 06/17/22 History Omeprazole Magnesium [PriLOSEC OTC] 20 mg PO DAILY PRN 06/17/22 06/17/22 History Allergies Allergy/AdvReac Type Severity Reaction Status Date / Time grape [Raisin] Allergy Severe Anaphylaxis Verified 06/17/22 16:11 amlodipine Allergy Rash/Hives Verified 06/17/22 16:11 & Chest Pain atorvastatin Allergy Dyspnea Verified 06/17/22 16:11 corn Allergy Anaphylaxis Verified 06/17/22 16:11 Corticosteroids Allergy Dyspnea/Chest Verified 06/17/22 16:11 (Glucocorticoids) Pain gabapentin Allergy Unknown Verified 06/17/22 16:11 glimepiride [From DUETACT] Allergy Unknown Verified 06/17/22 16:11 hydromorphone HCl Allergy Dyspnea Verified 06/17/22 16:11 [From Dilaudid] macadamia nut oil Allergy Anaphylaxis Verified 06/17/22 16:11 Mushroom Allergy Anaphylaxis Verified 06/17/22 16:11 oxycodone HCl Allergy Dyspnea & Verified 06/17/22 16:11 [From OxyContin] Hallucinations Penicillins Allergy Rash/Chest Verified 06/17/22 16:11 Pain pentazocine lactate Allergy "Blood Verified 06/17/22 16:11 [From Talwin] Pressure Dropped" pioglitazone [From DUETACT] Allergy Unknown Verified 06/17/22 16:11 risperidone [From Risperdal] Allergy Rash/Hives Verified 06/17/22 16:11 rosuvastatin [From Crestor] Allergy Dyspnea & Verified 06/17/22 16:11 Muscle Cramps tetracycline Allergy Unknown Verified 06/17/22 16:11 codeine AdvReac Hallucinations/Chest Verified 06/17/22 16:11 Pain doxycycline AdvReac Abdominal Verified 06/17/22 16:11 Pain & Muscle Pain erythromycin base AdvReac Chest Pain Verified 06/17/22 16:11 gluten AdvReac Nausea & Verified 06/17/22 16:11 Vomiting & Diarrhea hydrocodone AdvReac Chest Pain Verified 06/17/22 16:11 levofloxacin [From Levaquin] AdvReac Hallucinati Verified 06/17/22 16:11 ons loratadine AdvReac Chest Pain Verified 06/17/22 16:11 meperidine AdvReac Chest Pain Verified 06/17/22 16:11 montelukast AdvReac Unknown Verified 06/17/22 16:11 morphine AdvReac Hallucinati Verified 06/17/22 16:11 ons prednisone AdvReac Chest Pain Verified 06/17/22 16:11 propoxyphene napsylate AdvReac Chest Pain Verified 06/17/22 16:11 [From Darvocet-N 100] ramipril AdvReac "Lightheade Verified 06/17/22 16:11 dness" sulfamethoxazole AdvReac Causes Verified 06/17/22 16:11 [From Bactrim] Thrush tramadol HCl [From Ultram] AdvReac Hallucinati Verified 06/17/22 16:11 ons trimethoprim [From Bactrim] AdvReac Causes Verified 06/17/22 16:11 Thrush cottonwood Allergy Anaphylaxis Uncoded 06/17/22 16:11 pickles Allergy Anaphylaxis Uncoded 06/17/22 16:11 Physical Exam Vitals: Vital Signs Temp Pulse Resp BP Pulse Ox 06/19/22 13:24 98.5 F 78 17 147/65 97 06/19/22 07:50 98.8 F 77 16 157/63 93 L 06/19/22 01:54 97.8 F 85 16 175/65 93 L 06/18/22 20:30 98.8 F 71 16 162/53 96 Intake and Output 06/19/22 06/19/22 06/19/22 06:59 14:59 22:59 Other: # Voids 1 # Bowel Movements 2 Weight 68.039 kg General: non toxic, no distress, appears at stated age, normal weight Derm: no unusual rashes/lesions, warm Head: atraumatic, normocephalic, symmetric Eyes: EOMI, no lid lag, anicteric sclera, pupils equal round reactive to light ENT: Nose and ears atraumatic Neck: No cervical lymphadenopathy, trachea midline, supple Mouth: no lip lesion, mucus membranes somewhat dry Cardiovascular: S1S2 reg, no murmur, positive dorsalis pedis pulse bilateral, no edema Lungs: Mild scattered rough car, no rales, no accessory muscle use Abdominal: soft, nontender to palpation, no guarding Ext: No gross muscle atrophy, no contractures, unable to assess since patient not following all commands Neuro: Moving all extremities, no gross focal neuro deficits Psych: Somnolent, arouses and answers basic questions with sternal rub Results - Laboratory Findings CBC and BMP: 06/19/22 05:41 06/19/22 05:41 ABG ABG pH 7.42 (7.35-7.45) 06/18/22 00:21 ABG pCO2 40 mmHg (35-45) 06/18/22 00:21 ABG pO2 69 mmHg (83-108) L 06/18/22 00:21 ABG O2 Saturation 93.8 % (94-97) L 06/18/22 00:21 Abnormal lab findings: Abnormal Labs 06/17/22 06/17/22 06/17/22 15:00 15:45 15:45 WBC 12.8 H RBC Hct MCHC Neutrophils # 11.8 H Lymphocytes # 0.4 L Eosinophils # ABG pO2 ABG HCO3 ABG Total CO2 ABG O2 Saturation Sodium 135 L Potassium 5.2 H Carbon Dioxide BUN 22 H Creatinine 1.31 H Est GFR (CKD-EPI)AfAm Est GFR (CKD-EPI)NonAf BUN/Creatinine Ratio Glucose 129 H POC Glucose (mg/dL) Urine Protein Coronavirus (PCR) Detected A 06/17/22 06/17/22 06/18/22 16:41 16:55 00:21 WBC RBC Hct MCHC Neutrophils # Lymphocytes # Eosinophils # ABG pO2 69 L ABG HCO3 26 H ABG Total CO2 27 H ABG O2 Saturation 93.8 L Sodium Potassium Carbon Dioxide BUN Creatinine Est GFR (CKD-EPI)AfAm Est GFR (CKD-EPI)NonAf BUN/Creatinine Ratio Glucose POC Glucose (mg/dL) 126 H Urine Protein Trace H Coronavirus (PCR) 06/18/22 06/18/22 06/18/22 11:42 16:46 20:31 WBC RBC Hct MCHC Neutrophils # Lymphocytes # Eosinophils # ABG pO2 ABG HCO3 ABG Total CO2 ABG O2 Saturation Sodium Potassium Carbon Dioxide BUN Creatinine Est GFR (CKD-EPI)AfAm Est GFR (CKD-EPI)NonAf BUN/Creatinine Ratio Glucose POC Glucose (mg/dL) 118 H 166 H 155 H Urine Protein Coronavirus (PCR) 06/19/22 06/19/22 06/19/22 05:41 05:41 11:17 WBC RBC 5.27 H Hct 47.1 H MCHC 31.6 L Neutrophils # Lymphocytes # Eosinophils # 0 L ABG pO2 ABG HCO3 ABG Total CO2 ABG O2 Saturation Sodium Potassium Carbon Dioxide 18.1 L BUN Creatinine Est GFR (CKD-EPI)AfAm 59.9 L Est GFR (CKD-EPI)NonAf 51.7 L BUN/Creatinine Ratio 22.70 H Glucose 119 H POC Glucose (mg/dL) 142 H Urine Protein Coronavirus (PCR) - Diagnostic Findings Chest x-ray: image reviewed Assessment and Plan Plan: Acute Covid 19 infection, possible vaccination Dementia Hypertension Hypothyroidism History of fibromyalgia History of CVA back in 2006 without any residual deficits, Celiac disease Plan Clinically stable Pro calcitonin level is low Workup for some nausea and diarrhea per medicine. A CAT scan of the abdomen and pelvis was ordered and the findings are benign Check inflammatory markers including LDH and CRP Heparin subcu for prophylaxis May discontinue steroids as there is no clear indication for this patient being treated with systemic steroids. Respiratory status is stable. monitor the serum bicarb and replaced Deficits if needed
[2022-06-19 17:24] LABS: Glucose,Whole Blood 129 mg/dL (70-110)
[2022-06-19] MEDS: ARIPiprazole 5 MG TAB PO SCH (17:24)
[2022-06-19 19:38] LABS: Glucose,Whole Blood 131 mg/dL (70-110)
[2022-06-19] MEDS: LOSARTAN 50 MG TAB PO SCH (20:44)
[2022-06-20] MEDS: HEPARIN SODIUM,PORCINE/PF 5,000 UNIT/0.5 ML SYRINGE SQ SCH ×2 (00:32→08:45)
[2022-06-20 02:20] VITALS: RESP 17
[2022-06-20 05:20] VITALS: TEMP 98.1
[2022-06-20] MEDS: SODIUM CHLORIDE 0.9% 1,000 ML IV SCH ×2 (05:22→08:47)
[2022-06-20 07:01] LABS: Glucose,Whole Blood 89 mg/dL (70-110)
[2022-06-20] MEDS: INSULIN ASPART (NovoLOG) 100 UNIT/ML VIAL SQ SCH ×2 (08:44→12:09)
[2022-06-20] MEDS: ZINC SULFATE 220 MG CAP PO SCH (08:46)
[2022-06-20] MEDS: CHOLECALCIFEROL 125 MCG (5000 IU) TABLET PO SCH (08:46)
[2022-06-20] MEDS: ASCORBIC ACID 500 MG TAB PO SCH (08:46)
[2022-06-20] MEDS: DEXAMETHASONE SOD PHOSPHATE 10 MG/ML 1 ML VIAL IVP SCH (08:46)
[2022-06-20] MEDS: hydrALAZINE HCL 50 MG TAB PO SCH (08:46)
[2022-06-20] MEDS: ISOSORBIDE MONONITRATE ER 30 MG TAB.ER.24H PO SCH (08:46)
[2022-06-20] MEDS: LEVOTHYROXINE 75 MCG TAB PO SCH (08:46)
[2022-06-20 08:53] VITALS: BP 157/63; PULSE 86
[2022-06-20 11:57] LABS: Glucose,Whole Blood 142 mg/dL (70-110)
--- NOTE | 2022-06-20 12:19 | P.DS ---
Providers Date of admission: 06/17/22 17:50 Expected date of discharge: 06/20/22 Attending physician: Kayla Greenfield MD Consults: 06/18/22 13:34 Consult Physician Routine Consulting Provider: Donte Martínez Consult Reason/Comments: consideration of continuing remdesivir; COVID-19 Do you want consulting provider notified?: Yes Primary care physician: Stated None Hospital Course: The patient is an 86-year-old female with a PMH of dementia, type II DM, hypertension, hypothyroidism who was brought into the emergency room by EMS due to gradually worsening confusion and lethargy. History obtained from the chart and the patient's daughter (Danuta) via phone. She reports that her mother has been eating and drinking less than usual over the past 3-4 days and that she was having difficulty walking earlier today which prompted her to activate EMS. The patient does have a history of baseline dementia although is normally able to ambulate and do some of her ADLs. At time of interview, the patient was somnolent and was not answering any questions. The patient was febrile in the emergency room with T-max 102.3F with laboratory evaluation remarkable for coronavirus PCR positive, BUN 22, creatinine 1.31, and WBC count 12.8. Chest x- ray was unremarkable with CT brain also unremarkable. Patient did not require any supplemental oxygen during her hospitalization. She did meet sepsis criteria likely related to COVID-19. Blood cultures are negative at 48 hours. She was initially started on Reclast severe and Decadron which was discontinued by pulmonology due to no oxygen requirements. Her hyperkalemia and acute kidney injury resolved with IV hydration. She did have abdominal pain but CT AP and UA was negative. Initial plans was to discharge the patient to [facility] facility as per PT and OT recommendations but family decided to take the patient home. Patient was seen and examined. Patient reported no complaints. She reported feeling back to baseline. All antibiotics were discontinued as there were no signs of acute infection. No treatment for COVID-19 was administered due to no oxygen requirements. She is advised to follow-up with her PCP within 1-2 days of discharge. She is advised to restart her home medication. Patient verbalized understanding of the plan. Pertinent studies include chest x-ray, brain CT, CT abdomen and pelvis. Gen: awake, alert HEENT: normocephalic, atraumatic, good hearing acuity, moist mucous membranes Resp: good air exchange, breathing comfortably with no accessory muscle use CVS: good distal perfusion x 4, GI: soft, NTTP, ND : no SPT, no CVAT, mejia catheter not present MSK: no pitting edema, no clubbing Neuro: non-focal, moving all extremities Psych: cooperative, euthymic mood Discharge diagnosis: Sepsis related to COVID-19 Abdominal pain with nausea and diarrhea Hyperkalemia, resolved Chronic kidney disease, at baseline Altered mental status, likely toxic metabolic encephalopathy with baseline dementia in setting of sepsis Chronic conditions: Type II DM, hypertension, hypothyroidism This complex discharge took about 35 minutes to complete. Patient Condition at Discharge: Stable Plan - Discharge Summary Discharge Rx Participant: Yes New Discharge Prescriptions: Continue Levothyroxine Sodium [Synthroid] 75 mcg PO AC-[facility] ARIPiprazole [Abilify Maintena] 300 mg IM Q21D Isosorbide Mononitrate ER [Imdur] 30 mg PO DAILY hydrALAZINE HCL 50 mg PO TID Losartan Potassium [Cozaar] 100 mg PO HS Omeprazole Magnesium [PriLOSEC OTC] 20 mg PO DAILY PRN PRN Reason: Heartburn ARIPiprazole [Abilify] 5 mg PO DAILY@1700 Discontinued Ibuprofen [Motrin Ib] 600 mg PO DAILY PRN PRN Reason: Pain Discharge Medication List Levothyroxine Sodium [Synthroid] 75 mcg PO AC-BRKFST 09/10/18 [History] ARIPiprazole [Abilify Maintena] 300 mg IM Q21D 07/27/20 [History] Isosorbide Mononitrate ER [Imdur] 30 mg PO DAILY 07/27/20 [History] Losartan Potassium [Cozaar] 100 mg PO HS 10/04/21 [History] hydrALAZINE HCL 50 mg PO TID 10/04/21 [History] ARIPiprazole [Abilify] 5 mg PO DAILY@1700 06/17/22 [History] Omeprazole Magnesium [PriLOSEC OTC] 20 mg PO DAILY PRN 06/17/22 [History] Follow up Appointment(s)/Referral(s): None,Stated [Primary Care Provider] - 1-2 days Activity/Diet/Wound Care/Special Instructions: Diet: Cardiac Follow-up with PCP within 1-2 days of discharge. Take all medications as advised. Come back to the ED for worsening mentation, chest pain, shortness breath or palpitations or lightheadedness. Discharge Disposition: HOME SELF-CARE
--- NOTE | 2022-06-20 13:00 | P.PN ---
Subjective Progress Note Date: 06/20/22 A 86-year-old female patient, who is resting comfortably in bed, a poor historian who claims to have been vaccinated for COVID 19. The patient has dementia, hypertension, hypothyroidism, diabetes mellitus as comorbid conditions. The patient has been noted to have diminished oral intake and more difficulty with mobility and walking. She came into the hospital. He'll Covid 19 PCR came back positive. Creatinine is at 1.4 with BNF 22. Chest x-ray shows no acute abnormalities and a CAT scan of the brain was also negative. That she is being given Decadron. She is on room air oxygen. He is also on accommodation vitamin C and vitamin D and zinc. No nausea. No vomiting. No diarrhea. No abdominal pain. No other significant events. The pro calcitonin Level Is low on the rest enzymatic markers have not been checked. 06/20/2022, the patient is doing extremely well. No complaints. The plan is to discharge this patient home. She remains on room air oxygen. She is active. She is tolerating her diet. No altered in mentation. No nausea or vomiting. No diarrhea. No respiratory distress. Objective - Vital Signs Vital signs: Vital Signs Temp 98.1 F 06/20/22 05:19 Pulse 86 06/20/22 08:52 Resp 17 06/20/22 05:19 BP 157/63 06/20/22 08:52 Pulse Ox 98 06/20/22 08:52 FiO2 Intake & Output 06/19/22 06/20/22 06/20/22 18:59 06:59 18:59 Output Total 200 100 Balance -200 -100 Weight 68.039 kg Output: Urine 200 100 Other: Voiding Method External Catheter # Voids 3 - Exam General: non toxic, no distress, appears at stated age, normal weight Derm: no unusual rashes/lesions, warm Head: atraumatic, normocephalic, symmetric Eyes: EOMI, no lid lag, anicteric sclera, pupils equal round reactive to light ENT: Nose and ears atraumatic Neck: No cervical lymphadenopathy, trachea midline, supple Mouth: no lip lesion, mucus membranes somewhat dry Cardiovascular: S1S2 reg, no murmur, positive dorsalis pedis pulse bilateral, no edema Lungs: Mild scattered rough car, no rales, no accessory muscle use Abdominal: soft, nontender to palpation, no guarding Ext: No gross muscle atrophy, no contractures, unable to assess since patient not following all commands Neuro: Moving all extremities, no gross focal neuro deficits Psych: Somnolent, arouses and answers basic questions with sternal rub - Labs CBC & Chem 7: 06/19/22 05:41 06/19/22 05:41 Labs: Abnormal Lab Results - Last 24 Hours (Table) 06/19/22 06/19/22 06/20/22 Range/Units 17:23 19:37 11:55 POC Glucose (mg/dL) 129 H 131 H 142 H (70-110) mg/dL Microbiology - Last 24 Hours (Table) 06/17/22 15:45 Blood Culture - Preliminary Blood No Growth after 48 hours Assessment and Plan Plan: Acute Covid 19 infection, possible vaccination Dementia Hypertension Hypothyroidism History of fibromyalgia History of CVA back in 2006 without any residual deficits, Celiac disease Plan Clinically stable Pro calcitonin level is low Workup for some nausea and diarrhea per medicine. A CAT scan of the abdomen and pelvis was ordered and the findings are benign Check inflammatory markers including LDH and CRP Heparin subcu for prophylaxis May discontinue steroids as there is no clear indication for this patient being treated with systemic steroids. Respiratory status is stable. The patient is clear for discharge from the pulmonary standpoint. Follow-up with the PCP.
== END 2022-06-20 13:40 | disposition home or self-care (01) | DRG 871 ==
LOC: EC 14:44 → 4SSUR 17:50 → OBSVTOIN 17:50 → 4SSUR 19:30
PROVIDERS: ADMIT Internal Medicine; ATTEND Internal Medicine
PROC: XW033E5 Introduction of Remdesivir Anti-infective into Peripheral Vein, Percutaneous Approach, New Technology Group 5 (ICD-10-PCS; principal; 2022-06-17)
DX: A41.89 Other specified sepsis (principal); G92.8 Other toxic encephalopathy; U07.1 COVID-19; N17.9 Acute kidney failure, unspecified; R62.7 Adult failure to thrive; E03.9 Hypothyroidism, unspecified; E11.22 Type 2 diabetes mellitus with diabetic chronic kidney disease; E87.5 Hyperkalemia; F03.90 Unspecified dementia, unspecified severity, without behavioral disturbance, psychotic disturbance, mood disturbance, and anxiety; N18.9 Chronic kidney disease, unspecified; Z79.890 Hormone replacement therapy; I12.9 Hypertensive chronic kidney disease with stage 1 through stage 4 chronic kidney disease, or unspecified chronic kidney disease; J44.9 Chronic obstructive pulmonary disease, unspecified; K90.0 Celiac disease; M79.7 Fibromyalgia; Z98.41 Cataract extraction status, right eye; Z79.899 Other long term (current) drug therapy; Z86.73 Personal history of transient ischemic attack (TIA), and cerebral infarction without residual deficits; Z98.1 Arthrodesis status; Z95.1 Presence of aortocoronary bypass graft; Z90.49 Acquired absence of other specified parts of digestive tract; Z90.710 Acquired absence of both cervix and uterus; Z88.8 Allergy status to other drugs, medicaments and biological substances; Z91.02 Food additives allergy status; Z88.1 Allergy status to other antibiotic agents; Z88.5 Allergy status to narcotic agent; Z91.018 Allergy to other foods; Z88.0 Allergy status to penicillin; Z88.2 Allergy status to sulfonamides; Z91.048 Other nonmedicinal substance allergy status
CPT/HCPCS: 36415; 36600; 70450; 71045; 74177; 80048; 80053; 81003; 82805; 83735; 84145; 84484; 85025; 87040; 87635; 93005

== ENCOUNTER 2022-11-26 16:26 | Emergency (ER) | payer MEDICARE ==
[2022-11-26 16:38] VITALS: RESP 18; TEMP 98.6
--- NOTE | 2022-11-26 16:46 | ED ---
Fall HPI - General Chief Complaint: Fall Stated Complaint: fall - neck injury Time Seen by Provider: 11/26/22 16:29 Source: patient, EMS, RN notes reviewed Mode of arrival: EMS - History of Present Illness Initial Comments: Patient is an 87-year-old female presenting via EMS from [facility] on [facility] after being found on the ground for on a witnessed fall. She is complaining of "spinal pain but is unable to specifically indicate where in her spine she hurts. She denies pain elsewhere. She does have a significant dementia history with baseline orientation anal 1 which she is currently at. Reports from EMS and [facility] on the [place] deny any other concerns or complaints regarding patient and patient is resting comfortably in the bed at this time with c-collar intact. In addition to her dementia history she has a past medical history significant for CVA, COPD, sleep apnea, hypothyroidism, uterine cancer and diabetes. - Related Data Home Medications Medication Instructions Recorded Confirmed Levothyroxine Sodium [Synthroid] 75 mcg PO DAILY@0600 09/10/18 11/26/22 Isosorbide Mononitrate ER [Imdur] 30 mg PO DAILY 07/27/20 11/26/22 Losartan Potassium [Cozaar] 100 mg PO HS 10/04/21 11/26/22 hydrALAZINE HCL 50 mg PO TID@0900,1300,2100 10/04/21 11/26/22 ARIPiprazole [Abilify] 5 mg PO DAILY@1700 06/17/22 11/26/22 Omeprazole Magnesium [PriLOSEC OTC] 20 mg PO DAILY@0600 06/17/22 11/26/22 Aspirin EC [Ecotrin Low Dose] 81 mg PO DAILY 11/12/22 11/26/22 Ibuprofen [Motrin Ib] 200 mg PO Q8H PRN 11/12/22 11/26/22 clonazePAM [KlonoPIN] 0.5 mg PO BID PRN 11/26/22 11/26/22 Previous Rx's Medication Instructions Recorded Benztropine Mesylate [Cogentin] 0.5 mg PO BID tab 11/15/22 Cyanocobalamin [Vitamin B-12] 1,000 mcg PO DAILY tab 11/15/22 atenoloL [Tenormin] 25 mg PO DAILY tab 11/15/22 Allergies Allergy/AdvReac Type Severity Reaction Status Date / Time grape [Raisin] Allergy Severe Anaphylaxis Verified 11/26/22 16:56 amlodipine Allergy Rash/Hives Verified 11/26/22 16:56 & Chest Pain atorvastatin Allergy Dyspnea Verified 11/26/22 16:56 corn Allergy Anaphylaxis Verified 11/26/22 16:56 Corticosteroids Allergy Dyspnea/Chest Verified 11/26/22 16:56 (Glucocorticoids) Pain gabapentin Allergy Unknown Verified 11/26/22 16:56 glimepiride [From DUETACT] Allergy Unknown Verified 11/26/22 16:56 hydromorphone HCl Allergy Dyspnea Verified 11/26/22 16:56 [From Dilaudid] macadamia nut oil Allergy Anaphylaxis Verified 11/26/22 16:56 Mushroom Allergy Anaphylaxis Verified 11/26/22 16:56 oxycodone HCl Allergy Dyspnea & Verified 11/26/22 16:56 [From OxyContin] Hallucinations Penicillins Allergy Rash/Chest Verified 11/26/22 16:56 Pain pentazocine lactate Allergy "Blood Verified 11/26/22 16:56 [From Talwin] Pressure Dropped" pioglitazone [From DUETACT] Allergy Unknown Verified 11/26/22 16:56 risperidone [From Risperdal] Allergy Rash/Hives Verified 11/26/22 16:56 rosuvastatin [From Crestor] Allergy Dyspnea & Verified 11/26/22 16:56 Muscle Cramps tetracycline Allergy Unknown Verified 11/26/22 16:56 codeine AdvReac Hallucinations/Chest Verified 11/26/22 16:56 Pain doxycycline AdvReac Abdominal Verified 11/26/22 16:56 Pain & Muscle Pain erythromycin base AdvReac Chest Pain Verified 11/26/22 16:56 gluten AdvReac Nausea & Verified 11/26/22 16:56 Vomiting & Diarrhea hydrocodone AdvReac Chest Pain Verified 11/26/22 16:56 levofloxacin [From Levaquin] AdvReac Hallucinati Verified 11/26/22 16:56 ons loratadine AdvReac Chest Pain Verified 11/26/22 16:56 meperidine AdvReac Chest Pain Verified 11/26/22 16:56 montelukast AdvReac Unknown Verified 11/26/22 16:56 morphine AdvReac Hallucinati Verified 11/26/22 16:56 ons prednisone AdvReac Chest Pain Verified 11/26/22 16:56 propoxyphene napsylate AdvReac Chest Pain Verified 11/26/22 16:56 [From Darvocet-N 100] ramipril AdvReac "Lightheade Verified 11/26/22 16:56 dness" sulfamethoxazole AdvReac Causes Verified 11/26/22 16:56 [From Bactrim] Thrush tramadol HCl [From Ultram] AdvReac Hallucinati Verified 11/26/22 16:56 ons trimethoprim [From Bactrim] AdvReac Causes Verified 11/26/22 16:56 Thrush cottonwood Allergy Anaphylaxis Uncoded 11/26/22 16:56 pickles Allergy Anaphylaxis Uncoded 11/26/22 16:56 Review of Systems ROS Statement: Those systems with pertinent positive or pertinent negative responses have been documented in the HPI. ROS Other: All systems not noted in ROS Statement are negative. Past Medical History Past Medical History: Cancer, COPD, CVA/TIA, Dementia, Diabetes Mellitus, Fibromyalgia, Renal Disease, Sleep Apnea/CPAP/BIPAP, Thyroid Disorder Additional Past Medical History / Comment(s): Celiac disease. NIDDMdiet controlled. TIA in 2006. Hypothyroidism. 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 CATARACT/Macular Degeneration. Shingles 09/28. Uterine CA 1966 History of Any Multi-Drug Resistant Organisms: None Reported Past Surgical History: Appendectomy, Cholecystectomy, Hysterectomy, Joint Replacement, Orthopedic Surgery Additional Past Surgical History / Comment(s): TOTAL KARTIK Knees. Cervical fusion; Left Shoulder; Thyroid surgery. CTR. bilateral cataracts 12/07/15. Past Anesthesia/Blood Transfusion Reactions: No Reported Reaction Past Psychological History: No Psychological Hx Reported Smoking Status: Never smoker Past Alcohol Use History: None Reported Past Drug Use History: None Reported - Past Family History Father Family Medical History: Cancer Additional Family Medical History / Comment(s): Father at age 79 from lung cancer. Mother Family Medical History: Diabetes Mellitus Additional Family Medical History / Comment(s): Mother at age 78 from complications from diabetes. Brother(s) Family Medical History: Myocardial Infarction (MT) Additional Family Medical History / Comment(s): Patient has one sister that lives in [place] and she does not know any medical history. General Exam - General Exam Comments Initial Comments: GENERAL: No acute distress, well developed, well nourished. HEENT: Normocephalic, atraumatic. Pupils equal, round, reactive to light. Moist mucous membranes. Hard c-collar in place. LUNGS: No respiratory distress. Clear to auscultation, no adventitious sounds, no use of accessory muscles. HEART: Regular rate and rhythm systolic murmur without diastolic murmur, rub, or gallop. ABDOMEN: Normal bowel sounds. Soft, non-tender, non-distended. BACK: Normal inspection. EXTREMITIES: No edema. No tenderness. Moves all extremities. NEUROLOGIC: Alert & oriented x 1. CN II-XII grossly intact. PSYCHIATRIC: Flat affect and behavior. DERMATOLOGIC: Healing mid lower abdominal ecchymosis noted otherwise skin intact without any noted lacerations or abrasions. Limitations: altered mental status Course Vital Signs 11/26/22 16:32 Temperature 98.6 F Pulse Rate 63 Respiratory 18 Rate Blood Pressure 165/74 O2 Sat by Pulse 97 Oximetry Medical Decision Making - Medical Decision Making Was pt. sent in by a medical professional or institution (, PA, TURNING SANDER OPERATOR, urgent care, hospital, or half-way...) When possible be specific @ -[facility] Did you speak to anyone other than the patient for history (EMS, parent, family, police, friend...)? What history was obtained from this source @ -No Did you review nursing and triage notes (agree or disagree)? Why? @ -I reviewed and agree with nursing and triage notes Were old charts reviewed (outside hosp., previous admission, EMS record, old EKG, old radiological studies, urgent care reports/EKG's, half-way records)? Report findings @ -I reviewed [facility] incident report, EMS report and records sent over with patient from [facility]. Differential Diagnosis (chest pain, altered mental status, abdominal pain women, abdominal pain men, vaginal bleeding, weakness, fever, dyspnea, syncope, headache, dizziness, GI bleed, back pain, seizure, CVA, palpatations, mental health, musculoskeletal)? @ -Differential Musculoskeletal Muscular strain, contusion, ligament sprain, fracture, arthritis, septic arthritis, bursitis, cellulitis, muscle spasm, nerve compression, DVT, arterial occlusion, herpes zoster, electrolyte abnormality, tumor.... This is not meant to be in all inclusive list EKG interpreted by me (3pts min.). @ -None done X-rays interpreted by me (1pt min.). @ -None done CT interpreted by me (1pt min.). @ -CT brain and cervical spine without contrast: Cerebral atrophy, no acute intracranial process including any intracranial hemorrhage, mass or acute ischemia. Cervical spine with degenerative disc disease no fracture or subluxation. U/S interpreted by me (1pt. min.). @ -None done What testing was considered but not performed or refused? (CT, X-rays, U/S, labs)? Why? @ -None What meds were considered but not given or refused? Why? @ -Analgesics considered but deferred due to resting comfortably. Did you discuss the management of the patient with other professionals (professionals i.e. , PA, TURNING SANDER OPERATOR, lab, RT, psych nurse, drug abuse social worker, dog track kennel manager, teacher, chief communications officer, rn case management)? Give summary @ -No Was smoking cessation discussed for >3mins.? @ -No Was critical care preformed (if so, how long)? @ -No Were there social determinants of health that impacted care today? How? (Brianne elessness, low income, unemployed, alcoholism, drug addiction, transportation, low edu. Level, literacy, decrease access to med. care, custodial, rehab)? @ -No Was there de-escalation of care discussed even if they declined (Discuss DNR or withdrawal of care, Hospice)? DNR status @ -No What co-morbidities impacted this encounter? (DM, HTN, Smoking, COPD, CAD, Cancer, CVA, ARF, Chemo, Hep., AIDS, mental health diagnosis, sleep apnea, morbid obesity)? @ -None Was patient admitted / discharged? Hospital course, mention meds given and route, prescriptions, significant lab abnormalities, going to OR and other pertinent info. @ -87-year-old female presented to the emergency room via EMS after unwitnessed fall at her half-way. Complaining of "spinal pain" with c-collar intact will obtain CT of brain and cervical spine. No other injuries. Vital signs normal. At baseline mentation. Will obtain CT of brain and cervical spine. No indication for other diagnostic imaging or laboratory studies. Patient with dementia and CVA with recurrent fall history. Computed tomography scan negative for acute abnormalities of the brain or cervical spine. Will clear cervical spine and arrange transfer back to [facility] advising fall precaution prevention. Questions and concerns discussed with daughter at bedside. Will discharge back to [facility] in stable condition with continued fall precautions for recurrent falls in the elderly. Undiagnosed new problem with uncertain prognosis? @ -No Drug Therapy requiring intensive monitoring for toxicity (Heparin, Nitro, Insulin, Cardizem)? @ -No Were any procedures done? @ -No Diagnosis/symptom? @ -Fall Acute, or Chronic, or Acute on Chronic? @ -Acute Uncomplicated (without systemic symptoms) or Complicated (systemic symptoms)? @ -Uncomplicated Side effects of treatment? @ -No Exacerbation, Progression, or Severe Exacerbation? @ -No Poses a threat to life or bodily function? How? (Chest pain, USA, MT, pneumonia, PE, COPD, DKA, ARF, appy, cholecystitis, CVA, Diverticulitis, Homicidal, Suicidal, threat to staff... and all critical care pts) @ -No. Case discussed with Dr. Nicholson. - Radiology Data Radiology results: report reviewed, image reviewed Disposition Clinical Impression: Fall Disposition: HOME SELF-CARE Condition: Stable Instructions (If sedation given, give patient instructions): Fall Prevention for Older Adults (ED) Additional Instructions: Please maintain safety with fall precautions and close monitoring. Please return to the Emergency Department if symptoms worsen or any other concerns. Is patient prescribed a controlled substance at d/c from ED?: No Referrals: Delmar Vizcaino MD [Primary Care Provider] - 1-2 days Time of Disposition: 17:37
--- NOTE | 2022-11-26 17:23 | CT ---
EXAMINATION TYPE: CT brain sharonine wo con DATE OF EXAM: 11/26/2022 COMPARISON: 11/12/2022 CT brain HISTORY: fall CT DLP: 1479 mGycm Automated exposure control for dose reduction was used. Images of the brain and cervical spine obtained with no contrast. There is cerebral cortical atrophy. There is no mass effect or midline shift. No sign of intracranial hemorrhage. There is mild patchy hypodensity in the periventricular white matter. Calvarium is intac t. The cervical vertebra have normal alignment. There is degenerative disc space narrowing at C5-6 and C 6-7 with spurring of the endplates. There is a minimal subluxation at C4-5. There is mild cervical mu ltilevel facet arthropathy. IMPRESSION: Cerebral atrophy and chronic white matter changes. Brain unchanged compared to old exam. Multilevel cervical spondylotic changes. No fracture.
[2022-11-26 18:04] VITALS: BP 149/68; PULSE 68
== END 2022-11-26 18:39 | disposition home or self-care (01) ==
LOC: EC 16:26
DX: S19.9XXA Unspecified injury of neck, initial encounter (principal); J44.9 Chronic obstructive pulmonary disease, unspecified; E11.9 Type 2 diabetes mellitus without complications; E07.9 Disorder of thyroid, unspecified; Z86.73 Personal history of transient ischemic attack (TIA), and cerebral infarction without residual deficits; Z88.2 Allergy status to sulfonamides; Z91.018 Allergy to other foods; Z88.5 Allergy status to narcotic agent; Z88.0 Allergy status to penicillin; Z88.8 Allergy status to other drugs, medicaments and biological substances; Z91.048 Other nonmedicinal substance allergy status; Z79.890 Hormone replacement therapy; Z79.899 Other long term (current) drug therapy; Z79.82 Long term (current) use of aspirin; W06.XXXA Fall from bed, initial encounter; Y92.009 Unspecified place in unspecified non-institutional (private) residence as the place of occurrence of the external cause
CPT/HCPCS: 70450; 72125; 99284

== ENCOUNTER 2022-11-30 16:11 | Emergency (ER) | payer MEDICARE ==
[2022-11-30 16:17] LABS: Glucose,Whole Blood 105 mg/dL (70-110)
[2022-11-30 16:23] VITALS: TEMP 98.1
[2022-11-30] MEDS ORDERED: SODIUM CHLORIDE 0.9% 1,000 ML IV STA (16:33)
--- NOTE | 2022-11-30 16:48 | ED ---
General Adult HPI - General Chief complaint: Altered Mental Status Stated complaint: AMS Time Seen by Provider: 11/30/22 16:14 Source: patient, EMS, RN notes reviewed Mode of arrival: EMS Limitations: altered mental status - History of Present Illness Initial comments: Patient is a pleasant 87-year-old female presenting to the emergency department from [facility] in [facility] for drowsiness. Symptoms have been occurring the past 3 days. Patient has had 3 recent falls. Patient denies any injury or pain. Patient was found again on the floor today. Patient is a poor historian and offers little history. Unclear if patient could've had a syncopal episode. Patient denies headache or neck pain. No new weakness. - Related Data Home Medications Medication Instructions Recorded Confirmed Levothyroxine Sodium [Synthroid] 75 mcg PO DAILY@0600 09/10/18 11/30/22 Isosorbide Mononitrate ER [Imdur] 30 mg PO DAILY@0900 07/27/20 11/30/22 Losartan Potassium [Cozaar] 100 mg PO HS@209910/04/21 11/30/22 hydrALAZINE HCL 50 mg PO TID@0900,1300,209910/04/21 11/30/22 ARIPiprazole [Abilify] 5 mg PO DAILY@1700 06/17/22 11/30/22 Omeprazole Magnesium [PriLOSEC OTC] 20 mg PO DAILY@0600 06/17/22 11/30/22 Aspirin EC [Ecotrin Low Dose] 81 mg PO DAILY@0900 11/12/22 11/30/22 Ibuprofen [Motrin Ib] 200 mg PO Q8H PRN 11/12/22 11/30/22 clonazePAM [KlonoPIN] 0.5 mg PO BID PRN 11/26/22 11/30/22 Benztropine Mesylate [Cogentin] 0.5 mg PO BID@0900,2100 11/30/22 11/30/22 Cyanocobalamin [Vitamin B-12] 1,000 mcg PO DAILY@0900 11/30/22 11/30/22 atenoloL [Tenormin] 25 mg PO DAILY@0900 11/30/22 11/30/22 Allergies Allergy/AdvReac Type Severity Reaction Status Date / Time grape [Raisin] Allergy Severe Anaphylaxis Verified 11/30/22 16:39 amlodipine Allergy Rash/Hives Verified 11/30/22 16:39 & Chest Pain atorvastatin Allergy Dyspnea Verified 11/30/22 16:39 corn Allergy Anaphylaxis Verified 11/30/22 16:39 Corticosteroids Allergy Dyspnea/Chest Verified 11/30/22 16:39 (Glucocorticoids) Pain gabapentin Allergy Unknown Verified 11/30/22 16:39 glimepiride [From DUETACT] Allergy Unknown Verified 11/30/22 16:39 hydromorphone HCl Allergy Dyspnea Verified 11/30/22 16:39 [From Dilaudid] macadamia nut oil Allergy Anaphylaxis Verified 11/30/22 16:39 Mushroom Allergy Anaphylaxis Verified 11/30/22 16:39 oxycodone HCl Allergy Dyspnea & Verified 11/30/22 16:39 [From OxyContin] Hallucinations Penicillins Allergy Rash/Chest Verified 11/30/22 16:39 Pain pentazocine lactate Allergy "Blood Verified 11/30/22 16:39 [From Talwin] Pressure Dropped" pioglitazone [From DUETACT] Allergy Unknown Verified 11/30/22 16:39 risperidone [From Risperdal] Allergy Rash/Hives Verified 11/30/22 16:39 rosuvastatin [From Crestor] Allergy Dyspnea & Verified 11/30/22 16:39 Muscle Cramps tetracycline Allergy Unknown Verified 11/30/22 16:39 codeine AdvReac Hallucinations/Chest Verified 11/30/22 16:39 Pain doxycycline AdvReac Abdominal Verified 11/30/22 16:39 Pain & Muscle Pain erythromycin base AdvReac Chest Pain Verified 11/30/22 16:39 gluten AdvReac Nausea & Verified 11/30/22 16:39 Vomiting & Diarrhea hydrocodone AdvReac Chest Pain Verified 11/30/22 16:39 levofloxacin [From Levaquin] AdvReac Hallucinati Verified 11/30/22 16:39 ons loratadine AdvReac Chest Pain Verified 11/30/22 16:39 meperidine AdvReac Chest Pain Verified 11/30/22 16:39 montelukast AdvReac Unknown Verified 11/30/22 16:39 morphine AdvReac Hallucinati Verified 11/30/22 16:39 ons prednisone AdvReac Chest Pain Verified 11/30/22 16:39 propoxyphene napsylate AdvReac Chest Pain Verified 11/30/22 16:39 [From Darvocet-N 100] ramipril AdvReac "Lightheade Verified 11/30/22 16:39 dness" sulfamethoxazole AdvReac Causes Verified 11/30/22 16:39 [From Bactrim] Thrush tramadol HCl [From Ultram] AdvReac Hallucinati Verified 11/30/22 16:39 ons trimethoprim [From Bactrim] AdvReac Causes Verified 11/30/22 16:39 Thrush cottonwood Allergy Anaphylaxis Uncoded 11/30/22 16:39 pickles Allergy Anaphylaxis Uncoded 11/30/22 16:39 Review of Systems ROS Statement: Those systems with pertinent positive or pertinent negative responses have been documented in the HPI. ROS Other: All systems not noted in ROS Statement are negative. Constitutional: Denies: fever Eyes: Denies: eye pain ENT: Denies: ear pain Respiratory: Denies: cough Cardiovascular: Denies: chest pain Endocrine: Denies: fatigue Gastrointestinal: Denies: abdominal pain Neurological: Reports: as per HPI Past Medical History Past Medical History: Cancer, COPD, CVA/TIA, Dementia, Diabetes Mellitus, Fibromyalgia, Renal Disease, Sleep Apnea/CPAP/BIPAP, Thyroid Disorder Additional Past Medical History / Comment(s): Celiac disease. NIDDMdiet controlled. TIA in 2006. Hypothyroidism. 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 CATARACT/Macular Degeneration. Shingles 09/28. Uterine CA 1966 History of Any Multi-Drug Resistant Organisms: None Reported Past Surgical History: Appendectomy, Cholecystectomy, Hysterectomy, Joint Replacement, Orthopedic Surgery Additional Past Surgical History / Comment(s): TOTAL KARTIK Knees. Cervical fusion; Left Shoulder; Thyroid surgery. CTR. bilateral cataracts 12/07/15. Past Anesthesia/Blood Transfusion Reactions: No Reported Reaction Past Psychological History: No Psychological Hx Reported Smoking Status: Never smoker Past Alcohol Use History: None Reported Past Drug Use History: None Reported - Past Family History Father Family Medical History: Cancer Additional Family Medical History / Comment(s): Father at age 79 from lung cancer. Mother Family Medical History: Diabetes Mellitus Additional Family Medical History / Comment(s): Mother at age 78 from complications from diabetes. Brother(s) Family Medical History: Myocardial Infarction (CT) Additional Family Medical History / Comment(s): Patient has one sister that lives in [place] and she does not know any medical history. General Exam Limitations: altered mental status General appearance: in no apparent distress, other (Drowsy but arousable to voi ce) Head exam: Present: atraumatic Eye exam: Present: normal appearance, PERRL, EOMI ENT exam: Present: mucous membranes dry Neck exam: Present: normal inspection. Absent: tenderness, meningismus Respiratory exam: Present: normal lung sounds bilaterally Cardiovascular Exam: Present: bradycardia GI/Abdominal exam: Present: soft. Absent: tenderness Extremities exam: Present: normal inspection. Absent: pedal edema, calf tenderness Neurological exam: Present: altered, CN II-XII intact. Absent: motor sensory deficit Expanded Neurological exam: Present: inattentive, protecting the airway Patient oriented to: Present: person Cranial nerves: EOM's Intact: Normal Motor strength exam: RUE: 4, LUE: 4, RLE: 2/1, LLE: 3 Eye Response: (3) open to voice Motor Response: (6) obeys commands Verbal Response: (4) confused conversation Psychiatric exam: Present: flat affect Skin exam: Present: normal color Course Vital Signs 11/30/22 11/30/22 16:19 18:26 Temperature 98.1 F Pulse Rate 52 L 55 L Respiratory 18 20 Rate Blood Pressure 177/72 162/65 O2 Sat by Pulse 99 98 Oximetry EKG Findings - EKG Results: EKG: interpreted by ERMD, normal axis, normal QRS, normal ST/T EKG shows: bradycardia, atrial fibrillation Medical Decision Making - Medical Decision Making Was pt. sent in by a medical professional or institution (, PA, CUSTOM STUDIO COORDINATOR, urgent care, hospital, or halfway...) When possible be specific @ -nursing facility Did you speak to anyone other than the patient for history (EMS, parent, family, police, friend...)? What history was obtained from this source @ -family Did you review nursing and triage notes (agree or disagree)? Why? @ -I reviewed and agree with nursing and triage notes Were old charts reviewed (outside hosp., previous admission, EMS record, old EKG, old radiological studies, urgent care reports/EKG's, halfway records)? Report findings @ -No old charts were reviewed Differential Diagnosis (chest pain, altered mental status, abdominal pain women, abdominal pain men, vaginal bleeding, weakness, fever, dyspnea, syncope, head ache, dizziness, GI bleed, back pain, seizure, CVA, palpatations, mental health)? @ -not applicable EKG interpreted by me (3pts min.). @ -As above X-rays interpreted by me (1pt min.). @ -cxr shows atlectasis CT interpreted by me (1pt min.). @ -report reviewed U/S interpreted by me (1pt. min.). @ -None done What testing was considered but not performed or refused? (CT, X-rays, U/S, labs)? Why? @ -None What meds were considered but not given or refused? Why? @ -None Did you discuss the management of the patient with other professionals (professionals i.e. , PA, CUSTOM STUDIO COORDINATOR, lab, RT, psych nurse, director of social services, supervisor [employer], teacher, youth probation officer, hospice case manager)? Give summary @ -No Was smoking cessation discussed for >3mins.? @ -No Was critical care preformed (if so, how long)? @ -No Were there social determinants of health that impacted care today? How? (Homelessness, low income, unemployed, alcoholism, drug addiction, transportation, low edu. Level, literacy, decrease access to med. care, care home, rehab)? @ -No Was there de-escalation of care discussed even if they declined (Discuss DNR or withdrawal of care, Hospice)? DNR status @ -No What co-morbidities impacted this encounter? (DM, HTN, Smoking, COPD, CAD, Cancer, CVA, ARF, Chemo, Hep., AIDS, mental health diagnosis, sleep apnea, morbid obesity)? @ -None Was patient admitted / discharged? Hospital course, mention meds given and route, prescriptions, significant lab abnormalities, going to OR and other pertinent info. @ -Pt reevaluated and unchanged. family states pt has been like this for weeks and requests D/c. she is made aware this may continue or worsen but still requests d/c Undiagnosed new problem with uncertain prognosis? @ -No Drug Therapy requiring intensive monitoring for toxicity (Heparin, Nitro, Insulin, Cardizem)? @ -No Were any procedures done? @ -No Diagnosis/symptom? @ -[fatigue Acute, or Chronic, or Acute on Chronic? @ -acute on chronic Uncomplicated (without systemic symptoms) or Complicated (systemic symptoms)? @ -default Side effects of treatment? @ -No Exacerbation, Progression, or Severe Exacerbation? @ -No Poses a threat to life or bodily function? How? (Chest pain, USA, CT, pneumonia, PE, COPD, DKA, ARF, appy, cholecystitis, CVA, Diverticulitis, Homicidal, [place] icidal, threat to staff... and all critical care pts) @ -No - Lab Data Result diagrams: 11/30/22 16:47 11/30/22 16:47 Lab Results 11/30/22 11/30/22 11/30/22 Range/Units 16:15 16:47 16:47 WBC 8.7 (3.8-10.6) k/uL RBC 4.43 (3.80-5.40) m/uL Hgb 12.7 (11.4-16.0) gm/dL Hct 38.8 (34.0-46.0) % MCV 87.7 (80.0-100.0) fL MCH 28.6 (25.0-35.0) pg MCHC 32.6 (31.0-37.0) g/dL RDW 14.2 (11.5-15.5) % Plt Count 220 (150-450) k/uL MPV 7.9 Neutrophils % 73 % Lymphocytes % 17 % Monocytes % 5 % Eosinophils % 2 % Basophils % 1 % Neutrophils # 6.3 (1.3-7.7) k/uL Lymphocytes # 1.5 (1.0-4.8) k/uL Monocytes # 0.5 (0-1.0) k/uL Eosinophils # 0.2 (0-0.7) k/uL Basophils # 0.0 (0-0.2) k/uL PT (9.0-12.0) sec INR (<1.2) APTT (22.0-30.0) sec Sodium 143 (137-145) mmol/L Potassium 3.8 (3.5-5.1) mmol/L Chloride 114 H (98-107) mmol/L Carbon Dioxide 23 (22-30) mmol/L Anion Gap 6 mmol/L BUN 16 (7-17) mg/dL Creatinine 1.01 (0.52-1.04) mg/dL Est GFR (CKD-EPI)AfAm 59 (>60 ml/min/1.73 sqM) Est GFR (CKD-EPI)NonAf 51 (>60 ml/min/1.73 sqM) Glucose 101 H (74-99) mg/dL POC Glucose (mg/dL) 105 (70-110) mg/dL POC Glu Physical Damage Appraiser John Gifford Calcium 9.0 (8.4-10.2) mg/dL Total Bilirubin 0.5 (0.2-1.3) mg/dL AST 37 H (14-36) U/L ALT 26 (4-34) U/L Alkaline Phosphatase 61 (38-126) U/L Creatine Kinase 569 H (30-135) U/L Troponin I (0.000-0.034) ng/mL Total Protein 6.9 (6.3-8.2) g/dL Albumin 3.8 (3.5-5.0) g/dL Urine Color Urine Appearance (Clear) Urine pH (5.0-8.0) Ur Specific [place] (1.001-1.035) Urine Protein (Negative) Urine Glucose (UA) (Negative) Urine Ketones (Negative) Urine Blood (Negative) Urine Nitrite (Negative) Urine Bilirubin (Negative) Urine Urobilinogen (<2.0) mg/dL Ur Leukocyte Esterase (Negative) Urine RBC (0-5) /hpf Urine WBC (0-5) /hpf Ur Squamous Epith Cells (0-4) /hpf Urine Bacteria (None) /hpf Urine Mucus (None) /hpf 11/30/22 11/30/22 11/30/22 Range/Units 16:47 16:47 16:47 WBC (3.8-10.6) k/uL RBC (3.80-5.40) m/uL Hgb (11.4-16.0) gm/dL Hct (34.0-46.0) % MCV (80.0-100.0) fL MCH (25.0-35.0) pg MCHC (31.0-37.0) g/dL RDW (11.5-15.5) % Plt Count (150-450) k/uL MPV Neutrophils % % Lymphocytes % % Monocytes % % Eosinophils % % Basophils % % Neutrophils # (1.3-7.7) k/uL Lymphocytes # (1.0-4.8) k/uL Monocytes # (0-1.0) k/uL Eosinophils # (0-0.7) k/uL Basophils # (0-0.2) k/uL PT 10.0 (9.0-12.0) sec INR 0.9 (<1.2) APTT 22.7 (22.0-30.0) sec Sodium (137-145) mmol/L Potassium (3.5-5.1) mmol/L Chloride (98-107) mmol/L Carbon Dioxide (22-30) mmol/L Anion Gap mmol/L BUN (7-17) mg/dL Creatinine (0.52-1.04) mg/dL Est GFR (CKD-EPI)AfAm (>60 ml/min/1.73 sqM) Est GFR (CKD-EPI)NonAf (>60 ml/min/1.73 sqM) Glucose (74-99) mg/dL POC Glucose (mg/dL) (70-110) mg/dL POC Glu Physical Damage Appraiser ID Calcium (8.4-10.2) mg/dL Total Bilirubin (0.2-1.3) mg/dL AST (14-36) U/L ALT (4-34) U/L Alkaline Phosphatase (38-126) U/L Creatine Kinase (30-135) U/L Troponin I 0.015 (0.000-0.034) ng/mL Total Protein (6.3-8.2) g/dL Albumin (3.5-5.0) g/dL Urine Color Yellow Urine Appearance Cloudy H (Clear) Urine pH 5.5 (5.0-8.0) Ur Specific [place] 1.009 (1.001-1.035) Urine Protein Negative (Negative) Urine Glucose (UA) Negative (Negative) Urine Ketones Negative (Negative) Urine Blood Negative (Negative) Urine Nitrite Negative (Negative) Urine Bilirubin Negative (Negative) Urine Urobilinogen <2.0 (<2.0) mg/dL Ur Leukocyte Esterase Small H (Negative) Urine RBC 1 (0-5) /hpf Urine WBC 7 H (0-5) /hpf Ur Squamous Epith Cells <1 (0-4) /hpf Urine Bacteria Moderate H (None) /hpf Urine Mucus Rare H (None) /hpf Disposition Clinical Impression: Dementia, vascular, Fatigue Disposition: HOME SELF-CARE Condition: Stable Instructions (If sedation given, give patient instructions): Altered Mental Status (ED) Additional Instructions: consider d/c klonopin. F/U PCP 1-2 days for recheck. REturn for altered mental status, worsening symptoms, fever, or other concerns. Is patient prescribed a controlled substance at d/c from ED?: No Referrals: Nader Alvarez MD [Primary Care Provider] - 1-2 days Time of Disposition: 19:17
[2022-11-30 17:06] LABS: Basophils % (A) 1 %; Eosinophils # (A) 0.2 k/uL (0-0.7); Eosinophils % (A) 2 %; HCT 38.8 % (34.0-46.0); HGB 12.7 gm/dL (11.4-16.0); Lymphocytes # (A) 1.5 k/uL (1.0-4.8); Lymphocytes % (A) 17 %; MCH 28.6 pg (25.0-35.0); MCHC 32.6 g/dL (31.0-37.0); MCV 87.7 fL (80.0-100.0); Mean Platelet Volume 7.9; Monocytes # (A) 0.5 k/uL (0-1.0); Monocytes % (A) 5 %; Neutrophils # (A) 6.3 k/uL (1.3-7.7); Neutrophils % (A) 73 %; Platelet Count 220 k/uL (150-450); RBC 4.43 m/uL (3.80-5.40); RDW 14.2 % (11.5-15.5); WBC 8.7 k/uL (3.8-10.6)
[2022-11-30 17:18] LABS: INR 0.9 (<1.2); Partial Thromboplastin Time 22.7 sec (22.0-30.0)
[2022-11-30 17:34] LABS: Albumin 3.8 g/dL (3.5-5.0); Potassium 3.8 mmol/L (3.5-5.1); Total Bilirubin 0.5 mg/dL (0.2-1.3); Total Protein 6.9 g/dL (6.3-8.2)
--- NOTE | 2022-11-30 18:03 | CT ---
EXAMINATION TYPE: CT brain cspine wo con DATE OF EXAM: 11/30/2022 COMPARISON: 11/26/2022 HISTORY: AMS CT DLP: 1458.5 mGycm Automated exposure control for dose reduction was used. Images obtained of the brain and cervical spine with no contrast. There is hypodensity in the periventricular white matter. There is no mass effect or midline shift. N o sign of intracranial hemorrhage. Calvarium is intact. There is normal aeration of the mastoid sinus es. Sella turcica appears normal. The cervical vertebra show fairly normal alignment. There is moderate narrowing at the disc spaces at C5-6 and C6-7 with spurring of the endplates. There is minimal C4-5 subluxation. There is multilevel hypertrophic cervical facet arthropathy. No compression fracture. The skull base is intact. IMPRESSION: Multilevel spondylotic changes. No fracture. No significant change of the cervical spine compared to old exam. Cerebral atrophy and chronic small vessel ischemia. No acute intracranial abnormality. No significant change.
[2022-11-30 18:28] LABS: Appearance,Urine Cloudy (Clear); Bacteria,Urine Moderate /hpf; Bilirubin,Urine Negative (Negative); Blood,Urine Negative (Negative); Color,Urine Yellow; Glucose,Urine (UA) Negative (Negative); Ketones,Urine Negative (Negative); Leukocyte Esterase,Urine Small (Negative); Mucus,Urine Rare /hpf; Nitrite,Urine Negative (Negative); PH, Urine 5.5 (5.0-8.0); Protein,Urine Negative (Negative); RBC,Urine 1 /hpf (0-5); Specific Gravity,Urine 1.009 (1.001-1.035); Squamous Epithelial Cell,Urine <1 /hpf (0-4); Urobilinogen,Urine <2.0 mg/dL (<2.0); WBC,Urine 7 /hpf (0-5)
[2022-11-30 18:29] VITALS: BP 162/65; PULSE 55; RESP 20
--- NOTE | 2022-11-30 19:01 | XR ---
EXAMINATION TYPE: XR chest 1V portable DATE OF EXAM: 11/30/2022 COMPARISON: 11/12/2022 HISTORY: Altered mental status TECHNIQUE: Single view FINDINGS: There is some linear density at the left lung base. The other lung sagastume are clear. There are chest leads. Thoracic aorta is atheromatous. IMPRESSION: There is some mild atelectasis left lung base which is increased compared to old exam. No heart failure.
== END 2022-11-30 20:14 | disposition home or self-care (01) ==
LOC: EC 16:11
DX: F03.90 Unspecified dementia, unspecified severity, without behavioral disturbance, psychotic disturbance, mood disturbance, and anxiety (principal); R53.83 Other fatigue; E07.9 Disorder of thyroid, unspecified; E11.36 Type 2 diabetes mellitus with diabetic cataract; H26.9 Unspecified cataract; J44.9 Chronic obstructive pulmonary disease, unspecified; Z91.018 Allergy to other foods; Z88.2 Allergy status to sulfonamides; Z88.0 Allergy status to penicillin; Z88.1 Allergy status to other antibiotic agents; Z88.8 Allergy status to other drugs, medicaments and biological substances; Z88.5 Allergy status to narcotic agent; Z96.653 Presence of artificial knee joint, bilateral; Z90.710 Acquired absence of both cervix and uterus; Z90.49 Acquired absence of other specified parts of digestive tract; Z90.89 Acquired absence of other organs; Z79.890 Hormone replacement therapy; Z79.899 Other long term (current) drug therapy; Z79.82 Long term (current) use of aspirin
CPT/HCPCS: 36415; 51702; 70450; 71045; 72125; 80053; 81001; 82550; 84484; 85025; 85610; 85730; 93005; 96360; 96361; 99285

== ENCOUNTER 2022-12-05 23:14 | Inpatient (IN) | payer MEDICARE ==
[2022-12-05] MEDS ORDERED: SODIUM CHLORIDE 0.9% 1,000 ML IV STA (23:25)
[2022-12-05 23:33] LABS: Basophils % (A) 0 %; Eosinophils # (A) 0.1 k/uL (0-0.7); Eosinophils % (A) 1 %; HCT 46.8 % (34.0-46.0); HGB 15.4 gm/dL (11.4-16.0); Lymphocytes # (A) 0.8 k/uL (1.0-4.8); Lymphocytes % (A) 5 %; MCH 29.1 pg (25.0-35.0); MCHC 32.9 g/dL (31.0-37.0); MCV 88.4 fL (80.0-100.0); Mean Platelet Volume 7.7; Monocytes # (A) 0.7 k/uL (0-1.0); Monocytes % (A) 4 %; Neutrophils # (A) 14.9 k/uL (1.3-7.7); Neutrophils % (A) 89 %; Platelet Count 254 k/uL (150-450); RDW 14.1 % (11.5-15.5); WBC 16.7 k/uL (3.8-10.6)
[2022-12-05 23:45] LABS: Albumin 3.6 g/dL (3.5-5.0); Calcium 9.2 mg/dL (8.4-10.2); Magnesium 2.5 mg/dL (1.6-2.3); Potassium 4.8 mmol/L (3.5-5.1); Total Bilirubin 0.8 mg/dL (0.2-1.3); Total Protein 7.2 g/dL (6.3-8.2)
[2022-12-06] LABS: Prothrombin Time 10.6 sec (9.0-12.0)
[2022-12-06 00:02] LABS: Amorphous Sediment,Urine Few /hpf; Appearance,Urine Cloudy (Clear); Bacteria,Urine Many /hpf; Bilirubin,Urine Negative (Negative); Blood,Urine Moderate (Negative); Color,Urine Yellow; Glucose,Urine (UA) Negative (Negative); Hyaline Casts,Urine 35 /lpf (0-2); Ketones,Urine 1+ (Negative); Leukocyte Esterase,Urine Moderate (Negative); Mucus,Urine Many /hpf; Nitrite,Urine Positive (Negative); PH, Urine 6.5 (5.0-8.0); Protein,Urine 2+ (Negative); RBC,Urine 19 /hpf (0-5); Specific Gravity,Urine 1.024 (1.001-1.035); Squamous Epithelial Cell,Urine 2 /hpf (0-4); WBC,Urine 26 /hpf (0-5)
[2022-12-06 00:18] LABS: Partial Thromboplastin Time 21.2 sec (22.0-30.0)
[2022-12-06] MEDS ORDERED: DILTIAZEM DRIP BOLUS FROM BAG 1 MG SOLN IV ONE (00:29)
[2022-12-06] MEDS ORDERED: DILTIAZEM 125 MG in SODIUM CHLORIDE 0.9% 100 ML IV SCH (00:30)
--- NOTE | 2022-12-06 00:31 | CT ---
EXAMINATION TYPE: CT brain wo con DATE OF EXAM: 12/06/2022 COMPARISON: 11/30/2022 HISTORY: A FIB W/ RVR, CHANGE IN MENTATION PER CAREGIVER CT DLP: 1252.5 mGycm Automated exposure control for dose reduction was used. There is cerebral atrophy. There is no mass effect or midline shift. No sign of intracranial hemorrha ge. Calvarium is intact. There is normal aeration of the mastoid sinuses. There is some mild hypodens ity in the periventricular white matter. IMPRESSION: Cerebral atrophy and chronic white matter changes. No hemorrhage. No change compared to the old exam.
--- NOTE | 2022-12-06 00:34 | XR ---
EXAMINATION TYPE: XR chest 1V portable DATE OF EXAM: 12/06/2022 COMPARISON: 11/30/2022 HISTORY: Atrial fibrillation TECHNIQUE: 2 views FINDINGS: There is no heart failure nor confluent pneumonic infiltrate. Costophrenic angles are clear . Thoracic aorta is atheromatous. There are no hilar masses. No pleural effusion. There are chest adama ds there is linear density lateral left lung base. IMPRESSION: There is some minimal pleural reaction left lung base which is improved compared to last exam. No heart failure. Mild pulmonary fibrosis.
--- NOTE | 2022-12-06 00:55 | ED ---
General Adult HPI - General Chief complaint: Arrhythmia/Palpitations Stated complaint: Altered Mental Time Seen by Provider: 12/05/22 23:20 Source: family, EMS, RN notes reviewed, old records reviewed, Caregiver Mode of arrival: EMS Limitations: altered mental status - History of Present Illness Initial comments: 87-year-old female with progressive decline over the past one week. Family is able to give a history that the patient has not had much to eat or drink over the past week and has had a decline in her level of consciousness. Paramedics had initially reported that this was over the past 24 hours. Family does indicate that it has been progressive over week. Patient has history of dementia. Paramedics had noted that the patient was in A. fib with a rapid ventricular response, stable blood pressure. She was afebrile. - Related Data Home Medications Medication Instructions Recorded Confirmed Levothyroxine Sodium [Synthroid] 75 mcg PO DAILY@0600 09/10/18 11/30/22 Isosorbide Mononitrate ER [Imdur] 30 mg PO DAILY@0900 07/27/20 11/30/22 Losartan Potassium [Cozaar] 100 mg PO HS@209910/04/21 11/30/22 hydrALAZINE HCL 50 mg PO TID@0900,1300,209910/04/21 11/30/22 ARIPiprazole [Abilify] 5 mg PO DAILY@1700 06/17/22 11/30/22 Omeprazole Magnesium [PriLOSEC OTC] 20 mg PO DAILY@0600 06/17/22 11/30/22 Aspirin EC [Ecotrin Low Dose] 81 mg PO DAILY@0900 11/12/22 11/30/22 Ibuprofen [Motrin Ib] 200 mg PO Q8H PRN 11/12/22 11/30/22 clonazePAM [KlonoPIN] 0.5 mg PO BID PRN 11/26/22 11/30/22 Benztropine Mesylate [Cogentin] 0.5 mg PO BID@0900,209911/30/22 11/30/22 Cyanocobalamin [Vitamin B-12] 1,000 mcg PO DAILY@0900 11/30/22 11/30/22 atenoloL [Tenormin] 25 mg PO DAILY@0911/30/22 11/30/22 Allergies Allergy/AdvReac Type Severity Reaction Status Date / Time grape [Raisin] Allergy Severe Anaphylaxis Verified 11/30/22 16:39 amlodipine Allergy Rash/Hives Verified 11/30/22 16:39 & Chest Pain atorvastatin Allergy Dyspnea Verified 11/30/22 16:39 corn Allergy Anaphylaxis Verified 11/30/22 16:39 Corticosteroids Allergy Dyspnea/Chest Verified 11/30/22 16:39 (Glucocorticoids) Pain gabapentin Allergy Unknown Verified 11/30/22 16:39 glimepiride [From DUETACT] Allergy Unknown Verified 11/30/22 16:39 hydromorphone HCl Allergy Dyspnea Verified 11/30/22 16:39 [From Dilaudid] macadamia nut oil Allergy Anaphylaxis Verified 11/30/22 16:39 Mushroom Allergy Anaphylaxis Verified 11/30/22 16:39 oxycodone HCl Allergy Dyspnea & Verified 11/30/22 16:39 [From OxyContin] Hallucinations Penicillins Allergy Rash/Chest Verified 11/30/22 16:39 Pain pentazocine lactate Allergy "Blood Verified 11/30/22 16:39 [From Talwin] Pressure Dropped" pioglitazone [From DUETACT] Allergy Unknown Verified 11/30/22 16:39 risperidone [From Risperdal] Allergy Rash/Hives Verified 11/30/22 16:39 rosuvastatin [From Crestor] Allergy Dyspnea & Verified 11/30/22 16:39 Muscle Cramps tetracycline Allergy Unknown Verified 11/30/22 16:39 codeine AdvReac Hallucinations/Chest Verified 11/30/22 16:39 Pain doxycycline AdvReac Abdominal Verified 11/30/22 16:39 Pain & Muscle Pain erythromycin base AdvReac Chest Pain Verified 11/30/22 16:39 gluten AdvReac Nausea & Verified 11/30/22 16:39 Vomiting & Diarrhea hydrocodone AdvReac Chest Pain Verified 11/30/22 16:39 levofloxacin [From Levaquin] AdvReac Hallucinati Verified 11/30/22 16:39 ons loratadine AdvReac Chest Pain Verified 11/30/22 16:39 meperidine AdvReac Chest Pain Verified 11/30/22 16:39 montelukast AdvReac Unknown Verified 11/30/22 16:39 morphine AdvReac Hallucinati Verified 11/30/22 16:39 ons prednisone AdvReac Chest Pain Verified 11/30/22 16:39 propoxyphene napsylate AdvReac Chest Pain Verified 11/30/22 16:39 [From Darvocet-N 100] ramipril AdvReac "Lightheade Verified 11/30/22 16:39 dness" sulfamethoxazole AdvReac Causes Verified 11/30/22 16:39 [From Bactrim] Thrush tramadol HCl [From Ultram] AdvReac Hallucinati Verified 11/30/22 16:39 ons trimethoprim [From Bactrim] AdvReac Causes Verified 11/30/22 16:39 Thrush cottonwood Allergy Anaphylaxis Uncoded 11/30/22 16:39 pickles Allergy Anaphylaxis Uncoded 11/30/22 16:39 Review of Systems ROS Statement: Those systems with pertinent positive or pertinent negative responses have been documented in the HPI. ROS Other: All systems not noted in ROS Statement are negative. Past Medical History Past Medical History: Cancer, COPD, CVA/TIA, Dementia, Diabetes Mellitus, Fibromyalgia, Renal Disease, Sleep Apnea/CPAP/BIPAP, Thyroid Disorder Additional Past Medical History / Comment(s): Celiac disease. NIDDMdiet controlled. TIA in 2006. Hypothyroidism. 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 CATARACT/Macular Degeneration. Shingles 09/28. Uterine CA 1966 History of Any Multi-Drug Resistant Organisms: None Reported Past Surgical History: Appendectomy, Cholecystectomy, Hysterectomy, Joint Replacement, Orthopedic Surgery Additional Past Surgical History / Comment(s): TOTAL KARTIK Knees. Cervical fusion; Left Shoulder; Thyroid surgery. CTR. bilateral cataracts 12/07/15. Past Anesthesia/Blood Transfusion Reactions: No Reported Reaction Past Psychological History: No Psychological Hx Reported Smoking Status: Never smoker Past Alcohol Use History: None Reported Past Drug Use History: None Reported - Past Family History Father Family Medical History: Cancer Additional Family Medical History / Comment(s): Father at age 79 from lung cancer. Mother Family Medical History: Diabetes Mellitus Additional Family Medical History / Comment(s): Mother at age 78 from complications from diabetes. Brother(s) Family Medical History: Myocardial Infarction ([place]) Additional Family Medical History / Comment(s): Patient has one sister that lives in [place] and she does not know any medical history. General Exam General appearance: obtunded, in distress Head exam: Present: atraumatic, normocephalic Eye exam: Present: PERRL ENT exam: Present: mucous membranes dry Neck exam: Absent: meningismus Respiratory exam: Present: respiratory distress, rhonchi, decreased breath sounds Cardiovascular Exam: Present: tachycardia, irregular rhythm GI/Abdominal exam: Present: soft. Absent: distended, tenderness, guarding, rebound Extremities exam: Present: normal inspection, normal capillary refill. Absent: pedal edema Neurological exam: Absent: alert Skin exam: Present: warm, dry Course Vital Signs 12/05/22 23:28 Temperature 98.7 F Pulse Rate 160 H Respiratory 30 H Rate Blood Pressure 138/92 O2 Sat by Pulse 96 Oximetry - Reevaluation(s) Reevaluation #1: 12/06/22 00:30 Discussion with the patient's daughter who is bedside: Patient will be medical management at this time no resuscitation, no intubation. EKG Findings - EKG Comments: EKG Findings:: Atrial fibrillation with rapid ventricular response rate of 157 QRS duration 80, no ST segment elevation. Medical Decision Making - Medical Decision Making Was pt. sent in by a medical professional or institution (, PA, PEDIATRICS PHYSICIAN, urgent care, hospital, or shelter...) When possible be specific @ -Sent in from shelter Did you speak to anyone other than the patient for history (EMS, parent, family, police, friend...)? What history was obtained from this source @ -Patient's daughter who is at bedside Did you review nursing and triage notes (agree or disagree)? Why? @ -[I reviewed and agree with nursing and triage notes] Were old charts reviewed (outside hosp., previous admission, EMS record, old EKG, old radiological studies, urgent care reports/EKG's, shelter records)? Report findings @ -He prior laboratory tests including kidney function, sodium, blood counts Differential Diagnosis (chest pain, altered mental status, abdominal pain women, abdominal pain men, vaginal bleeding, weakness, fever, dyspnea, syncope, headache, dizziness, GI bleed, back pain, seizure, CVA, palpatations, mental health, musculoskeletal)? @ -Differential Altered Mental Status: Hypoglycemia, DKA, hypercapnia, ETOH, overdose, CO poisoning, trauma, myxedema coma, HTN encephalopathy, infection, encephalitis, psychosis, intercranial hemorrhage, hepatic encephalopathy, meningitis, CVA, this is not meant to be an all-inclusive list EKG interpreted by me (3pts min.). @ -[As above] X-rays interpreted by me (1pt min.). @ -Chest x-ray negative for focal pneumonia, reviewed by myself CT interpreted by me (1pt min.). @ -CT negative for intracranial hemorrhage or mass effect U/S interpreted by me (1pt. min.). @ -[None done] What testing was considered but not performed or refused? (CT, X-rays, U/S, labs)? Why? @ -[None] What meds were considered but not given or refused? Why? @ -[None] Did you discuss the management of the patient with other professionals (professionals i.e. , PA, PEDIATRICS PHYSICIAN, lab, RT, psych nurse, psych social worker, baby formula worker, teacher, client sales and service officer, lining caser)? Give summary @ -Case discussed with the admitting physician Was smoking cessation discussed for >3mins.? @ -[No] Was critical care preformed (if so, how long)? @ -yes Were there social determinants of health that impacted care today? How? (Homelessness, low income, unemployed, alcoholism, drug addiction, transp ortation, low edu. Level, literacy, decrease access to med. care, nursing home, rehab)? @ -[No] Was there de-escalation of care discussed even if they declined (Discuss DNR or withdrawal of care, Hospice)? DNR status @ -DO NOT RESUSCITATE What co-morbidities impacted this encounter? (DM, HTN, Smoking, COPD, CAD, Cancer, CVA, ARF, Chemo, Hep., AIDS, mental health diagnosis, sleep apnea, morbid obesity)? @ -Dementia Was patient admitted / discharged? Hospital course, mention meds given and r oute, prescriptions, significant lab abnormalities, going to OR and other pertinent info. @ -87-year-old female presenting in extremis tachypneic, tachycardic in A. fib with RVR which is a new diagnosis. Patient profoundly dehydrated. Blood pressure is stable. Given IV fluids and started on Cardizem. She has a leukocytosis likely secondary to UTI. She's hypernatremic at 150 per she has a minimal troponin elevation likely related to demand. I had a long discussion with the patient's daughter is at bedside regarding CODE STATUS and the patient will be a DO NOT RESUSCITATE. We will continue to provide supportive care. She'll be continued on Cardizem, IV fluids. Antibiotics have been initiated and blood cultures and urine cultures are pending. She'll be admitted to internal medicine to a monitored bed. Undiagnosed new problem with uncertain prognosis? @ -[No] Drug Therapy requiring intensive monitoring for toxicity (Heparin, Nitro, Insulin, Cardizem)? @ -[No] Were any procedures done? @ -[No] Diagnosis/symptom? @ -Altered mental status, hyponatremia, a 2 fibrillation with RVR, dehydration, UTI Acute, or Chronic, or Acute on Chronic? @ -Acute Uncomplicated (without systemic symptoms) or Complicated (systemic symptoms)? @ -Complicated Side effects of treatment? @ -[No] Exacerbation, Progression, or Severe Exacerbation? @ -[No] Poses a threat to life or bodily function? How? (Chest pain, [place], [place], pneumonia, PE, COPD, DKA, ARF, appy, cholecystitis, CVA, Diverticulitis, Homicidal, Suicidal, threat to staff... and all critical care pts) @ -Yes, arrhythmia, cardiogenic shock, septic shock, multiorgan failure - Lab Data Result diagrams: 12/05/22 23:25 12/05/22 23:25 Lab Results 12/05/22 12/05/22 12/05/22 Range/Units 23:25 23:25 23:25 WBC 16.7 H (3.8-10.6) k/uL RBC 5.30 (3.80-5.40) m/uL Hgb 15.4 (11.4-16.0) gm/dL Hct 46.8 H (34.0-46.0) % MCV 88.4 (80.0-100.0) fL MCH 29.1 (25.0-35.0) pg MCHC 32.9 (31.0-37.0) g/dL RDW 14.1 (11.5-15.5) % Plt Count 254 (150-450) k/uL MPV 7.7 Neutrophils % 89 % Lymphocytes % 5 % Monocytes % 4 % Eosinophils % 1 % Basophils % 0 % Neutrophils # 14.9 H (1.3-7.7) k/uL Lymphocytes # 0.8 L (1.0-4.8) k/uL Monocytes # 0.7 (0-1.0) k/uL Eosinophils # 0.1 (0-0.7) k/uL Basophils # 0.0 (0-0.2) k/uL PT 10.6 (9.0-12.0) sec INR 1.0 (<1.2) APTT 21.2 L (22.0-30.0) sec Sodium 150 H (137-145) mmol/L Potassium 4.8 (3.5-5.1) mmol/L Chloride 117 H (98-107) mmol/L Carbon Dioxide 23 (22-30) mmol/L Anion Gap 10 mmol/L BUN 39 H (7-17) mg/dL Creatinine 0.77 (0.52-1.04) mg/dL Est GFR (CKD-EPI)AfAm 81 (>60 ml/min/1.73 sqM) Est GFR (CKD-EPI)NonAf 71 (>60 ml/min/1.73 sqM) Glucose 144 H (74-99) mg/dL Plasma Lactic Acid Benedict (0.7-2.0) mmol/L Calcium 9.2 (8.4-10.2) mg/dL Magnesium 2.5 H (1.6-2.3) mg/dL Total Bilirubin 0.8 (0.2-1.3) mg/dL AST 48 H (14-36) U/L ALT 34 (4-34) U/L Alkaline Phosphatase 80 (38-126) U/L Troponin I (0.000-0.034) ng/mL Total Protein 7.2 (6.3-8.2) g/dL Albumin 3.6 (3.5-5.0) g/dL Urine Color Urine Appearance (Clear) Urine pH (5.0-8.0) Ur Specific Tuthill (1.001-1.035) Urine Protein (Negative) Urine Glucose (UA) (Negative) Urine Ketones (Negative) Urine Blood (Negative) Urine Nitrite (Negative) Urine Bilirubin (Negative) Urine Urobilinogen (<2.0) mg/dL Ur Leukocyte Esterase (Negative) Urine RBC (0-5) /hpf Urine WBC (0-5) /hpf Ur Squamous Epith Cells (0-4) /hpf Amorphous Sediment (None) /hpf Urine Bacteria (None) /hpf Hyaline Casts (0-2) /lpf Urine Mucus (None) /hpf 12/05/22 12/05/22 12/05/22 Range/Units 23:25 23:25 23:43 WBC (3.8-10.6) k/uL RBC (3.80-5.40) m/uL Hgb (11.4-16.0) gm/dL Hct (34.0-46.0) % MCV (80.0-100.0) fL MCH (25.0-35.0) pg MCHC (31.0-37.0) g/dL RDW (11.5-15.5) % Plt Count (150-450) k/uL MPV Neutrophils % % Lymphocytes % % Monocytes % % Eosinophils % % Basophils % % Neutrophils # (1.3-7.7) k/uL Lymphocytes # (1.0-4.8) k/uL Monocytes # (0-1.0) k/uL Eosinophils # (0-0.7) k/uL Basophils # (0-0.2) k/uL PT (9.0-12.0) sec INR (<1.2) APTT (22.0-30.0) sec Sodium (137-145) mmol/L Potassium (3.5-5.1) mmol/L Chloride (98-107) mmol/L Carbon Dioxide (22-30) mmol/L Anion Gap mmol/L BUN (7-17) mg/dL Creatinine (0.52-1.04) mg/dL Est GFR (CKD-EPI)AfAm (>60 ml/min/1.73 sqM) Est GFR (CKD-EPI)NonAf (>60 ml/min/1.73 sqM) Glucose (74-99) mg/dL Plasma Lactic Acid Benedict 1.4 (0.7-2.0) mmol/L Calcium (8.4-10.2) mg/dL Magnesium (1.6-2.3) mg/dL Total Bilirubin (0.2-1.3) mg/dL AST (14-36) U/L ALT (4-34) U/L Alkaline Phosphatase (38-126) U/L Troponin I 0.073 H* (0.000-0.034) ng/mL Total Protein (6.3-8.2) g/dL Albumin (3.5-5.0) g/dL Urine Color Yellow Urine Appearance Cloudy H (Clear) Urine pH 6.5 (5.0-8.0) Ur Specific Tuthill 1.024 (1.001-1.035) Urine Protein 2+ H (Negative) Urine Glucose (UA) Negative (Negative) Urine Ketones 1+ H (Negative) Urine Blood Moderate H (Negative) Urine Nitrite Positive H (Negative) Urine Bilirubin Negative (Negative) Urine Urobilinogen 2.0 (<2.0) mg/dL Ur Leukocyte Esterase Moderate H (Negative) Urine RBC 19 H (0-5) /hpf Urine WBC 26 H (0-5) /hpf Ur Squamous Epith Cells 2 (0-4) /hpf Amorphous Sediment Few H (None) /hpf Urine Bacteria Many H (None) /hpf Hyaline Casts 35 H (0-2) /lpf Urine Mucus Many H (None) /hpf Critical Care Time Critical Care Time: Yes Total Critical Care Time: 35 Disposition Clinical Impression: UTI (urinary tract infection), Atrial fibrillation with RVR, Hypernatremia Disposition: ADMITTED IP TO THIS HOSP Condition: Serious Is patient prescribed a controlled substance at d/c from ED?: No Referrals: Nader Alvarez MD [Primary Care Provider] - 1-2 days Time of Disposition: 01:05
[2022-12-06] MEDS ORDERED: NALOXONE 0.4 MG/ML 1 ML VIAL IV PRN (01:00)
[2022-12-06] MEDS: SODIUM CHLORIDE 0.9% 1,000 ML IV SCH ×2 (01:38→09:00)
[2022-12-06] MEDS ORDERED: DILTIAZEM 5 MG/ML 5 ML VIAL IVP STA (02:05)
[2022-12-06 03:07] VITALS: BP 172/80; RESP 14; TEMP 98.5
[2022-12-06 08:58] VITALS: PULSE 108
[2022-12-06] MEDS ORDERED: ARTIFICIAL TEARS-HYPROMELLOSE DROPS 15 ML BTL BOTH EYES PRN (09:46)
[2022-12-06] MEDS ORDERED: HALOPERIDOL LACTATE 5 MG/ML 1 ML VIAL IVP PRN (09:46)
[2022-12-06] MEDS ORDERED: HYDROmorphone 1 MG/ML 1 ML SYRINGE IVP PRN (09:46)
[2022-12-06] MEDS ORDERED: LORazepam 2 MG/ML INJ IV PRN (09:46)
[2022-12-06] MEDS ORDERED: ONDANSETRON 4 MG/2 ML VIAL IVP PRN (09:46)
[2022-12-06] MEDS ORDERED: ACETAMINOPHEN TAB 325 MG TAB PO PRN (09:46)
[2022-12-06] MEDS ORDERED: SCOPOLAMINE 1 MG/72 HR PATCH TRANSDERM SCH (10:00)
== END 2022-12-06 11:14 | disposition hospice, inpatient (51) | DRG 871 ==
LOC: EC 23:14 → 3SCARD 12-06 01:00
PROVIDERS: ADMIT Internal Medicine; ATTEND Internal Medicine
DX: A41.9 Sepsis, unspecified organism (principal); G93.41 Metabolic encephalopathy; I21.A1 Myocardial infarction type 2; N39.0 Urinary tract infection, site not specified; E87.0 Hyperosmolality and hypernatremia; I48.92 Unspecified atrial flutter; I48.91 Unspecified atrial fibrillation; M79.7 Fibromyalgia; K90.0 Celiac disease; E86.0 Dehydration; G20 Parkinson's disease; F02.80 Dementia in other diseases classified elsewhere, unspecified severity, without behavioral disturbance, psychotic disturbance, mood disturbance, and anxiety; J44.9 Chronic obstructive pulmonary disease, unspecified; N28.9 Disorder of kidney and ureter, unspecified; E11.9 Type 2 diabetes mellitus without complications; G47.30 Sleep apnea, unspecified; E03.9 Hypothyroidism, unspecified; R79.89 Other specified abnormal findings of blood chemistry; Z51.5 Encounter for palliative care; Z66 Do not resuscitate; Z96.653 Presence of artificial knee joint, bilateral; I07.1 Rheumatic tricuspid insufficiency; Z88.8 Allergy status to other drugs, medicaments and biological substances; Z86.73 Personal history of transient ischemic attack (TIA), and cerebral infarction without residual deficits; Z85.42 Personal history of malignant neoplasm of other parts of uterus; Z79.890 Hormone replacement therapy; Z79.82 Long term (current) use of aspirin; Z88.5 Allergy status to narcotic agent; Z88.0 Allergy status to penicillin; Z88.1 Allergy status to other antibiotic agents; Z88.2 Allergy status to sulfonamides
CPT/HCPCS: 36415; 70450; 71045; 80053; 81001; 83605; 83735; 84484; 85025; 85610; 85730; 87040; 87086; 93005; 96374; 96375; 96376; 99291

== ENCOUNTER 2022-12-06 11:02 | Inpatient (IN) | payer MEDICAID ==
[2022-12-06] MEDS ORDERED: LORazepam 2 MG/ML INJ IV PRN (11:06)
[2022-12-06] MEDS ORDERED: ONDANSETRON 4 MG/2 ML VIAL IVP PRN (11:06)
[2022-12-06] MEDS ORDERED: ATROPINE OPHTH SOLN 1% 5ML BTL SUBLINGUAL PRN (11:06)
[2022-12-06] MEDS ORDERED: MORPHINE SULFATE (100 MG/2 ML) 100 MG in SODIUM CHLORIDE 0.9% 100 ML IV SCH (11:15)
[2022-12-06] MEDS: MORPHINE SULFATE 2 MG/ML SYRINGE IV PRN ×3 (12:05→20:31)
--- NOTE | 2022-12-06 13:15 | P.HPIM ---
History of Present Illness H&P Date: 12/06/22 Patient is an 87-year-old female with PMH of dementia, COPD, history of CVA, hypothyroidism presents to the ED for altered mentation. Patient was recently admitted from 11/12-11/15 for facial droop and aphasiau. She underwent stroke workup. CT brain completed showing cerebral atrophy and chronic small vessel ischemia with old lacunar infarcts in the internal capsule anteriorly reported to be unchanged from previous exam completed 06/17/22. Carotid Dopplers completed showing no significant hemodynamic stenosis of carotid arteries. Echocardiogram completed and report reviewed stating an EF of greater than 55% with mild to moderate tricuspid regurgitation. MRI brain was completed and radiology report reviewed stating no evidence of intracranial mass or acute/subacute infarct showing nonspecific white matter changes likely secondary to small vessel ischemic disease. Neurology evaluated the patient at that time and thought that she demonstrated Parkinsonian features, started on Cogentin with recommendations for outpatient follow-up with neurology and psychiatry. She was discharged to [facility]. She presents back to the hospital yesterday obtunded. Apparently she has not been eating or drinking over the past week. In the ED, she was noted to be in atrial fibrillation with RVR. Her heart rate was in the 160s. She was tachypneic with a respiratory rate of 30. She required a nonrebreather to maintain a saturation greater than 92%. CBC showed leukocytosis of 16.7. Coagulation panel showed a PTT of 21.2. CMP shows sodium of 150, chloride of 117, BUN of 39, glucose 144, AST of 48. Magnesium was 2.5. Troponin was 0.073. EKG showed atrial flutter with rapid ventricular response, ventricular rate of 157. Urinalysis was positive for nitrite and moderate leukocyte esterase. Brain CT showed cerebral atrophy with chronic white matter changes. Chest x-ray showed minimal pleural reaction of the left lung base and mild pulmonary fibrosis. The case was discussed with power of investment director and family members by the ED physician and decision made to make the patient DO NOT RESUSCITATE and DO NOT INTUBATE. Family was agreeable for comfort measures and hospice care. Patient was admitted for further management of symptoms. General: Obtunded, no distress, appears at stated age Derm: warm, dry Head: atraumatic, normocephalic, symmetric Eyes: no lid lag, anicteric sclera Mouth: no lip lesion, mucus membranes moist Cardiovascular: Irregularly regular, no murmur Lungs: Decreased breath sounds bilateral, no rhonchi, no rales , no accessory muscle use Ext: no gross muscle atrophy, no edema, no contractures Neuro: Unable to assess Psych: Unable to assess #Acute metabolic encephalopathy #Sepsis likely related to UTI #Type II NSTEMI #Hypernatremia #Prerenal azotemia Chronic conditions: Dementia, COPD, history of CVA, hypothyroidism Based on my assessment of this patient, this patient meets a high complexity level of care. I have reviewed the following natural remedy consultant notes: None. I have reviewed the results of the following tests: CBC showed leukocytosis of 16.7. Coagulation panel showed a PTT of 21.2. CMP shows sodium of 150, chloride of 117, BUN of 39, glucose 144, AST of 48. Magnesium was 2.5. Troponin was 0.073. Urinalysis was positive for nitrite and moderate leukocyte esterase. Brain CT showed cerebral atrophy with chronic white matter changes. Chest x-ray showed minimal pleural reaction of the left lung base and mild pulmonary fibrosis. I have ordered the following tests: None. I have discussed the care of this patient with the following independent historian: The case was discussed extensively with family at bedside who is also her guardian. Decision has been made to pursue comfort measures and consult hospice. I have independently interpreted the following test below: EKG showed atrial flutter with rapid ventricular response, ventricular rate of 157. I have discussed the management of this patient with the following physician: None. This patient has a high risk of morbidity due to the following reasons: Patient has an acute diagnosis of acute metabolic encephalopathy that poses a threat to life or bodily function. Patient meets sepsis criteria with leukocytosis, tachycardia and positive source of infection. She also has elevated troponins likely demand ischemia from atrial flutter with RVR. She appears to be severely dehydrated with sodium of 150. The case was discussed extensively with family at bedside who is also her guardian. Decision has been made to pursue comfort measures and consult hospice. Start Dilaudid 1 mg IV every 2 hours as needed for severe pain. Start Haldol 2 mg IV every 4 hours as needed for agitation. Start Ativan 1 mg IV every 6 hours as needed for anxiety. Start Zofran 4 mg IV every 8 hours as needed for nausea and vomiting. Start Scopolamine patch 1 mg transdermally every 72 hours for secretions. Plans to consult hospice. Past Medical History Past Medical History: Cancer, COPD, CVA/TIA, Dementia, Diabetes Mellitus, Fibromyalgia, Renal Disease, Sleep Apnea/CPAP/BIPAP, Thyroid Disorder Additional Past Medical History / Comment(s): Celiac disease. NIDDMdiet controlled. TIA in 2006. Hypothyroidism. 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 CATARACT/Macular Degeneration. Shingles 09/28. Uterine CA 1966 History of Any Multi-Drug Resistant Organisms: None Reported Past Surgical History: Appendectomy, Cholecystectomy, Hysterectomy, Joint Replacement, Orthopedic Surgery Additional Past Surgical History / Comment(s): TOTAL KARTIK Knees. Cervical fusion; Left Shoulder; Thyroid surgery. CTR. bilateral cataracts 12/07/15. Past Anesthesia/Blood Transfusion Reactions: No Reported Reaction Past Psychological History: No Psychological Hx Reported Additional Psychological History / Comment(s): lives with daughter. legal guardian is daughters per Danuta Thacker Smoking Status: Never smoker Past Alcohol Use History: None Reported Additional Past Alcohol Use History / Comment(s): Her son occasionally stays with her according to the patient. Past Drug Use History: None Reported - Past Family History Father Family Medical History: Cancer Additional Family Medical History / Comment(s): Father at age 79 from lung cancer. Mother Family Medical History: Diabetes Mellitus Additional Family Medical History / Comment(s): Mother at age 78 from complications from diabetes. Brother(s) Family Medical History: Myocardial Infarction ([place]) Additional Family Medical History / Comment(s): Patient has one sister that lives in [place] and she does not know any medical history. Medications and Allergies Home Medications Medication Instructions Recorded Confirmed Type Levothyroxine Sodium [Synthroid] 75 mcg PO DAILY@0600 09/10/18 12/06/22 History Isosorbide Mononitrate ER [Imdur] 30 mg PO DAILY@0900 07/27/20 12/06/22 History Losartan Potassium [Cozaar] 100 mg PO HS@209910/04/21 12/06/22 History hydrALAZINE HCL 50 mg PO TID@0900,1300,2100 10/04/21 12/06/22 History Omeprazole Magnesium [PriLOSEC OTC] 20 mg PO DAILY@0600 06/17/22 12/06/22 History Aspirin EC [Ecotrin Low Dose] 81 mg PO DAILY@0900 11/12/22 12/06/22 History Benztropine Mesylate [Cogentin] 0.5 mg PO BID@0900,2100 11/30/22 12/06/22 History Cyanocobalamin [Vitamin B-12] 1,000 mcg PO DAILY@0900 11/30/22 12/06/22 History atenoloL [Tenormin] 25 mg PO DAILY@0900 11/30/22 12/06/22 History ARIPiprazole [Abilify] 7.5 mg PO HS 12/06/22 12/06/22 History Lactose-Reduced Food [Ensure Plus] 240 ml PO BID@0900,199912/06/22 12/06/22 History Allergies Allergy/AdvReac Type Severity Reaction Status Date / Time grape [Raisin] Allergy Severe Anaphylaxis Verified 12/06/22 07:25 amlodipine Allergy Rash/Hives Verified 12/06/22 07:25 & Chest Pain atorvastatin Allergy Dyspnea Verified 12/06/22 07:25 corn Allergy Anaphylaxis Verified 12/06/22 07:25 Corticosteroids Allergy Dyspnea/Chest Verified 12/06/22 07:25 (Glucocorticoids) Pain gabapentin Allergy Unknown Verified 12/06/22 07:25 glimepiride [From DUETACT] Allergy Unknown Verified 12/06/22 07:25 hydromorphone HCl Allergy Dyspnea Verified 12/06/22 07:25 [From Dilaudid] macadamia nut oil Allergy Anaphylaxis Verified 12/06/22 07:25 montelukast Allergy Unknown Verified 12/06/22 07:25 Mushroom Allergy Anaphylaxis Verified 12/06/22 07:25 oxycodone HCl Allergy Dyspnea & Verified 12/06/22 07:25 [From OxyContin] Hallucinations Penicillins Allergy Rash/Chest Verified 12/06/22 07:25 Pain pentazocine lactate Allergy "Blood Verified 12/06/22 07:25 [From Talwin] Pressure Dropped" pioglitazone [From DUETACT] Allergy Unknown Verified 12/06/22 07:25 risperidone [From Risperdal] Allergy Rash/Hives Verified 12/06/22 07:25 rosuvastatin [From Crestor] Allergy Dyspnea & Verified 12/06/22 07:25 Muscle Cramps tetracycline Allergy Unknown Verified 12/06/22 07:25 codeine AdvReac Hallucinations/Chest Verified 12/06/22 07:25 Pain doxycycline AdvReac Abdominal Verified 12/06/22 07:25 Pain & Muscle Pain erythromycin base AdvReac Chest Pain Verified 12/06/22 07:25 gluten AdvReac Nausea & Verified 12/06/22 07:25 Vomiting & Diarrhea hydrocodone AdvReac Chest Pain Verified 12/06/22 07:25 levofloxacin [From Levaquin] AdvReac Hallucinati Verified 12/06/22 07:25 ons loratadine AdvReac Chest Pain Verified 12/06/22 07:25 meperidine AdvReac Chest Pain Verified 12/06/22 07:25 morphine AdvReac Hallucinati Verified 12/06/22 07:25 ons prednisone AdvReac Chest Pain Verified 12/06/22 07:25 propoxyphene napsylate AdvReac Chest Pain Verified 12/06/22 07:25 [From Darvocet-N 100] ramipril AdvReac "Lightheade Verified 12/06/22 07:25 dness" sulfamethoxazole AdvReac Causes Verified 12/06/22 07:25 [From Bactrim] Thrush tramadol HCl [From Ultram] AdvReac Hallucinati Verified 12/06/22 07:25 ons trimethoprim [From Bactrim] AdvReac Causes Verified 12/06/22 07:25 Thrush cottonwood Allergy Anaphylaxis Uncoded 12/06/22 07:25 pickles Allergy Anaphylaxis Uncoded 11/30/22 16:39 Physical Exam Vitals: Intake and Output 12/05/22 12/06/22 12/06/22 22:59 06:59 14:59 Other: Weight 58.9 kg
[2022-12-06] MEDS ORDERED: ACETAMINOPHEN SUPPOSITORY 650 MG SUPP RECTAL PRN (15:51)
[2022-12-07] MEDS: MORPHINE SULFATE 2 MG/ML SYRINGE IV PRN (01:29)
[2022-12-07] MEDS: MORPHINE SULFATE 4 MG/ML SYRINGE IV PRN ×2 (04:36→06:10)
--- NOTE | 2022-12-07 14:46 | P.PN ---
Subjective Progress Note Date: 12/07/22 Patient is an 87-year-old female with PMH of dementia, COPD, history of CVA, hypothyroidism presents to the ED for altered mentation. Patient was recently admitted from 11/12-11/15 for facial droop and aphasiau. She underwent stroke workup. CT brain completed showing cerebral atrophy and chronic small vessel ischemia with old lacunar infarcts in the internal capsule anteriorly reported to be unchanged from previous exam completed 06/17/22. Carotid Dopplers completed showing no significant hemodynamic stenosis of carotid arteries. Echocardiogram completed and report reviewed stating an EF of greater than 55% with mild to moderate tricuspid regurgitation. MRI brain was completed and radiology report reviewed stating no evidence of intracranial mass or acute/subacute infarct showing nonspecific white matter changes likely secondary to small vessel ischemic disease. Neurology evaluated the patient at that time and thought that she demonstrated Parkinsonian features, started on Cogentin with recommendations for outpatient follow-up with neurology and psychiatry. She was discharged to [facility]. She presents back to the hospital yesterday obtunded. Apparently she has not been eating or drinking over the past week. In the ED, she was noted to be in atrial fibrillation with RVR. Her heart rate was in the 160s. She was tachypneic with a respiratory rate of 30. She required a nonrebreather to maintain a saturation greater than 92%. CBC showed leukocytosis of 16.7. Coagulation panel showed a PTT of 21.2. CMP shows sodium of 150, chloride of 117, BUN of 39, glucose 144, AST of 48. Magnesium was 2.5. Troponin was 0.073. EKG showed atrial flutter with rapid ventricular response, ventricular rate of 157. Urinalysis was positive for nitrite and moderate leukocyte esterase. Brain CT showed cerebral atrophy with chronic white matter changes. Chest x-ray showed minimal pleural reaction of the left lung base and mild pulmonary fibrosis. The case was discussed with power of assistant county attorney and family members by the ED physician and decision made to make the patient DO NOT RESUSCITATE and DO NOT INTUBATE. Family was agreeable for comfort measures and hospice care. Patient was admitted for further management of symptoms. Patient seen and examined this morning. No acute events overnight. Multiple family members at bedside. General: Obtunded, no distress, appears at stated age Derm: warm, dry Head: atraumatic, normocephalic, symmetric Eyes: no lid lag, anicteric sclera Mouth: no lip lesion, mucus membranes moist Lungs: no accessory muscle use Ext: no gross muscle atrophy, no edema, no contractures Neuro: Unable to assess Psych: Unable to assess #Acute metabolic encephalopathy #Sepsis likely related to UTI #Type II NSTEMI #Hypernatremia #Prerenal azotemia Chronic conditions: Dementia, COPD, history of CVA, hypothyroidism Based on my assessment of this patient, this patient meets a moderate complexity level of care. I have reviewed the following data management consultant notes: None. I have reviewed the results of the following tests: None. I have ordered the following tests: None. I have discussed the care of this patient with the following independent historian: The case was discussed extensively with family at bedside who is also her guardian. They report that the patient appears comfortable. I have independently interpreted the following test below: None. I have discussed the management of this patient with the following physician: None. This patient has a moderate risk of morbidity due to the following reasons: Patient has an acute diagnosis of acute metabolic encephalopathy that poses a threat to life or bodily function. Patient meets sepsis criteria with leukocytosis, tachycardia and positive source of infection. She also has elevated troponins likely demand ischemia from atrial flutter with RVR. She appears to be severely dehydrated with sodium of 150. The case was discussed extensively with family at bedside who is also her guardian. Decision has been made to pursue comfort measures. Continue morphine drip currently at 6 mg/h and titrate as necessary. Ativan 1 mg IV every 4 hours as needed for anxiety. Zofran 4 mg IV every 8 hours as needed for nausea and vomiting. Continue scopolamine patch 1 mg transdermal every 72 hours. Objective - Vital Signs Vital signs: Vital Signs Temp Pulse Resp 24 12/07/22 11:45 BP Pulse Ox 93 L 12/07/22 09:01 FiO2 Intake & Output 12/06/22 12/07/22 12/07/22 18:59 06:59 18:59 Intake Total .618 Output Total 0 Balance 618 Weight 58.9 kg Intake: Intake, IV Titration .618 Amount Morphine Sulfate (100 mg/ .618 2 ml) 100 mg In Sodium Chloride 0.9% 100 ml @ 1 MG/HR 1.02 mls/hr IV . Q24H [facility] Rx#:[id number] Output: Gastric Drainage 0 Urine 0 Stool 0 Urine/Stool Mix 0 Emesis 0 Oral Regurgitation 0 Other: Voiding Method Indwelling Catheter Indwelling Catheter # Voids 0 # Bowel Movements 0
[2022-12-07 17:10] VITALS: RESP 23
--- NOTE | 2022-12-08 13:23 | P.DS ---
Providers Date of admission: 12/06/22 11:23 Expected date of discharge: 12/08/22 Attending physician: Bruce Arreguin MD Primary care physician: Bruce Arreguin MD Hospital Course: Patient is an 87-year-old female with PMH of dementia, COPD, history of CVA, hypothyroidism presents to the ED for altered mentation. Patient was recently admitted from 11/12-11/15 for facial droop and aphasiau. She underwent stroke workup. CT brain completed showing cerebral atrophy and chronic small vessel ischemia with old lacunar infarcts in the internal capsule anteriorly reported to be unchanged from previous exam completed 06/17/22. Carotid Dopplers completed showing no significant hemodynamic stenosis of carotid arteries. Echocardiogram completed and report reviewed stating an EF of greater than 55% with mild to moderate tricuspid regurgitation. MRI brain was completed and radiology report reviewed stating no evidence of intracranial mass or acute/subacute infarct showing nonspecific white matter changes likely secondary to small vessel ischemic disease. Neurology evaluated the patient at that time and thought that she demonstrated Parkinsonian features, started on Cogentin with recommendations for outpatient follow-up with neurology and psychiatry. She was discharged to [facility]. She presents back to the hospital yesterday obtunded. Apparently she has not been eating or drinking over the past week. In the ED, she was n oted to be in atrial fibrillation with RVR. Her heart rate was in the 160s. She was tachypneic with a respiratory rate of 30. She required a nonrebreather to maintain a saturation greater than 92%. CBC showed leukocytosis of 16.7. Coagulation panel showed a PTT of 21.2. CMP shows sodium of 150, chloride of 117, BUN of 39, glucose 144, AST of 48. Magnesium was 2.5. Troponin was 0.073. EKG showed atrial flutter with rapid ventricular response, ventricular rate of 157. Urinalysis was positive for nitrite and moderate leukocyte esterase. Brain CT showed cerebral atrophy with chronic white matter changes. Chest x-ray showed minimal pleural reaction of the left lung base and mild pulmonary fibrosis. The case was discussed with power of radio tower technician and family members by the ED physician and decision made to make the patient DO NOT RESUSCITATE and DO NOT INTUBATE. Family was agreeable for comfort measures and hospice care. Patient on 12/07. Pertinent studies include brain CT, chest x-ray. Refer to progress note for physical exam. Discharge diagnosis: #Acute metabolic encephalopathy #Sepsis likely related to UTI #Type II NSTEMI #Hypernatremia #Prerenal azotemia Chronic conditions: Dementia, COPD, history of CVA, hypothyroidism Plan - Discharge Summary New Discharge Prescriptions: No Action Levothyroxine Sodium [Synthroid] 75 mcg PO DAILY@0600 Isosorbide Mononitrate ER [Imdur] 30 mg PO DAILY@0900 hydrALAZINE HCL 50 mg PO TID@0900,1300,2099 Losartan Potassium [Cozaar] 100 mg PO HS@2099 Omeprazole Magnesium [PriLOSEC OTC] 20 mg PO DAILY@0600 Cyanocobalamin [Vitamin B-12] 1,000 mcg PO DAILY@0900 ARIPiprazole [Abilify] 7.5 mg PO HS Aspirin EC [Ecotrin Low Dose] 81 mg PO DAILY@0900 atenoloL [Tenormin] 25 mg PO DAILY@0900 Benztropine Mesylate [Cogentin] 0.5 mg PO BID@0900,2099 Lactose-Reduced Food [Ensure Plus] 240 ml PO BID@899,1999 Discharge Medication List Levothyroxine Sodium [Synthroid] 75 mcg PO DAILY@0600 09/10/18 [History] Isosorbide Mononitrate ER [Imdur] 30 mg PO DAILY@0900 07/27/20 [History] Losartan Potassium [Cozaar] 100 mg PO HS@209910/04/21 [History] hydrALAZINE HCL 50 mg PO TID@0900,1300,2100 10/04/21 [History] Omeprazole Magnesium [PriLOSEC OTC] 20 mg PO DAILY@0600 06/17/22 [History] Aspirin EC [Ecotrin Low Dose] 81 mg PO DAILY@0900 11/12/22 [History] Benztropine Mesylate [Cogentin] 0.5 mg PO BID@0900,209911/30/22 [History] Cyanocobalamin [Vitamin B-12] 1,000 mcg PO DAILY@0900 11/30/22 [History] atenoloL [Tenormin] 25 mg PO DAILY@0900 11/30/22 [History] ARIPiprazole [Abilify] 7.5 mg PO HS 12/06/22 [History] Lactose-Reduced Food [Ensure Plus] 240 ml PO BID@0900,199912/06/22 [History] Discharge Disposition: - Preliminary Cause of Preliminary Cause of : Sepsis, hypernatremia
[2022-12-09] MEDS ORDERED: SCOPOLAMINE 1 MG/72 HR PATCH TRANSDERM SCH (10:00)
== END 2022-12-07 22:42 | disposition expired | DRG 951 ==
LOC: 3SCARD 11:23
PROVIDERS: ADMIT Family Medicine; ATTEND Family Medicine
DX: Z51.5 Encounter for palliative care (principal); G93.41 Metabolic encephalopathy; I21.A1 Myocardial infarction type 2; E87.0 Hyperosmolality and hypernatremia; I48.92 Unspecified atrial flutter; N39.0 Urinary tract infection, site not specified; F03.90 Unspecified dementia, unspecified severity, without behavioral disturbance, psychotic disturbance, mood disturbance, and anxiety; Z98.49 Cataract extraction status, unspecified eye; Z86.73 Personal history of transient ischemic attack (TIA), and cerebral infarction without residual deficits; B02.9 Zoster without complications; E06.3 Autoimmune thyroiditis; E11.9 Type 2 diabetes mellitus without complications; J44.9 Chronic obstructive pulmonary disease, unspecified; I07.1 Rheumatic tricuspid insufficiency; G31.89 Other specified degenerative diseases of nervous system; I48.91 Unspecified atrial fibrillation; K90.0 Celiac disease; Z79.890 Hormone replacement therapy; M79.7 Fibromyalgia; Z66 Do not resuscitate; Z79.82 Long term (current) use of aspirin; Z79.899 Other long term (current) drug therapy; Z85.42 Personal history of malignant neoplasm of other parts of uterus; Z90.710 Acquired absence of both cervix and uterus; Z90.49 Acquired absence of other specified parts of digestive tract; Z88.8 Allergy status to other drugs, medicaments and biological substances; Z91.018 Allergy to other foods; Z96.653 Presence of artificial knee joint, bilateral; Z88.0 Allergy status to penicillin; Z88.6 Allergy status to analgesic agent; Z88.1 Allergy status to other antibiotic agents; Z88.5 Allergy status to narcotic agent
CPT/HCPCS: 94760